=== PATIENT | female | born 1995 | race Caucasian/White ===

== ENCOUNTER → 2022-05-04 | Outpatient (CLI) | payer OTHER, SELFPAY ==
[2022-05-05 22:07] LABS: Chlamydia By Nucleic Acid AMP Negative (Negative)
[2022-05-06 08:55] LABS: Gonococcus By Nucleic Acid AMP Negative (Negative)
== END | disposition home or self-care (01) ==
LOC: LABSPEC 11:20
PROVIDERS: Visit Provider Obstetrics & Gynecology
DX: O09.90 Supervision of high risk pregnancy, unspecified, unspecified trimester (principal); Z3A.00 Weeks of gestation of pregnancy not specified
CPT/HCPCS: 87086; 87088; 87491; 87591

== ENCOUNTER → 2022-05-29 | Outpatient (CLI) | payer OTHER, SELFPAY ==
[2022-05-29 13:12] LABS: Absolute Lymphocyte Count 2.19 X10^3/uL (0.83-4.51); Absolute Neutrophil Count 6.7 X10^3/uL (2.0-7.7); Basophil# 0.04 X10^3/uL; Basophil% 0.4 % (0-1); Eosinophil# 0.08 X10^3/uL; Eosinophils% 0.8 % (0-5); Hematocrit 39.1 % (37-47); Hemoglobin 13.1 g/dL (12.0-15.0); Lymphocyte # 2.19 X10^3/ul (0.83-4.51); Lymphocyte % 22.8 % (19-41); Mean Corp Hgb Conc 33.5 g/dL (32-36); Mean Corpuscular Hgb 31.1 pg (27.0-32.0); Mean Corpuscular Volume 92.9 fL (81-99); Mean Platelet Vol. 9.7 fl (6.2-12.0); Monocyte# 0.53 X10^3/uL; Monocyte% 5.5 % (0-10); NRBC Flagged by Analyzer 0 % (0-5); Neutrophil # 6.74 X10^3/uL (2.7-7.7); Neutrophil % 70.3 % (47-70); Platelet Count 251 K/mm3 (150-450); RBC Distribution Width CV 11.7 % (11.6-14.6); RBC Distribution Width SD 39.7 fl (35.1-43.9); Red Blood Count 4.21 M/mm3 (4.2-5.4); White Blood Count 9.6 K/mm3 (4.4-11.0)
[2022-05-29 13:53] LABS: NATERA MAILED SPECIMEN
[2022-05-29 14:24] LABS: HIV - WCH Non-Reactive (Nonreactive); Hepatitis B Surface Antigen Non-Reactive (Nonreactive); Hepatitis C Antibody Non-Reactive (Nonreactive); Rubella IgG Equiv (Nonreactive); Syphilis Antibodies Non-reactive
== END | disposition home or self-care (01) ==
LOC: LAB 12:43
PROVIDERS: Referring Provider Obstetrics & Gynecology; Visit Provider Obstetrics & Gynecology
DX: O09.90 Supervision of high risk pregnancy, unspecified, unspecified trimester (principal); Z3A.00 Weeks of gestation of pregnancy not specified
CPT/HCPCS: 36415; 85025; 86703; 86762; 86780; 86803; 86850; 86900; 86901; 87340

== ENCOUNTER → 2022-09-18 | Outpatient (CLI) | payer OTHER, SELFPAY ==
[2022-09-18 16:07] LABS: Glucose Challenge Gest 1H 50g 91 mg/dL (70-140)
[2022-09-18 16:29] LABS: Absolute Lymphocyte Count 1.88 X10^3/uL (0.83-4.51); Absolute Neutrophil Count 8.5 X10^3/uL (2.0-7.7); Basophil# 0.04 X10^3/uL; Basophil% 0.4 % (0-1); Eosinophil# 0.04 X10^3/uL; Eosinophils% 0.4 % (0-5); Hematocrit 35.8 % (37-47); Hemoglobin 12.2 g/dL (12.0-15.0); Lymphocyte # 1.88 X10^3/ul (0.83-4.51); Lymphocyte % 16.8 % (19-41); Mean Corp Hgb Conc 34.1 g/dL (32-36); Mean Corpuscular Hgb 32.4 pg (27.0-32.0); Mean Corpuscular Volume 95.2 fL (81-99); Monocyte# 0.66 X10^3/uL; Monocyte% 5.9 % (0-10); NRBC Flagged by Analyzer 0 % (0-5); Neutrophil # 8.49 X10^3/uL (2.7-7.7); Neutrophil % 76.1 % (47-70); Platelet Count 242 K/mm3 (150-450); RBC Distribution Width CV 12.2 % (11.6-14.6); RBC Distribution Width SD 42.5 fl (35.1-43.9); Red Blood Count 3.76 M/mm3 (4.2-5.4); White Blood Count 11.2 K/mm3 (4.4-11.0)
[2022-09-18 17:41] LABS: HIV - WCH Non-Reactive (Nonreactive); Syphilis Antibodies Non-reactive
== END | disposition home or self-care (01) ==
LOC: LAB 15:17
PROVIDERS: Nurse Practitioner Women's Health; PCP Nurse Practitioner Family; Referring Provider Obstetrics & Gynecology; Visit Provider Obstetrics & Gynecology
DX: O09.90 Supervision of high risk pregnancy, unspecified, unspecified trimester (principal); Z3A.00 Weeks of gestation of pregnancy not specified
CPT/HCPCS: 36415; 82950; 85025; 86703; 86780

== ENCOUNTER → 2022-11-13 | Outpatient (CLI) | payer OTHER, SELFPAY | END | disposition home or self-care (01) | LOC: LABSPEC 17:00 | PROVIDERS: PCP Nurse Practitioner Family; Referring Provider Obstetrics & Gynecology; Visit Provider Obstetrics & Gynecology | DX: O09.90 Supervision of high risk pregnancy, unspecified, unspecified trimester (principal) | CPT/HCPCS: 87081 ==

== ENCOUNTER → 2022-11-14 | Outpatient (CLI) | payer OTHER, SELFPAY ==
--- NOTE | 2022-11-14 12:16 | US_ITS ---
STUDY: SECOND AND THIRD TRIMESTER OBSTETRICAL ULTRASOUND - LIMITED REASON FOR EXAM: Female, 27 years old uterine size date discrepancy LMP: March 06, 2022. PRIOR ULTRASOUND: None. TECHNIQUE: Transabdominal TECHNICAL QUALITY: Adequate. FINDINGS: There is a single intrauterine fetus. The fetus is in a cephalic presentation. There is demonstrated cardiac activity with a heart rate of 139 bpm. There is a normal amniotic fluid volume. The largest amniotic fluid pocket measures 6.7 cm x 4.5 cm. The amniotic fluid index (DESMOND) is 14.6 cm. The placenta is anterior in location and is not low lying. There are Grade 2 placental changes. The cervix measures 4 cm in length. BIOMETRY: BPD: 8.39 cm: 33 weeks, 6 days HC: 31.17 cm: 34 weeks, 6 days AC: 31.87 cm: 35 weeks, 6 days FL: 7.32 cm: 37 weeks, 3 days Age by LMP: 36 weeks, 1 days. CHANTEL by LMP: December 11, 2022. age by current US: 35 weeks, 2 days. CHANTEL by current US: December 17, 2022. Estimated weight: 2828 grams, +/- 424 grams, 48 percentile. US/OB Limited With Biometrics IMPRESSION: Single live uterine gestation with a mean gestational age of 35 weeks and 2 days. Electronically Signed: Jack Schwab MD at 14:59 EDT ,
== END | disposition home or self-care (01) ==
LOC: OPUS 12:15
PROVIDERS: PCP Nurse Practitioner Family; Referring Provider Obstetrics & Gynecology; Visit Provider Obstetrics & Gynecology
DX: O26.843 Uterine size-date discrepancy, third trimester (principal); Z3A.35 35 weeks gestation of pregnancy
CPT/HCPCS: 76816

== ENCOUNTER 2022-12-12 05:49 | Inpatient (IN) | payer OTHER, SELFPAY ==
[2022-12-12] VITALS (64 sets, daily range): BP systolic 93–128; BP diastolic 55–85; PULSE 65–100; TEMP 36.3–37.4; O2SAT 94–100; BMI 29.5
[2022-12-12 05:47] LABS: ROM Internal Control Test YES-OK TO RESULT pt. (Internal QC)
[2022-12-12 05:48] LABS: ROM Patient Test POSITIVE (Negative); Record Kit Lot#, ROM+ K1409
[2022-12-12 06:55] LABS: Absolute Lymphocyte Count 2.12 X10^3/uL (0.83-4.51); Absolute Neutrophil Count 8.3 X10^3/uL (2.0-7.7); Basophil# 0.04 X10^3/uL; Basophil% 0.4 % (0-1); Eosinophil# 0.07 X10^3/uL; Eosinophils% 0.6 % (0-5); Hematocrit 37.5 % (37-47); Hemoglobin 12.3 g/dL (12.0-15.0); Lymphocyte # 2.12 X10^3/ul (0.83-4.51); Lymphocyte % 18.6 % (19-41); Mean Corp Hgb Conc 32.8 g/dL (32-36); Mean Corpuscular Hgb 31.4 pg (27.0-32.0); Mean Corpuscular Volume 95.7 fL (81-99); Monocyte# 0.81 X10^3/uL; Monocyte% 7.1 % (0-10); NRBC Flagged by Analyzer 0 % (0-5); Neutrophil # 8.27 X10^3/uL (2.7-7.7); Neutrophil % 72.5 % (47-70); Platelet Count 225 K/mm3 (150-450); RBC Distribution Width CV 12.6 % (11.6-14.6); RBC Distribution Width SD 43.6 fl (35.1-43.9); Red Blood Count 3.92 M/mm3 (4.2-5.4); White Blood Count 11.4 K/mm3 (4.4-11.0)
[2022-12-12] MEDS: Lactated Ringers 1,000 ML 50 ML IV (07:20)
--- NOTE | 2022-12-12 08:07 | HP.PCM.OB_ITS ---
HPI - General General Date of Admission: 12/12/22 Date of Service: 12/12/22 HPI Narrative GURDEEP BROWN, is a 27 F 40.1 weeks who presents with SROM for clear fluid at 0300 this am. Maternal Data Information CHANTEL Calculator Estimated Delivery Date Method Current WG Current Estimate 12/11/22 LMP (Certain) 40w 1d Other Estimates 12/10/22 Ultrasound #1 40w 2d Final CHANTEL: 12/11/22 Final CHANTEL Source: US >20 weeks Gestational age: 40.1 weeks PFSH PFSH Medical History HSV (herpes simplex virus) infection Home Medications multivitamin no.47-iron fum 27 mg-folate no.1 1 mg-dha 300 mg capsule (PNV-DHA) cap PO 04/26/22 [History Last Taken 12/11/22] magnesium 250 mg tablet 250 mg PO DAILY 09/18/22 [History Last Taken 12/11/22] valacyclovir 500 mg tablet (Valtrex) 500 mg PO QDAY #30 tabs 10/30/22 [Rx Last Taken 12/11/22] Allergy/AdvReac Type Severity Reaction Status Date / Time Sulfa (Sulfonamide AdvReac Vomiting Verified 12/12/22 05:10 Antibiotics) Family History Father A-fib Surgical History H/O LEEP History of colposcopy Social History adopted: No household members: spouse housing: house current occupational status: employed current occupation: [employer] from [employer] current occupational exposures/hazards: No pets and animals: Yes (Litter box-) pets and animals: cat(s) and dog(s) history of recent travel: Yes out of state: Yes sexually active: Yes Smoking Status: Never smoker Electronic Cigarette Use: not used alcohol intake: current alcohol intake frequency: holidays/special occasions only substance use type: does not use well-balanced diet: daily or most days caffeine: No eating out: 1-3 times/week seatbelt use: always do you feel safe at home: Yes 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 History 1 Elective abortions Hx Para 0 Spontaneous abortions Hx # Term Pregnancies Ectopic pregnancies Hx # Pregnancies Multiple births # of living children Visit Details Expected Delivery Route/Plan Labor Preferences- CB/BF classes: encouraged labor support person: Lm labor intervention preferences: [] pain management options preferred: limited cut cord/dad catch: cord : yes PP control planned: discussed discussed possible routes of delivery and associated risks: [] special requests: [] Plans Covid status: discussed Flu vaccine: discussed Tdap vaccine: given Rhogam: NA LARC form signed: yes movement and labor precautions reviewed. Problem list reviewed and updated with the most current plan of care details and appropriate orders placed. Relevant counseling for the gestational age provided. Continue routine care and follow up unless otherwise noted in visit notes/problem list details OB Flowsheet Initial Weight: Not Recorded Date -?-?-?-?-?-?-?-?-?-?-?-?- EGA Weight BP Urine Prot -?-?-?-?-?-?-?-?-?-?-?-?- Glucose FHR FuHt Pres Dilation -?-?-?-?-?-?-?-?-?-?-?-?- Effaced St Visit Note 05/04/22 -?-?-?-?-?-?-?-?-?-?-?-?- 8w 3d 147 lb 6 oz 118/78 -?-?-?-?-?-?-?-?-?-?-?-?- 170 -?-?-?-?-?-?-?-?-?-?-?-?- SM- CRL 1.8cm co ns with LMP 05/29/22 -?-?-?-?-?-?-?-?-?-?-?-?- 12w 0d 144 lb 2 oz 110/62 Nega tive -?-?-?-?-?-?-?-?-?-?-?-?- Negative 160 -?-?-?-?-?-?-?-?-?-?-?-?- MH-No VB. Fatigu e improved. No other concerns. PN labs today 06/26/22 -?-?-?-?-?-?-?-?-?-?-?-?- 16w 0d 143 lb 4 oz 106/72 Nega tive -?-?-?-?-?-?-?-?-?-?-?-?- Negative 155 -?-?-?-?-?-?-?-?-?-?-?-?- LC-no vb/crampin g. discussed and declines afp. has anatomy scheduled. LC-no vb/cramping. discussed and declines afp. has anatomy scheduled. normal labs 07/26/22 -?-?-?-?-?-?-?-?-?-?-?-?- 20w 2d 149 lb 6 oz Negative -?-?-?-?-?-?-?-?-?-?-?-?- Negative 160 20 -?-?-?-?-?-?-?-?-?-?-?-?- JV- no lof, vagi nal bleeding, or cramping. pt states that she got a $1600. (has [employer] insurance) 08/25/22 -?-?-?-?-?-?-?-?-?-?-?-?- 24w 4d 152 lb 6 oz 108/73 Nega tive -?-?-?-?-?-?-?-?-?-?-?-?- Negative 160 24 -?-?-?-?-?-?-?-?-?-?-?-?- SM- no vb lof go od fm no regular ctx 09/18/22 -?-?-?-?-?--?-?-?-?-?-?-?- 28w 0d 156 lb 6 oz 104/64 Nega tive -?-?-?-?-?-?-?-?-?-?-?-?- Negative 156 28 -?-?-?-?-?-?-?-?-?-?-?-?- MH-NO Vb, LOF Go od FM. 28 wk labs. Larc, tdap 10/04/22 -?-?-?-?-?-?-?-?-?-?-?-?- 30w 2d 161 lb 108/69 Negative -?-?-?-?-?-?-?-?-?-?-?-?- Negative 153 29 -?-?-?-?-?-?-?-?-?-?-?-?- MH-No Vb, LOF. G ood FM. Denies concerns 10/20/22 -?-?-?-?-?-?-?-?-?-?-?-?- 32w 4d 162 lb 8 oz 104/66 Nega tive -?-?-?-?-?-?-?-?-?-?-?-?- Negative 145 31 -?-?-?-?-?-?-?-?-?-?-?-?- KW- no vb/lof/ct x. good fm. 10/30/22 -?-?-?-?-?-?-?-?-?-?-?-?- 34w 0d 165 lb 2 oz 100/69 Nega tive -?-?-?-?-?-?-?-?-?-?-?-?- Negative 140 34 -?-?-?-?-?-?-?-?-?-?-?-?- SM- no vb lof go od fm no regular ctx 11/13/22 -?-?-?-?-?-?-?--?-?-?-?-?- 36w 0d 165 lb 6 oz 102/70 Nega tive -?-?-?-?-?-?-?-?-?-?-?-?- Negative 140 34 Cephalic 1 -?-?-?-?-?-?-?-?-?-?-?-?- 20 -4 SM- no vb lof good fm no regular ctx gbs done, growth us ordered 11/20/22 -?-?-?-?-?-?-?-?-?-?-?-?- 37w 0d 169 lb 8 oz 107/73 Nega tive -?-?-?-?-?-?-?-?-?-?-?-?- Negative 130 35 Cephalic 1 -?-?-?-?-?-?-?-?-?-?-?-?- 20 -4 LC- no vb/ ctx/lof. good fm. growth scan reassuring. 11/27/22 -?-?-?-?-?-?-?-?-?-?-?-?- 38w 0d 172 lb 117/75 Negative -?-?-?-?-?-?-?-?-?-?-?-?- Negative 140 36 Cephalic 1 .5 -?-?-?-?-?-?-?-?-?-?-?-?- 40 -2 SM- no vb lof good fm no regular ctx 12/06/22 -?-?-?-?-?-?-?-?-?-?-?-?- 39w 2d 171 lb 125/75 Negative -?-?-?-?-?-?-?-?-?-?-?-?- Negative 142 36 Cephalic 1 .5 -?-?-?-?-?-?--?-?-?-?-?-?- 50 -2 JV- no lof , vaginal bleeding, or dec fm. NST FHR Rate Baby A Baseline: 135 Variability:: Moderate Accelerations:: 15 x 15 Decelerations:: None NST Reactive:: Yes FHR Category:: Category I Uterine Activity:: 3-5 minutes ROS Constitutional Constitutional: Denies change in weight, fatigue, fever(s), headache(s), poor appetite or weakness Eyes Eyes: Denies blurry vision, change in vision, floaters, seeing flashes or spots in vision ENT HEENT: Denies dizziness, headache(s), loss taste/smell or sore throat Cardiovascular Cardiovascular: Denies chest pain, dizziness, dyspnea, irregular heart rhythm, lightheadedness, palpitations or rapid heart rate Respiratory/Chest Respiratory/Chest: Denies change in mental status, chest tightness, cough, dyspnea or breast pain Gastrointestinal Gastrointestinal: Denies anorexia, chewing difficulty, constipation, diarrhea or weight changes Genitourinary Genitourinary: Denies difficulty urinating, dysuria, flank pain, genital pain, urinary frequency or urinary urgency Musculoskeletal Musculoskeletal: Denies back pain, difficulty walking, extremity pain, joint pain, muscle cramps or muscle weakness Integumentary Integumentary: Denies lesions or unusual bruising Neurologic Neurologic: Denies abnormal movements, abnormal speech, dizziness, numbness, seizure-like activity, syncope or weakness Psychiatric Psychiatric: Denies behavioral changes, change in appetite, confusion, depression, homicidal ideation, suicidal ideation or suicidal thoughts Endocrine Endocrinology: Denies excessive sweating, polydipsia or polyuria Hematologic/Lymphatic Hematologic/Lymphatic: Denies anemia Allergic/Immunologic Allergic/Immunologic: Denies itchy eyes, lip swelling, throat swelling, tongue swelling or wheezing Vital Signs Vital Signs Vital Signs: 12/12/22 04:57 12/12/22 04:57 12/12/22 04:55 Temperature Temperature Source Temporal Pulse Rate 86 Blood Pressure 117/74 BP Systolic 117 BP Diastolic 74 Pulse Ox 12/12/22 04:55 12/12/22 07:30 12/12/22 07:30 Temperature 98.1 F Temperature Source Pulse Rate 66 Blood Pressure 116/81 H BP Systolic 116 BP Diastolic 81 Pulse Ox 12/12/22 07:44 12/12/22 07:44 12/12/22 07:30 Temperature Temperature Source Temporal Pulse Rate 70 Blood Pressure BP Systolic BP Diastolic Pulse Ox 98 12/12/22 07:30 Temperature 98.0 F Temperature Source Pulse Rate Blood Pressure BP Systolic BP Diastolic Pulse Ox Weight Weight: 172 lb 6.4 oz Body Mass Index (BMI) 29.5 Physical Exam Const alert, oriented x3 and no apparent distress General Appearance: cooperative Orientation / Consciousness: awake HEENT normocephalic Neck full ROM Lymph Lymphatic: no lymphadenopathy noted Chest inspection of chest normal Resp normal respiratory effort and normal air movement Effort and Inspection: able to speak in complete sentences and symmetric chest movement GI soft to palpation and non-tender Inspection: gravid Palpation: soft; Negative for tender external exam normal Back/Spine normal to inspection Extremity normal to inspection and full ROM Skin no rashes or lesions noted Psych mental status grossly normal Appearance: grossly normal Speech: normal speech Labs Labs Labs: Blood Type O POSITIVE Antibody Screen NEGATIVE Hct 37.5 % (37-47) Hgb 12.3 g/dL (12.0-15.0) Pap Smear Negative Obstetrics Ultrasound Syphilis Total Ab Non-reactive Rubella IgG Antibody Equiv (Nonreactive) Hep Bs Antigen Non-Reactive (Nonreactive) Hepatitis C Antibody Non-Reactive (Nonreactive) Chlamydia DNA (JULIUS) Negative (Negative) N.gonorrhoeae DNA (JULIUS) Negative (Negative) HIV 1&2 Antibody Non-Reactive (Nonreactive) Glucose 1 Hr 50 gm 91 mg/dL (70-140) Assessment & Plan (1) History of colposcopy: COMMENT: 09/15/20 CIN2 neg. biopsy and ECC neg. 03/30/21 CIN2 neg. biopsy and ECC neg. (2) H/O LEEP: COMMENT: normal CL screen. 2019. LEEP done 05/18/21 CIN2 with negative margins. repeat pap in 6 months with HPV testing (3) Rubella non-immune status, antepartum: COMMENT: MMR pp (4) HSV (herpes simplex virus) infection: COMMENT: recommend valtrex at 36 weeks. started. (5) Supervision of high risk , antepartum: COMMENT: PRR CHANTEL 12/11/22 Girl, Sherrill Lm (6) : QUALIFIERS: Weeks of gestation: 40 weeks Qualified Code(s): Z3A.40 - 40 weeks gestation of COMMENT: gbs neg. NIPT low risk decline dafp screen and carrier. nl anatomy (7) Active labor at term: PLAN: Patient presents IAL, plan expectant management for , pitocin/AROM PRN if needed. Pain management: plans no epidural. GBS neg. Management of any complications: none I have reviewed the [facility] and made any clinically relevant updates. Charges/Coding Multi Select Codes Urinary/Genital Urinary/Genital CPT Codes: No Charge
[2022-12-12 08:21] LABS: Syphilis Antibodies Non-reactive
[2022-12-12] MEDS: 0.9% Saline Lock 10 ML Syringe IV (09:14)
--- NOTE | 2022-12-12 11:42 | PCM.PN.BLA ---
Progress Note Coping well with contractions current tracing: FHT: 130 Moderate variability reactive no decelerations category I tracing [place]: 3-4 Contractions Membranes: SROM at 0300-remains clear SVE: /-2 reviewed tracing abnormalities since last note: NA A/P: Continue with position changes Consider starting pitocin per protocol if no cervical change with next exam Declines Epidural at this time Anticipate Dr Parry aware of plan and agrees with plan of care Assessment & Plan Assessment/Plan (1) Active labor at term: (2) Supervision of high risk , antepartum: (3) : QUALIFIERS: Weeks of gestation: 40 weeks Qualified Code(s): Z3A.40 - 40 weeks gestation of (4) HSV (herpes simplex virus) infection: (5) Rubella non-immune status, antepartum: (6) H/O LEEP: (7) History of colposcopy: Multi Select Codes Urinary/Genital Urinary/Genital CPT Codes: No Charge
--- NOTE | 2022-12-12 15:49 | PN_ITS ---
Progress Note Coping well with contractions current tracing: FHT: 120 Moderate variability reactive no decelerations category I tracing [place]: 2-4 Contractions Membranes: for bag ruptured at 1545 for clear fluid SVE:/-1 reviewed tracing abnormalities since last note: A/P: Continue with position changes consider starting pitocin per protocol if no cervical change in 2 hours Epidural per anesthesia if desired Anticipate Dr Parry aware of plan and agrees with plan of care Assessment & Plan Assessment/Plan (1) Active labor at term: (2) History of colposcopy: (3) H/O LEEP: (4) Rubella non-immune status, antepartum: (5) HSV (herpes simplex virus) infection: (6) Supervision of high risk , antepartum: (7) : QUALIFIERS: Weeks of gestation: 40 weeks Qualified Code(s): Z3A.40 - 40 weeks gestation of Multi Select Codes Urinary/Genital Urinary/Genital CPT Codes: No Charge
[2022-12-12] MEDS: LACTATED RINGERS 500 ML 999 ML IV ×2 (16:23→17:39)
[2022-12-12] MEDS: Mag Hydrox/Al Hydrox/Simeth 30 ML UDC PO (16:40)
[2022-12-12] MEDS: Ondansetron 4 MG/2 ML Vial IV (17:05)
[2022-12-12] MEDS: fentaNYL-bupivacaine (epidural) 100 ML BAG EPIDURAL (17:36)
[2022-12-12] MEDS: proCHLORPERazine 10 MG/2 ML Vial IV (19:38)
[2022-12-12] MEDS: Oxytocin 15 Units/NS 250ml 15 UNITS/250 ML IV.SOLN 83 UNITS IV (21:11)
[2022-12-12] MEDS: Oxytocin 10 UNITS/ML Vial IM (21:12)
[2022-12-12] MEDS: Methylergonovine 0.2 MG/ML Ampul IM (21:15)
--- NOTE | 2022-12-12 21:36 | EX.PCM.OBRPT ---
Assessment & Plan (1) Vaginal delivery: COMMENT: KW IAL 40.1 weeks (2) Active labor at term: (3) History of colposcopy: COMMENT: 09/15/20 CIN2 neg. biopsy and ECC neg. 03/30/21 CIN2 neg. biopsy and ECC neg. (4) H/O LEEP: COMMENT: normal CL screen. 2019. LEEP done 05/18/21 CIN2 with negative margins. repeat pap in 6 months with HPV testing (5) Rubella non-immune status, antepartum: COMMENT: MMR pp (6) HSV (herpes simplex virus) infection: COMMENT: recommend valtrex at 36 weeks. started. (7) Supervision of high risk , antepartum: COMMENT: PRR CHANTEL 12/11/22 Girl, Sherrill Lm (8) : QUALIFIERS: Weeks of gestation: 40 weeks Qualified Code(s): Z3A.40 - 40 weeks gestation of COMMENT: gbs neg. NIPT low risk decline dafp screen and carrier. nl anatomy Maternal Data Information CHANTEL Calculator Estimated Delivery Date Method Current WG Current Estimate 12/11/22 LMP (Certain) 40w 1d Other Estimates 12/10/22 Ultrasound #1 40w 2d Final CHANTEL: 12/11/22 Final CHANTEL Source: US >20 weeks Gestational age: 40.1 weeks Vaginal Delivery Maternal Presentation Maternal Presentation: Active Labor Maternal Presentation: Progressed well to 10cm dilated and made steady progress with effective maternal pushing. Delivered the head in LELIA presentation. The head was delivered atraumatically and a loose nuchal cord was identified and was easily reduced over the 's head. The anterior and posterior shoulders delivered without complication followed by the rest of the infant and the infant was placed on the maternal abdomen. Delayed cord clamping was employed for approximately 3 minutes. Cord was clamped and cut and gentle traction was applied to the cord and the placenta delivered spontaneously. 3 vessel cord noted. Pitocin IV and IM given and Methergine IM given for additional bleeding and boggy uterus. Internal uterine exploration performed and not found to have any clots. Uterus firmed after Methergine and massage and bleeding slowed to expected amount. The perineum and vagina were inspected and noted to have a second degree laceration which was repaired with 3-0 Vicryl in the usual fashion. EBL was 300cc. Patient and infant tolerated delivery well. Apgars 8/9. Dr Parry notified of vaginal delivery and orders reviewed. Physician agrees with current plan of care. Operative Information Date of Procedure: 12/12/22 Pre-Operative Diagnosis: See AP comments Post-Operative Diagnosis: Same Surgery / Procedure Performed: Spontaneous Vaginal Delivery supervisor of guidance and testing #1: Salma Willingham Type of Anesthesia: Epidural Estimated Blood Loss: 300 Time of Delivery: 21:05 Findings Presentation: Vertex Amniotic Membrane Rupture Type: Spontaneous Time of Membrane Rupture: 0300 Amniotic Fluid Description: Clear Placental Delivery Description: Spontaneous Placenta Disposition: [facility] Cord Vessel Description: 3 Vessels Cord Entanglement: Around neck x 1, loose A Gender: Female (1 minute): 8 (5 minute): 9 Delayed Cord Clamping: Yes Post Vaginal Delivery Medications Given After Delivery: IV Pitocin, IM Pitocin and IM Methergin Episiotomy Description: None Laceration: 2nd degree Complication Complications: None Multi Select Codes Urinary/Genital Urinary/Genital CPT Codes: 85462 Vaginal Delivery [facility]
--- NOTE | 2022-12-12 21:45 | DCINST_ITS ---
Discharge Instructions Diet Discharge Diet: No restrictions Activity Discharge Activity: Return to Normal Activity May resume sexual activity in: 6-8 weeks Dressing / Incision Call your doctor if you observe: Fever of 101 or Higher, Coldness, Increased Pain, Numbness or Tingling, Change in Color, Inability to urinate, Inability to have a bowel movement, Using more than 1 pad per hour, Shortness of breath, Dizziness, Fainting spells, Swelling in the ankles, Chest pain, Increased palpitations (irregular heartbeat), Calf discomfort and Uncontrolled pain Follow Up Care Please Follow Up With: Salma Willingham CNM When: Please call the office to schedule your follow up appointment in 6 weeks. If you had high blood pressure please call to schedule an appointment in 2 weeks. Test Results: Test results from this visit will be discussed in further detail at your follow- up appointment, if applicable. Discharge Plan Admission Admit Date/Time: 12/12/22 05:49 Attending Provider: Larissa Smith Primary Care Provider: SHIVANI MONTESINOS Discharge Orders/Prescriptions Prescriptions: No Action PNV-DHA 27 mg iron-1 mg -300 mg capsule PO magnesium 250 mg tablet 250 mg PO DAILY valacyclovir [Valtrex] 500 mg tablet 500 mg PO QDAY Qty: 30 12RF Referrals / Follow Up: SHIVANI MONTESINOS NP-C [Primary Care Provider] -
[2022-12-13] MEDS: Benzocaine/Lanolin/Aloe Vera 1 SPRAY EACH TOPICAL (00:01)
[2022-12-13] MEDS: Ibuprofen 600 MG Tablet PO (02:36)
[2022-12-13 03:21] VITALS: BP 103/57; PULSE 76; RESP 16; TEMP 36.2; O2SAT 96
[2022-12-13 07:55] VITALS: BP 106/65; PULSE 89; RESP 16; TEMP 37.1
--- NOTE | 2022-12-13 07:55 | PCM.PN.OB ---
Subjective Subjective Patient doing well without complaints. Tolerating PO. Ambulating and voiding without difficulty. Feeding well. Denies chest pain, shortness of breath, calf pain/swelling, fevers, chills, lightheadedness. Objective Data Objective Data Vital Signs: Vital Signs Temp Pulse Resp BP Pulse Ox O2 Del Method 97.2 F L 76 16 103/57 L 96 Room Air 12/13/22 03:21 12/13/22 03:21 12/13/22 03:21 12/13/22 03:21 12/13/22 03:21 12/13/22 03:21 Oxygen Delivery Method Room Air Weight: 172 lb 6.4 oz Body Mass Index (BMI) 29.5 Intake & Output: Intake and Output for Last 24 Hours 12/11/22 12/12/22 12/13/22 23:59 23:59 23:59 Intake Total 3905 / 3905 250 / 250 Output Total 1000 / 1000 900 / 900 Balance 2905 / 2905 -650 / -650 Lab / Micro Data 12/12/22 06:45 Labs: Laboratory Results - last 24 hr 12/12/22 06:45: Syphilis Total Ab Non-reactive Physical Exam Const alert and oriented x3 HEENT normocephalic Eyes PERRL Neck full ROM Resp normal respiratory effort GI soft to palpation GI Narrative: FF below U Assessment & Plan (1) Vaginal delivery: COMMENT: KW IAL 40.1 weeks (2) Rubella non-immune status, antepartum: COMMENT: MMR pp PLAN: Plan s/p PPD # 1 1. routine post delivery care 2. breast feeding- support given 3. rh positive 4. rubella nonimmune
[2022-12-13] MEDS: Senna/Docusate Sodium 1 Tablet PO (08:38)
[2022-12-13 11:50] VITALS: BP 93/51; PULSE 84; RESP 16; TEMP 36.8
--- NOTE | 2022-12-13 12:16 | CASEMGMT ---
Social Work Assessment Labor and Delivery Unit Patient Address:[address] [place] [address] Phone number: [phone] Date of Referral: 12/12/22 Time of Referral:? 0641 Referred By: Larissa Smith Date of Intervention: ??12/13/22 Time of Intervention:? 1020 Reason for Referral:? Parental addict/ alcoholic Sw completed chart review and acknowledges social work consult entered due to mother of baby (MOB- Luigi) having a parent with an alcohol problem. Sw presented to bedside and introduced self to MOB and father of baby (FOB- Lm). Sw explained reason for sw consult and completed psychosocial assessment. History obtained from: medical records and mother of baby (CURTIS)??and FOB. ? Household composition: Residing in the family home is MOB and FOB, and now baby. Parents report that housing is safe and secure, no concerns at this time. Patient's parent/guardian status:? Parents report that they met while in high school, they have been together for 6 years. No reported issues regarding domestic violence or intimate partner violence. ? Medical History: CURTIS is 27 year old female who is 1, para 0- now 1. CURTIS received routine care during with [place]. CURTIS delivered baby at 40 weeks via vaginal delivery. Baby was born on 12/12/22, named Kaci Felton, and she weighed 7lb 6oz and her apgars were 8 and 9 at one and five minutes of life respectfully. CURTIS states that she is breast feeding and it is going well. CURTIS has a pump for home. Baby will be followed by Dr. Segundo for pediatrics. Educational Status: Both parents are high school graduates. CURTIS also obtained her Bachelors degree in animal science. No concerns regarding reading, learning or comprehension. ? Financial Status: Both parents are gainfully employed outside of the home. CLARISA works for [employer] and is able to take some time off of work now that baby has been born. 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 Supplies: Parents report to obtaining all necessary baby items including: car seat, safe sleep space, clothes, diapers, wipes and a breast pump. Childcare/Caregiver(s):?MOB will be the primary caregiver to baby while she is on maternity leave along with FOB when he is not at work. MOB states that she is able to apron worker, and is hoping to be able to keep baby home with her for at least six months. MOB states that after that time they have family members who will be able to watch baby a couple of times a week. Transportation:?? Both parents have their drivers license and reliable means of transportation. No transportation barriers at this time. Programs/Agencies Involved: ?Parents state that they are not connected to any community resources at this time. Sw provided parents with list of [facility] resources should any needs or concerns present themselves. ?? Children Services/Legal Issues: No history of involvement, no issues or concerns warranting a referral at this time. ??? Behavioral Health Issues: ??Mental Health History:?Both parents deny mental health history/ diagnoses. ?? Substance Use History:?MOB denies substance use prior to and during . ? Family History:?MOB states that her mother is a recovering alcoholic. MOB states that her mom has been sober for three years. MOB states that she trusts her mom at this time and knows that her mom has been sober. MOB states that there will be times when her mom will be a primary caregiver to baby, and currently MOB feels comfortable with that plan. CLARISA states that he also has a parent with a history of alcoholism, but does not believe that it is an issue at this time. ? Drug Screens: ?No urine screens observed in chart review. ? Family/Social Stressors:?Parents deny any stressors or concerns at this time. Parents state that they are happy that baby was born and she is healthy. Support Systems: Parents report that both sets of grandparents are extremely supportive, along with other family members and friends. Depression/Shaken Baby/Safe Sleeping:? Sw educated parents on signs and symptoms of baby blues and depression. Sw provided literature for parents that provided information regarding appropriate coping skills should MOB experience symptoms. Sw educated parents on shaken baby prevention and ABCs of safe sleep. Parents expressed understanding. ASSESSMENT:? MOB and baby admitted following labor and delivery. MOB and FOB with no mental health history. Parents with adequate supports and have obtained all necessary baby items for baby. Parents were talkative and engaged throughout assessment. Parents appreciative of sw involvement and support. PLAN:? MOB and baby to be discharged when medically ready. ?No other services requested or indicated. Keith Sheth, GLOBE TESTER, [employer]
[2022-12-13 15:15] VITALS: BP 100/59; PULSE 88; RESP 16; TEMP 36.8
[2022-12-13 20:07] VITALS: BP 105/63; PULSE 83; RESP 16; TEMP 36.3; O2SAT 99
[2022-12-13 21:07] LABS: Hematocrit 34.2 % (37-47); Hemoglobin 11.3 g/dL (12.0-15.0); Mean Corpuscular Hgb 31.6 pg (27.0-32.0); Mean Corpuscular Volume 95.5 fL (81-99); Mean Platelet Vol. 10.5 fl (6.2-12.0); Platelet Count 223 K/mm3 (150-450); RBC Distribution Width CV 12.7 % (11.6-14.6); RBC Distribution Width SD 43.8 fl (35.1-43.9); Red Blood Count 3.58 M/mm3 (4.2-5.4); White Blood Count 15.6 K/mm3 (4.4-11.0)
[2022-12-14] MEDS: Acetaminophen 500 MG Tablet 1000 MG PO (01:43)
[2022-12-14 03:23] VITALS: BP 124/72; PULSE 70; RESP 15; TEMP 36.2; O2SAT 98
[2022-12-14 08:00] VITALS: BP 106/71; PULSE 75; RESP 14; TEMP 36.3
--- NOTE | 2022-12-14 08:06 | PCM.PN.OB ---
Subjective Subjective Patient doing well without complaints. Tolerating PO. Ambulating and voiding without difficulty. feeding well. Denies chest pain, shortness of breath, calf pain/swelling, fevers, chills, lightheadedness. Objective Data Objective Data Vital Signs: Vital Signs Temp Pulse Resp BP Pulse Ox O2 Del Method 97.2 F L 70 15 124/72 H 98 Room Air 12/14/22 03:23 12/14/22 03:23 12/14/22 03:23 12/14/22 03:23 12/14/22 03:23 12/14/22 03:23 Oxygen Delivery Method Room Air Weight: 172 lb 6.4 oz Body Mass Index (BMI) 29.5 Intake & Output: Intake and Output for Last 24 Hours 12/12/22 12/13/22 12/14/22 23:59 23:59 23:59 Intake Total 3905 / 3905 250 / 250 Output Total 1000 / 1000 900 / 900 Balance 2905 / 2905 -650 / -650 Lab / Micro Data 12/13/22 21:00 Labs: Laboratory Results - last 24 hr 12/13/22 21:00: WBC 15.6 H, RBC 3.58 L, Hgb 11.3 L, Hct 34.2 L, MCV 95.5, MCH 31.6, MCHC 33.0, RDW Std Deviation 43.8, RDW Coeff of Marilou 12.7, Plt Count 223, MPV 10.5 ROS Constitutional Constitutional: Reports systems reviewed and no addt'l complaints, except as documented Cardiovascular Cardiovascular: Reports systems reviewed and no addt'l complaints, except as documented Respiratory/Chest Respiratory/Chest: Reports systems reviewed and no addt'l complaints, except as documented Gastrointestinal Gastrointestinal: Reports systems reviewed and no addt'l complaints, except as documented Physical Exam Const alert, oriented x3 and no apparent distress HEENT Head and Scalp: atraumatic Resp normal respiratory effort GI soft to palpation and non-tender Bimanual Exam - Vag & Uterus: uterus non-tender Uterus Palpation: uterus fundus firm (below Umbilicus) Assessment & Plan (1) Vaginal delivery: COMMENT: KW IAL 40.1 weeks PLAN: Plan routine pp care dc home
[2022-12-14] MEDS: Senna/Docusate Sodium 1 Tablet PO (09:16)
== END 2022-12-14 10:35 | disposition home or self-care (01) | DRG 806 ==
LOC: WPOUT 05:49 → WP 05:49
PROVIDERS: Advanced Practice Midwife; Admitting Provider Registered Nurse; PCP Nurse Practitioner Family; Referring Provider Registered Nurse; Visit Provider Registered Nurse
DX: O48.0 Post-term pregnancy (principal); Z37.0 Single live birth; O98.52 Other viral diseases complicating childbirth; B00.9 Herpesviral infection, unspecified; Z3A.40 40 weeks gestation of pregnancy
CPT/HCPCS: 59025; 59050; 84112; 85025; 85027; 86780; 86850; 86900; 86901; 99221; J7120; A4216; G0378; J2405

== ENCOUNTER → 2023-05-28 | Outpatient (CLI) | payer OTHER, SELFPAY ==
[2023-05-31 16:00] LABS: HPV Reflexed? NOT INDICATED
== END | disposition home or self-care (01) ==
LOC: LABSPEC 14:08
PROVIDERS: PCP Nurse Practitioner Family; Referring Provider Obstetrics & Gynecology; Visit Provider Obstetrics & Gynecology
DX: Z12.4 Encounter for screening for malignant neoplasm of cervix (principal)
CPT/HCPCS: 88175; G0145

== ENCOUNTER → 2024-06-03 | Outpatient (CLI) | payer OTHER, SELFPAY | END | disposition home or self-care (01) | LOC: LABSPEC 16:19 | PROVIDERS: PCP Nurse Practitioner Family; Referring Provider Obstetrics & Gynecology; Visit Provider Obstetrics & Gynecology | DX: Z12.4 Encounter for screening for malignant neoplasm of cervix (principal) | CPT/HCPCS: 87624; 88175; G0145 ==

== ENCOUNTER → 2025-01-20 | Outpatient (CLI) | payer OTHER, SELFPAY ==
--- NOTE | 2025-01-20 16:18 | US_ITS ---
PROCEDURE: TRANSVAGINAL W/PREG US 01/20/2025 REASON FOR EXAM: VIABILITY TECHNIQUE: Procedure Code: USTVAGP Modality: US Procedure: TRANSVAGINAL W/PREG US FINDINGS Uterus measures 10.2 x 7.7 x 6.6 cm. No uterine fibroids are noted. Cervix is closed. Intrauterine gestational sac measures 3.3 cm, yolk sac is 4 mm, and CRL is 21 mm corresponding with 8 weeks and 4 days gestational age with CHANTEL of 08/28[birth year]. No heart tone is detected at this time. There is heterogenous area measuring 1.4 x 2.8 x 1.5 cm surrounding the gestational sac. Right ovary measures 3.5 x 3.2 x 1.8 cm and left ovary measures 2.4 x 1.3 x 0.9 cm. There is normal bilateral symmetrical blood flow within bilateral ovaries. Cyst within left ovary measuring 1.9 x 1.9 x 1.6 cm. Minimal free fluid within the cul-de-sac. US/Transvaginal w/Preg US IMPRESSION: No heart tone is detected at this time, which is concerning for early fet al demise given sonographic gestational age of 8 weeks and 4 days. There is heterogenous area measuring 1.4 x 2.8 x 1.5 cm surr ounding the gestational sac. Reading Location: [id number]
== END | disposition home or self-care (01) ==
LOC: US 16:17
PROVIDERS: PCP Nurse Practitioner Family; Referring Provider Advanced Practice Midwife; Visit Provider Advanced Practice Midwife
DX: O20.0 Threatened abortion (principal); Z3A.00 Weeks of gestation of pregnancy not specified
CPT/HCPCS: 76817

== ENCOUNTER → 2025-01-20 | Outpatient (CLI) | payer OTHER, SELFPAY ==
--- OUTSIDE RECORDS SUMMARY | 2025-01-20 19:12 | XMS RPT_ITS | CCD ---
Author Organization [facility] Inform ion Partnership [facility] Care Team Providers Care Sheeter Helper Name Role Phone Jeffery, Shannon Attending Unavailable AYANA, NIGHAT B Primary Care Unavailable Jeffery, Shannon Admitting Unavailable Jeffery, Shannon Attending Unavailable AYANA, NIGHAT B Primary Care Unavailable Jeffery, Shannon Attending Unavailable AYANA, NIGHAT B Primary Care Unavailable Jeffery, Shannon Attending Unavailable AYANA, NIGHAT B Primary Care Unavailable Kamila, Akua L Admitting Unavailable Kamila, Akua L Attending Unavailable Kamila, Akua L Primary Care Unavailable Jeffery, Shannon Attending Unavailable Kamila, Akua L Primary Care Unavailable Kamila, Akua L Admitting Unavailable Kamila, Akua L Attending Unavailable Kamila, Akua L Primary Care Unavailable Jeffery, Shannon Admitting Unavailable Jeffery, Shannon Attending Unavailable AYANA, NIGHAT B Primary Care Unavailable Jeffery, Shannon Attending Unavailable AYANA, NIGHAT B Primary Care Unavailable FillmoreNeena franks Unavailable Unavailable Unavailable Unavailable Unavailable Wood, Shivani L Unavailable Unavailable Unavailable Wood, . Shivani Ericka Primary Care Unav ailable Wood, Ms. Shivani Ericka Attending Unav ailable Wood, Ms. Shivani Ericka Attending Unav ailable Wood, Ms. Shivani Ericka Primary Care Unav ailable Wood, Ms. Shivani Ericka Attending Unav ailable Wood, Ms. Shivani Ericka Primary Care Unav ailable Fillmore, Dr. Neena Ge Attending Unavailabl e Fillmore, Dr. Neena Ge Referring Unavailabl e WOOD, Ms. SHIVANI Primary Care Unavailable WOOD, Ms. SHIVANI Primary Care Unavailable WOOD, Ms. SHIVANI Attending Unavailable WOOD, Ms. SHIVANI Referring Unavailable Km, Dr. Neena Ge Attending Unavailabl e WOOD, . SHIVANI Primary Care Unavailable Care Physician, No Primary Primary Care Provider Unavailable Care Physician, No Primary Referring Provider Un available Dr. Joyce Parry Attending Provider [phone] LV ECHEVARRIA Primary Care Unavailable MARCE GREGORIO Referring Unavailable ORQUIDEA ANTONY Attending Unavailable Care Physician, No Primary Primary Care Provider Unavailable Care Physician, No Primary Referring Provider Un available Hollywood SEAMLESS HOSIERY KNITTER, SEAMLESS HOSIERY KNITTER-C Marce Attending Provider [phone] REBECA Smith Attending Provider [phone] Dr. Karin Banda Attending Provider [phone] Dr. Joyce Parry Attending Provider [phone] RACHEL MONTESINOS Primary Care Provider Care Physician, No Primary Primary Care Provider Unavailable Care Physician, No Primary Referring Provider Un available Aminata SEAMLESS HOSIERY KNITTER SEAMLESS HOSIERY KNITTERCalixtoC Marce Attending Provider [phone] REBECA Willingham Attending Provider [phone] REBECA Smith Attending Provider [phone] Dr. Karin Banda Attending Provider [phone] REBECA Smith Admit Provider REBECA Smith Referring Provider REBECA Smith Other Provider CHAVO MONTESINOS-C SHIVANI Primary Care Provider CHAVO MONTESINOS-C SHIVANI Referring Provider [phone] Joyce Parry Attending Provider [phone] Wood LONG WALL SHEAR OPERATOR-ASSESSMENT EXPERT, Shivani L Primary Care Provider WOOD SHIVANI L Attending Unavailable WOOD, SHIVANI L Primary Care Unavailable WOOD, SHIVANI Primary Care Unavailable Joyce Parry Referring Unavailable Joyce Parry Attending Unavailable WOOD, SHIVANI Primary Care Unavailable Joyce Parry Attending Unavailable WOOD, SHIVANI Referring Unavailable WOOD, SHIVANI Referring Unavailable WOOD, SHIVANI Primary Care Unavailable [place] SEAMLESS HOSIERY KNITTERPriscila Attending Unavailable Allergies Allergy Classification Reported Allergen(s) Allergy Type Date of Onset Reaction(s) Facility (3 sources) Sulfonamides (Antibiotic); Translations: [Sulfa Drugs] Allergy to drug (finding) [facility] Work Phone: (5 sources) Sulfonamides (Antibiotic); Translations: [SULFA (SULFONAMIDE ANTIBIOTICS)] Propensity to adverse reactions 3 Vomiting [facility] (1 source) Sulfonamides (Antibiotic) Drug Allergy 4 Nausea/vomiting [facility] (1 source) Sulfonamides (Antibiotic) Drug allergy (disorder) 5 [facility] Repository Medications Current Medications Medication Drug Class(es) Dates Sig (Normalized) Sig (Original) Magnesium (3 sources) Start: 09-18-2022 take 250 mg by mouth once daily Magnesium Active 250 MG PO DAILY September 18, 2022 12:00am Multivit 24-Jziy-Gnwqfm 1-Dha (Pnv-Dha) 27 mg iron-1 mg -300 mg capsule (4 sources) Start: 04-26-2022 Multivit 34-Pyxj-Opmzjy 1-Dha (Pnv-Dha) 27 mg iron-1 mg -300 mg capsule Active CAP PO April 26, 2022 12:00am valACYclovir 500 mg oral tablet (2 sources) Herpesvirus Nucleoside Analog DNA Polymerase Inhibitor, Herpes Simplex Virus Nucleoside Analog DNA Polymerase Inhibitor, Herpes Zoster Virus Nucleoside Analog DNA Polymerase Inhibitor Start: 10-30-2022 take 1 tablet by mouth once daily Valacyclovir (Valtrex) 500 mg tablet Active 500 MG PO daily October 30, 2022 12:00am Completed/Discontinued Medications Medication Drug Class(es) Dates Sig (Normalized) Sig (Original) Norethin-Eth Estradiol-Fe 0.8-25 MG-MCG Oral Tablet Chewable (1 source) Estrogen Start: 12-12-2018 take 1 tablet by mouth once daily Norethin-Eth Estradiol-Fe 0.8-25 MG-MCG Oral Tablet Chewable Take 1 tablet daily Quantity: 1 Refills: 11 Neena Denny DO Start : 12-Dec-2018 Active 28 Tablet Pack Levonorgestrel (1 source) Progestin, Progestin-containin g Intrauterine Device Mirena (52 MG) IUD Refills: 0 Active Multi Vitamin TABS (2 sources) Multi Vitamin TABS Quantity: 0 Refills: 0 Ordered: 24-Oct-2022 DO Active Norethin-Eth Estradiol-Fe 0.8-25 MG-MCG Oral Tablet Chewable (1 source) Start: 12-12-2018 take 1 tablet by mouth once daily Norethin-Eth Estradiol-Fe 0.8-25 MG-MCG Oral Tablet Chewable Take 1 tablet daily Quantity: 1 Refills: 11 Ordered: 22-Sep-2019 Jimy Hernandez MD Start : 12-Dec-2018 Active Problems Active Problems Problem Classification Problem Date Documented Da te Episodic/Chronic Cardiac dysrhythmias (7 sources) Palpitations; Translations: [Palpitations] Onset: 10-07-2021 Episodic Contraceptive and procreative management (12 sources) Patient encounter status; Translations: [Encounter for removal of intrauterine contraceptive device] Episodic Hemorrhoids (2 sources) Hemorrhoids; Translations: [Hemorrhoids] Onset: 07-19-2023 Episodic Malaise and fatigue (4 sources) Fatigue; Translations: [Other malaise and fatigue] Onset: 07-19-2023 07-19-2023 Episodic Other complications of (4 sources) High risk ; Translations: [Supervision of high risk , unspecified, unspecified trimester] 04-26-2022 Episodic Other complications of (17 sources) Supervision of high risk , unspecified, unspecified trimester; Translations: [Supervision of unspecified high-risk ] 05-04-2022 Episodic Other complications of (3 sources) Rubella non-immune; Translations: [Supervision of other high risk pregnancies, unspecified trimester] 05-29-2022 Episodic Other complications of (15 sources) Supervision of other high risk pregnancies, unspecified trimester; Translations: [Other specified complications of , antepartum condition or complication] 06-26-2022 Episodic Other complications of (2 sources) Uterine size for dates discrepancy; Translations: [Uterine size-date discrepancy, third trimester] 12-11-2022 Episodic Other complications of (4 sources) Uterine size-date discrepancy, third trimester; Translations: [Uterine size date discrepancy, antepartum condition or complication] 11-13-2022 Episodic Other endocrine disorders (1 source) Menarche; Translations: [History of Menarche] Chronic Other female genital disorders (1 source) Pain in female genitalia on intercourse; Translations: [Unspecified dyspareunia] 05-28-2023 Chronic Other female genital disorders (1 source) Unspecified dyspareunia; Translations: [Dyspareunia] 05-28-2023 Chronic Other female genital disorders (4 sources) Cervical intraepithelial neoplasia grade 1; Translations: [Mild dysplasia of cervix] Onset: 07-19-2023 07-19-2023 Episodic Other gastrointestinal disorders (2 sources) History of hemorrhoid; Translations: [Personal history of other diseases of the digestive system] Onset: 07-19-2023 07-19-2023 Episodic Other and delivery including normal (20 sources) ; Translations: [Encounter for supervision of normal , unspecified, unspecified trimester] 05-04-2022 Episodic Other screening for suspected conditions (not mental disorders or infectious disease) (3 sources) Encounter for screening for malignant neoplasm of cervix; Translations: [Encounter for screening for malignant neoplasm of cervix] Onset: 12-05-2021 Episodic Other upper respiratory disease (1 source) Allergic rhinitis; Translations: [Allergic rhinitis, unspecified] Onset: 03-29-2011 07-19-2023 Chronic Residual codes; unclassified (7 sources) Past history of procedure; Translations: [Other postprocedural status] 08-29-2022 Episodic Comment on above: 09/22/2019: ASC-US, HPV [id number] NEG PAP, 03/22/2018 LGSIL; Residual codes; unclassified (3 sources) History of loop electrosurgical excision procedure; Translations: [Other specified postprocedural states] 08-29-2022 Episodic Residual codes; unclassified (20 sources) Other specified postprocedural states; Translations: [Personal history of surgery to other organs] 08-25-2022 Episodic Unclassified (2 sources) Annual Exam; Translations: [Annual Exam] Onset: 07-19-2023 Viral infection (20 sources) Herpes simplex; Translations: [Herpesviral infection, unspecified] 05-04-2022 Episodic Past or Other Problems Problem Classification Problem Date Documented Da te Episodic/Chronic Unclassified (2 sources) Patient encounter status; Translations: [Encounter for IUD removal] Unclassified (6 sources) Finding of menstrual bleeding; Translations: [Menstruation] Comment on above: Onset age 12 years; Unclassified (1 source) Onset: 07-19-2023 07-19-2023 Results Test Name Value Interpretation Reference Range Facility Resident In Diagnostic Radiology Office Visit Reporton 06-03-2024 Resident In Diagnostic Radiology Office Visit Report [facility]'s [address], [address] [place] [id number] OFFICE VISIT Date of Service: 06/03/24 MR#: [id number] Acct: [id number] Name: LUIGI HANSON Rep #: [id number] : 1995 Provider: Dr. 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: No Is patient in pain?: No Allergies Sulfa (Sulfonamide Antibiotics) Adverse Reaction (Verified 06/03/24 14:40) Vomiting Medications ???Medication ???Instructions ???Recorded ???Confirmed ???Type multivitamin no.47-iron fum 27 cap PO 04/26/22 06/03/24 History mg-folate no.1 1 mg-dha 300 mg capsule (PNV-DHA) magnesium 250 mg tablet 250 mg PO DAILY 09/18/22 06/03/24 History Is last menstrual period known: Yes Last Menstrual Period: 05/16/24 Post menopausal: No Patient : No : No PFSH Medical History HSV (herpes simplex virus) infection Surgical History History of colposcopy H/O LEEP Family History Father A-fib Social History (Updated 06/03/24 @ 14:41 by Marce Villavicencio) adopted: No household members: spouse housing: house number of children: 1 current occupational status: employed current occupation: [employer]- from home current occupational exposures/hazards: No pets and animals: Yes (Litter box-) pets and animals: cat(s) and dog(s) history of recent travel: Yes out of state: Yes sexually active: Yes Smoking Status: Never smoker Electronic Cigarette Use: not used alcohol intake: current alcohol intake frequency: holidays/special occasions only substance use type: does not use well-balanced diet: daily or most days caffeine: No eating out: 1-3 times/week seatbelt use: always do you feel safe at home: Yes 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 Date Name GA/Weeks Outcome Route Bth Weight Infant Gen Labor Lgth Anesthesia Del Locatn Provider FOB 12/12/22 Kaci 40 live - full term Female epidural [facility] Rex Willingham CNM Lm Delivery Date: 12/12/22 Last Updated by: Rayna Carbajal LPN see problem list for complications, and KW IAL Girl 40.1 HPI Encounter for routine gynecological examination Details: LUIGI HANSON is a 29 year old who presents for annual exam. Last PAP: 05/28/2023 - normal History of abnormal PAP: Last mammogram: not due History of abnormal mammogram: Colon cancer screening: not due Other preventative health care screenings: PCP Shawn Female Reproductive History Last Menstrual Period: 05/16/24 Cycle Length: 21-35 Bleeding Duration: 5 Questions: metorrhagia: No, sexually active: Yes, dyspareunia: No and PCB: No Menopausal Symptoms: No hot flashes, No night sweats, No weight change, No mood changes, No difficulty concentrating, No sleep problems and No change in libido ROS Const Constitutional: Reports as per HPI; Denies fatigue, increased appetite, poor appetite, night sweats, weight gain or weight loss Cardio Card: Denies chest pain Resp Resp: Denies cough or dyspnea GI GI: Reports as per HPI; Denies abdominal pain, bloating, constipation, nausea or vomiting : Reports as per HPI and other; Denies difficulty voiding, dysuria, hematuria, hot flashes, nipple discharge, pelvic pain, prolapse symptoms, urinary frequency, urinary incontinence, urinary urgency, vaginal discharge, vaginal dryness, vaginal odor or vaginal pruritus Skin Skin/Breast: Denies changing lesions, breast mass, breast pain, breast skin changes or nipple discharge Psych Psych: Denies anxiety, change in libido, depression or difficulty concentrating Exam Const General: cooperative, healthy appearing, comfortable, no acute distress, well developed and well groomed HENCA Head: normal to inspection and normocephalic Ears: hearing grossly normal bilaterally and external ears normal Nose: external nose normal Face and sinus: normal facial exam Neck Neck: normal visual inspection, full ROM and no lymphadenopathy Thyroid: thyroid normal Chest Chest palpation inspection: normal inspection of the chest Breast inspection: normal inspection of the breasts and normal inspection of the axillae Breast palpation: normal palp (more content not included)... Normal [facility] [address] [place] [address] OFFICE VISIT Date of Service: 06/30/23 MR#: [id number] Acct: [id number] Name: LUIGI HANSON Rep #: [id number] : 1995 Provider: Priscila Mojica NP Age/Sex: 28/F [place] [facility] [place]: Signed Intake Vital Signs 05/28/23 13:05 07/24/23 15:41 Height 5 ft 4 in 5 ft 4 in Intake Visit Reasons: assessment Chief Complaint: assessment Accompanied by: Allergies Sulfa (Sulfonamide Antibiotics) Adverse Reaction (Verified 05/28/23 13:03) Vomiting : Yes PFSH PFSH Medical History HSV (herpes simplex virus) infection Surgical History H/O LEEP History of colposcopy Family History Father A-fib Social History adopted: No household members: spouse housing: house current occupational status: employed current occupation: 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 current occupational exposures/hazards: No pets and animals: Yes (Litter box-) pets and animals: cat(s) and dog(s) history of recent travel: Yes out of state: Yes sexually active: Yes Smoking Status: Never smoker Electronic Cigarette Use: not used alcohol intake: current alcohol intake frequency: holidays/special occasions only substance use type: does not use well-balanced diet: daily or most days caffeine: No eating out: 1-3 times/week seatbelt use: always do you feel safe at home: Yes 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 Date Name GA/Weeks Outcome Route Bth Weight Infant Gen Labor Lgth Anesthesia Del Locatn Provider FOB 12/12/22 Kaci 40 live - full term Female epidural [facility] Rex Willingham CNM Lm Delivery Date: 12/12/22 Last Updated by: Rayna Carbajal LPN see problem list for complications, and KW IAL Girl 40.1 HPI HPI HPI: LUIGI HANSON, is a 28 F who presents to the office today for assessment, milk supply concerns. History provided by the patient. ROS ROS Const Constitutional: Denies fever(s) or lethargy : Denies nipple discharge Skin Skin/Breast: Denies breast pain, breast skin changes or nipple discharge Details: on demand when with baby, has increased pumping to q3 hours and q3-4 hours at night d/t concers with decreasing milk supply, now pumping 2-3 oz and was pumping 3-4 oz, has some milk stored, concerned baby is not getting enough volume Exam Maternal Assessment Breast Assessment Bilateral Breasts: Full Nipple Assessment Bilateral Nipples: Everted Areolar Tissue Areolar Tissue: Pliable Assessment Baby Feeding History Is your baby latching onto the breast: Yes Number of Breast Feedings in 24 hours: on demand q2-3 hours Minutes per breast: First Breast: 5-10 Minutes per breast: Second Breast: 5-10 Supplements Supplement Type:: Expressed milk Frequency: when ont with baby Amount: 3-4 oz Breast Pumping Type of Breast Pump: Spectra, Medela Frequency: q 3 hours Amount: 2-4 oz Goals Breast Feeding Goals: Exclusive Exam Const General: comfortable and no acute distress Orientation: alert and oriented x3 Chest Breast inspection: normal inspection of the breasts Breast palpation: normal palpation of the breasts Resp Effort Inspection: normal respiratory effort Skin General: no rashes or lesions noted Psych Appearance: grossly normal Mental Status: mental status grossly normal Affect: normal affect Assessment and Plan Assessment and Plan (1) Hypogalactia: Plan: Reassurance provided on milk supply, baby growth stable at 33% as well. Slight dip in supply, patient started to pump again q3-4 hours at night (when baby not waking). Will monitor as follow up as needed. (2) Care and examination of lactating mother: Plan: Latch Score L - Latch Latch: Grasps breast, tongue down, lips flanged, rhymic sucking (2) A - Audible Swallowing Audible Swallowing: Spontaneous intermittent <24 hrs, spontaneous frequent >24 hrs (2) T - Type of Nipple Type of Nipple: Everted (after stimulation) (2) C - Comfort (Breast/Nipple) Comfort (Breast/Nipple): Soft and/or tender (2) H - Hold (Positioning) Hold (Positioning): No assist from staff, mother able to position/hold infant (2) Total Score Total Score:: 10 Observation Fee (more content not included)... Normal [facility] Cervical or vagninal specime n microscopic examination by cytology stain (reported asOrdered By: Karin Fleming on 05-28-2023 Cytology report Cyto stain Doc (Cvx/Vag) Comment . [facility] Comment on above: The Pap smear is a s creening test designed to aid in thedetection of premalignant and malignant conditions of theuterine cervix. It is not a diagnostic procedure andshould not be used as the sole means of detecting cervicalcancer. Both false-positive and false-negative reports dooccur. Laboratory - CytologyOrdered By: Karin Fleming on 05-28-2023 Parts Sales Associate Cyto stain Nom (Cvx/Vag) [ID] Comment . [facility] Comment on above: Vane mix, Water Pump Installer (ASCP) Laboratory - Miscellaneous t estsOrdered By: Karin Fleming on 05-28-2023 Service comment (Unsp spec) [Interp] . . [facility] No Panel InformationOrdered By: Karin Fleming on 05-28-2023 Human Papillomavirus Screen Comment . [facility] Comment on above: The HPV DNA reflex c elif were not met with this specimenresult therefore, no HPV testing was performed.Performed at: [address] [id number] Director: Dionna Angel MD, Phone: [phone] Thin prep Papanicolaou smear with manual screeningOrdered By: Karin Fleming on 05-28-2023 Thin prep Papanicolaou smear with manual screening Comment . [facility] Comment on above: NEGATIVE FOR INTRAEP ITHELIAL LESION OR MALIGNANCY. This liquid based Th inPrep(R) pap test was screened withthe use of an image guided system. Basophil percentageOrdered B y: Salma Willingham on 12-13-2022 WBC (Bld) [#/Vol] 15.6 10*3/uL 4.4-11.0 [facility] Blood erythrocytes count (nu mber/volume)Ordered By: Salma Willingham on 12-13-2022 RBC (Bld) [#/Vol] 3.58 10*6/uL 4.2-5.4 [facility] Blood hemoglobin measurement (mass/volume)Ordered By: Salma Willingham on 12-13-2022 Hemoglobin (Bld) [Mass/Vol] 11.3 g/dL 12.0-15.0 [facility] Blood platelet mean volumeOr dered By: Salma Willingham on 12-13-2022 Platelet mean volume (Bld) [Entitic vol] 10.5 fL 6.2-12.0 [facility] Determination of erythrocyte mean corpuscular volume (MCV)Ordered By: Salma Willingham on 12-13-2022 MCV (RBC) [Entitic vol] 95.5 fL 81-99 [facility] Hematocrit Auto (Bld) [Volum e fraction]Ordered By: Salma Willingham on 12-13-2022 Hematocrit (Bld) [Volume fraction] 34.2 % 37-47 [facility] Laboratory - Hematology and Cell countsOrdered By: Salma Willingham on 12-13-2022 Erythrocyte distribution width (RBC) [Entitic vol] 43.8 fL 35.1-43.9 [facility] Erythrocyte distribution width (RBC) [Ratio] 12.7 % 11.6-14.6 [facility] MCH (RBC) [Entitic mass] 31.6 pg 27.0-32.0 [facility] MCHC Auto (RBC) [Mass/Vol]Or dered By: Salma Willingham on 12-13-2022 MCHC (RBC) [Mass/Vol] 33.0 g/dL 32-36 [facility] Platelets bldOrdered By: Rex Willingham on 12-13-2022 Platelets (Bld) [#/Vol] 223 10*3/uL 150-450 [facility] Absolute lymphocyte countOrd ered By: Larissa Smith on 12-12-2022 Lymphocytes Auto (Unsp spec) [#/Vol] 2.12 10*3/uL 0.83-4.51 [facility] Basophil percentageOrdered B y: Larissa Smith on 12-12-2022 Basophils/100 WBC (Bld) 0.4 % 0-1 [facility] Eosinophils/100 WBC (Bld) 0.6 % 0-5 [facility] Neutrophils (Bld) [#/Vol] 8.3 10*3/uL 2.0-7.7 [facility] Neutrophils/100 WBC (Bld) 72.5 % 47-70 [facility] Blood lymphocytes/100 leukoc ytesOrdered By: Larissa Smith on 12-12-2022 Lymphocytes/100 WBC (Bld) 18.6 % 19-41 [facility] Blood monocytes/100 leukocyt esOrdered By: Larissa Smith on 12-12-2022 Monocytes/100 WBC (Bld) 7.1 % 0-10 [facility] Laboratory - Hematology and Cell countsOrdered By: Larissa Smith on 12-12-2022 Immature granulocytes/100 WBC (Bld) 0.800 % 0.0-0.9 [facility] Comment on above: IG% - Immature Granu locytes (promyelocytes, myelocytes and metamyelocytes) > 1% indicates that a LEFT SHIFT is Present. Nucleated RBC/100 WBC (Bld) [Ratio] 0 % 0-5 [facility] No Panel InformationOrdered By: Larissa Smith on 12-12-2022 Vaginal Amniotic Fluid Detection Positive Negative [facility] Comment on above: Amniotic fluid prese nt indicates rupture of Membranes. RESULTS CALLED TO [facility] 12/12/22 0547 Kalpesh Carballo.REPORT READ BACK BY SAME. Serum Treponema species anti body detectionOrdered By: Larissa Smith on 12-12-2022 Treponema sp Ab Ql (S) Non-Reactive [facility] Laboratory - Chemistry and C hemistry - challengeon 12-06-2022 Glucose Ql (U) Negative [facility] Laboratory - Urinalysison Protein Ql (U) Negative [facility] Laboratory - Chemistry and C hemistry - challengeon 11-27-2022 Glucose Ql (U) Negative [facility] Laboratory - Urinalysison Protein Ql (U) Negative [facility] Laboratory - Chemistry and C hemistry - challengeon 11-20-2022 Glucose Ql (U) Negative [facility] Laboratory - Urinalysison Protein Ql (U) Negative [facility] Laboratory - Chemistry and C hemistry - challengeon 11-13-2022 Glucose Ql (U) Negative [facility] Laboratory - Urinalysison Protein Ql (U) Negative [facility] No Panel InformationOrdered By: Joyce Parry on 11-13-2022 Group B Streptococcus Culture Group B Beta Streptococcus is not isolated. [facility] Laboratory - Chemistry and C hemistry - challengeon 10-30-2022 Glucose Ql (U) Negative [facility] Laboratory - Urinalysison Protein Ql (U) Negative [facility] Laboratory - Chemistry and C hemistry - challengeon 10-20-2022 Glucose Ql (U) Negative [facility] Laboratory - Urinalysison Protein Ql (U) Negative [facility] Laboratory - Chemistry and C hemistry - challengeon 10-04-2022 Glucose Ql (U) Negative [facility] Laboratory - Urinalysison Protein Ql (U) Negative [facility] Absolute lymphocyte countOrd ered By: Marce Gregorio on 09-18-2022 Lymphocytes Auto (Unsp spec) [#/Vol] 1.88 10*3/uL 0.83-4.51 [facility] Basophil percentageOrdered B y: Marce Gregorio on 09-18-2022 Basophils/100 WBC (Bld) 0.4 % 0-1 [facility] Eosinophils/100 WBC (Bld) 0.4 % 0-5 [facility] Neutrophils (Bld) [#/Vol] 8.5 10*3/uL 2.0-7.7 [facility] Neutrophils/100 WBC (Bld) 76.1 % 47-70 [facility] WBC (Bld) [#/Vol] 11.2 10*3/uL 4.4-11.0 [facility] Blood erythrocytes count (nu mber/volume)Ordered By: Marce Gregorio on 09-18-2022 RBC (Bld) [#/Vol] 3.76 10*6/uL 4.2-5.4 [facility] Blood hemoglobin measurement (mass/volume)Ordered By: Marce Gregorio on 09-18-2022 Hemoglobin (Bld) [Mass/Vol] 12.2 g/dL 12.0-15.0 [facility] Blood lymphocytes/100 leukoc ytesOrdered By: Marce Gregorio on 09-18-2022 Lymphocytes/100 WBC (Bld) 16.8 % 19-41 [facility] Blood monocytes/100 leukocyt esOrdered By: Marce Gregorio on 09-18-2022 Monocytes/100 WBC (Bld) 5.9 % 0-10 [facility] Blood platelet mean volumeOr dered By: Marce Gregorio on 09-18-2022 Platelet mean volume (Bld) [Entitic vol] 10.0 fL 6.2-12.0 [facility] Determination of erythrocyte mean corpuscular volume (MCV)Ordered By: Marce Gregoiro on 09-18-2022 MCV (RBC) [Entitic vol] 95.2 fL 81-99 [facility] Gestational diabetes screen 1-hour screen with 50g oral glucose loadOrdered By: Joyce Parry on 09-18-2022 Glucose 1 Hr post 50 g glucose PO [Mass/Vol] 91 mg/dL 70-140 [facility] HIV 1 and HIV-2 antibody ass ay with HIV-1 p24 antigen detectionOrdered By: Marce Gregorio on 09-18-2022 HIV 1+2 Ab+HIV1 p24 Ag IA Ql Non-Reactive Nonreactive [facility] Hematocrit Auto (Bld) [Volum e fraction]Ordered By: Marce Gregorio on 09-18-2022 Hematocrit (Bld) [Volume fraction] 35.8 % 37-47 [facility] Laboratory - Chemistry and C hemistry - challengeon 09-18-2022 Glucose Ql (U) Negative [facility] Laboratory - Hematology and Cell countsOrdered By: Marce Gregorio on 09-18-2022 Erythrocyte distribution width (RBC) [Entitic vol] 42.5 fL 35.1-43.9 [facility] Erythrocyte distribution width (RBC) [Ratio] 12.2 % 11.6-14.6 [facility] Immature granulocytes/100 WBC (Bld) 0.400 % 0.0-0.9 [facility] Comment on above: IG% - Immature Granu locytes (promyelocytes, myelocytes and metamyelocytes) > 1% indicates that a LEFT SHIFT is Present. MCH (RBC) [Entitic mass] 32.4 pg 27.0-32.0 [facility] Nucleated RBC/100 WBC (Bld) [Ratio] 0 % 0-5 [facility] Laboratory - Urinalysison Protein Ql (U) Negative [facility] MCHC Auto (RBC) [Mass/Vol]Or dered By: Marce Gregorio on 09-18-2022 MCHC (RBC) [Mass/Vol] 34.1 g/dL 32-36 [facility] Platelets bldOrdered By: Lam Gregorio on 09-18-2022 Platelets (Bld) [#/Vol] 242 10*3/uL 150-450 [facility] Serum Treponema species anti body detectionOrdered By: Marce Gregorio on 09-18-2022 Treponema sp Ab Ql (S) Non-Reactive [facility] Laboratory - Chemistry and C hemistry - challengeon 08-25-2022 Glucose Ql (U) Negative [facility] Laboratory - Urinalysison Protein Ql (U) Negative [facility] Laboratory - Chemistry and C hemistry - challengeon 07-26-2022 Glucose Ql (U) Negative [facility] Laboratory - Urinalysison Protein Ql (U) Negative [facility] Laboratory - Chemistry and C hemistry - challengeon 06-26-2022 Glucose Ql (U) Negative [facility] Laboratory - Urinalysison Protein Ql (U) Negative [facility] Absolute lymphocyte countOrd ered By: Joyce Parry on 05-29-2022 Lymphocytes Auto (Unsp spec) [#/Vol] 2.19 10*3/uL 0.83-4.51 [facility] Basophil percentageOrdered B y: Joyce Parry on 05-29-2022 Basophils/100 WBC (Bld) 0.4 % 0-1 [facility] Eosinophils/100 WBC (Bld) 0.8 % 0-5 [facility] Neutrophils (Bld) [#/Vol] 6.7 10*3/uL 2.0-7.7 [facility] Neutrophils/100 WBC (Bld) 70.3 % 47-70 [facility] WBC (Bld) [#/Vol] 9.6 10*3/uL 4.4-11.0 [facility] Blood erythrocytes count (nu mber/volume)Ordered By: Joyce Parry on 05-29-2022 RBC (Bld) [#/Vol] 4.21 10*6/uL 4.2-5.4 [facility] Blood hemoglobin measurement (mass/volume)Ordered By: Joyce Parry on 05-29-2022 Hemoglobin (Bld) [Mass/Vol] 13.1 g/dL 12.0-15.0 [facility] Blood lymphocytes/100 leukoc ytesOrdered By: Joyce Parry on 05-29-2022 Lymphocytes/100 WBC (Bld) 22.8 % 19-41 [facility] Blood monocytes/100 leukocyt esOrdered By: Joyce Parry on 05-29-2022 Monocytes/100 WBC (Bld) 5.5 % 0-10 [facility] Blood platelet mean volumeOr dered By: Joyce Parry on 05-29-2022 Platelet mean volume (Bld) [Entitic vol] 9.7 fL 6.2-12.0 [facility] Determination of erythrocyte mean corpuscular volume (MCV)Ordered By: Joyce Parry on 05-29-2022 MCV (RBC) [Entitic vol] 92.9 fL 81-99 [facility] HIV 1 and HIV-2 antibody ass ay with HIV-1 p24 antigen detectionOrdered By: Joyce Parry on 05-29-2022 HIV 1+2 Ab+HIV1 p24 Ag IA Ql Non-Reactive Nonreactive [facility] Hematocrit Auto (Bld) [Volum e fraction]Ordered By: Joyce Parry on 05-29-2022 Hematocrit (Bld) [Volume fraction] 39.1 % 37-47 [facility] Laboratory - Chemistry and C hemistry - challengeon 05-29-2022 Glucose Ql (U) Negative [facility] Laboratory - Hematology and Cell countsOrdered By: Joyce Parry on 05-29-2022 Erythrocyte distribution width (RBC) [Entitic vol] 39.7 fL 35.1-43.9 [facility] Erythrocyte distribution width (RBC) [Ratio] 11.7 % 11.6-14.6 [facility] Immature granulocytes/100 WBC (Bld) 0.200 % 0.0-0.9 [facility] Comment on above: IG% - Immature Granu locytes (promyelocytes, myelocytes and metamyelocytes) > 1% indicates that a LEFT SHIFT is Present. MCH (RBC) [Entitic mass] 31.1 pg 27.0-32.0 [facility] Nucleated RBC/100 WBC (Bld) [Ratio] 0 % 0-5 [facility] Laboratory - Urinalysison Protein Ql (U) Negative [facility] MCHC Auto (RBC) [Mass/Vol]Or dered By: Joyce Parry on 05-29-2022 MCHC (RBC) [Mass/Vol] 33.5 g/dL 32-36 [facility] No Panel InformationOrdered By: Joyce Parry on 05-29-2022 Hepatitis B Surface Antigen Non-Reactive Nonreactive [facility] Hepatitis C Antibody Non-Reactive Nonreactive [facility] Comment on above: Non Reactive: < 0.8 Equivocal: >/= 0.8 to < 1.0 Reactive: >/= 1.0The CDC recommends that a reactive/equivocal HCV antibody result be followed up by the HCV Nucleic Acid Amplificationtest (941845) Miscellaneous Test Comment MAILED SPECIMEN [facility] Rubella IgG Antibody Equiv Nonreactive [facility] Comment on above: Antibody Results Int erpretation of Immune Status Non Reactive Presumed Non-Immune Equivocal Equivocal Reactive Presumed Immune Platelets bldOrdered By: Td Parry on 05-29-2022 Platelets (Bld) [#/Vol] 251 10*3/uL 150-450 [facility] Serum Treponema species anti body detectionOrdered By: Joyce Parry on 05-29-2022 Treponema sp Ab Ql (S) Non-Reactive [facility] Culture, urineOrdered By: Dr Brice Parry on 05-06-2022 Bacteria identified Cx Nom (U) Positive [facility] Chlamydia trachomatis rRNA d etection by probe and target amplification methodOrdered By: Dr. Parry on 05-04-2022 C. trachomatis rRNA JULIUS+probe Ql (Unsp spec) Negative Negative [facility] Laboratory - Microbiology an d Antimicrobial susceptibilityOrdered By: Dr. Parry on 05-04-2022 N. gonorrhoeae DNA JULIUS+probe Ql (Unsp spec) Negative Negative [facility] Comment on above: Performed at: =[address] [id number] Director: Dionna Angel MD, Phone: [phone] LMPon 12-05-2021 Last menstrual period start date 06Oct2021 [employer] Work Phone: Laboratory - Cytologyon 11-13 Cytology report Cyto stain.thin prep Doc (Cvx/Vag) [employer] Work Phone: EMERGENCY ROOM CLERK - Office Visiton 11-13 EMERGENCY ROOM CLERK - Office Visit Diagnoses/Problems Assessed Encounter for Papanicolaou smear of cervix (V76.2) (Z12.4) Women's annual routine gynecological examination (V72.31) (Z01.419) Orders PAP MATH INTERVENTIONIST, Cytology; Status:In Progress - Specimen/Data Collected; Done: 05Dec2021 Last Menstrual Period (LMP): : 10/06/2021 PAP - Site : CERVICAL Cytology Order : ThinPrep PAP, Screening, HPV Reflex - Include Genotyping Follow-up visit in 12 months Outpatient Follow-up Status: Hold For - Scheduling Requested for: 05Dec2021 Provider Impressions 1) annual Exam-Cervical,colon and breast cancer screening guidelines reviewed. CBE benign. Colon cancer screening is up to date. Pap obtained today, will get records from LEEP in April and other provider. Reviewed HPV vaccine and guidelines, pt already got. Discussed safe sex practices. Discussed diet and exercise. Reviewed bone health, namely exercise with vitamin D/calcium. Reviewed fertility goals, timed sex for goal of baby. Reviewed hereditary cancer screening. Discussed that patient is not at increased risk. All questions answered. Chief Complaint PT IS HERE TODAY FOR HER ANNUAL EXAM. LAST PAP WAS 09/22/2019; ASCUS, HPV NEG. HAS NO CONCERNS. DOES A SELF BREAST CHECK. LMP: 10/06/2021 History of Present [id number] [facility]. Patient will be recruited for few years and recently had a LEEP earlier this year per another MATH INTERVENTIONIST provider. Patient was told for 6-month follow-up. Patient here for annual. Patient does occasional self breast exams no lumps bumps masses. Patient off of control is not going to do start taking vitamin shortly. Patient starting to expand her family. Patient was wearing physical activity. Patient is no other acute concerns Review of Systems Constitutional: No fevers, chills Eye:no vision changes Respiratory: no SOB Cardiovascular: no chest pain Breast: No lump/mass or discharge Gastrointestinal: No nausea, vomiting, diarrhea, constipation, abdominal pain Genitourinary:no dysuria Gynecology: See HPI Endocrine: No heat or cold intolerance Musculoskeletal: No decreased ROM Skin:No rash Neurologic: No numbness tingling Psychiatric: No anxiety, depression All other: all other systems reviewed and negative for complaint Active Problems Problems control counseling (V25.09) (Z30.09) Contraception management (V25.9) (Z30.9) Encounter for Papanicolaou smear of cervix (V76.2) (Z12.4) Fatigue (780.79) (R53.83) Heart palpitations (785.1) (R00.2) 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) (N87.0) Women's annual routine gynecological examination (V72.31) (Z01.419) Past Medical History Problems History of Papanicolaou smear (V45.89) (Z98.890) 09/22/2019: ASC-US, HPV negative 09/26/2016 NEG PAP, 03/22/2018 LGSIL History of Menstruation Onset age 12 years History of Menstruation Onset age 12 years History of Pap test, as part of routine gynecological examination (V76.2) (Z01.419) 2019 ASCUS HPVNEG 03/22/2018: LGSIL 09/26/2016: Negative Surgical History Problems History of Cervical loop electrosurgical excision 04/2021 History of Colposcopy 04/12/2018: Cervical Biopsy @ 6 O'clock- Mild dysplasia (FILIBERTO I) History of Egan tooth extraction 2013 History of Egan tooth extraction 2013 Family History Mother No pertinent family history Father Family history of atrial fibrillation (V17.49) (Z82.49) Grandparent Family history of dementia (V17.2) (Z81.8) Aunt Family history of dementia (V17.2) (Z81.8) Social History Problems Daily caffeine consumption Denies alcohol consumption (V49.89) (Z78.9) No illicit drug use Non-smoker (V49.89) (Z78.9) Non-smoker (V49.89) (Z78.9) Sexually active Sexually active Allergies Medication Sulfa Drugs Recorded By: Karin Beyer; 09/22/2019 9:02:47 AM Current Meds Medication NameInstruction Multi Vitamin TABS Vitals Vital Signs Recorded: 05Dec2021 11:29AM [id number] Ztrejxbsg34 Height5 ft 4 in Nkmxxo154 lb 4 oz BMI Obgwfdaqpb87.76 kg/m2 BSA Calculated1.7 [id number] Physical Exam General: None acute distress Eye: Intraocular movements are intact HEENT: Normocephalic Cardiovascular: Regular rate rhythm Respiratory: Lungs are clear to auscultation, respirations are nonlabored Breast: No masses no tenderness no discharge no adenopathy or skin changes Gastrointestinal: Soft nontender nondistended normal bowel sounds Gynecology: External genitalia within normal limits for age. Urethral meatus normal bladder nontender. Vagina without discharge. No vaginal bleeding. Nulliparous cervix with evidence of a small leep. No lesions. No CMT. Uterus mobile midline nontender. No levator ani tenderness. No adnexal tenderness. No adnexal masses Musculoskeletal: Normal range of motion Skin: Warm and dry Neurologic: Alert and oriented x3 Psychiatric: Cooperative appropriate mood and affect. Signatures Electronically sig (more content not included)... Normal [employer] Echocardiogramon 10-07-2021 Echocardiography [facility] nter [address] [place] [address] [phone], TRANSTHORACIC ECHOCARDIOGRAM REPORT Patient Name: LUIGI HANSON Reading Physician: [id number] Rohit Heard MD Study Date: 10/07/2021 Referring Physician: [id number] MONTESINOS MRN/PID: [id number] PCP: Accession/Order#: [id number] Department Location: [facility] Echo Lab Date of : 1995 Fellow: Gender: F Nurse: Kristan Joseph RN Admit Date: Interventional Physiatrist: Shiva Lucas [facility] Admission Status: Outpatient Additional Staff: Height: 162.56 cm CC Report to: Weight: 63.50 kg Study Type: Echocardiogram BSA: 1.68 m2 Blood Pressure: 137 /85 mmHg Diagnosis/ICD: R00.2-Palpitations Indication: Procedure/CPT: Echo Complete w Full Doppler-[id number] Study Detail: The following Echo studies were performed: 2D, M-Mode, Doppler and color flow. Agitated saline used as a contrast agent for intraseptal flow evaluation. PHYSICIAN INTERPRETATION: Left Ventricle: Left ventricular systolic function is normal, with an estimated ejection fraction of 55-60%. There are no regional wall motion abnormalities. The left ventricular cavity size is normal. Spectral Doppler shows a normal pattern of left ventricular diastolic filling. Left Atrium: The left atrium is normal in size. A bubble study using agitated saline was performed. Bubble study is negative. Right Ventricle: The right ventricle is normal in size. There is normal right ventricular global systolic function. Right Atrium: The right atrium is normal in size. Aortic Valve: The aortic valve is trileaflet. There is no evidence of aortic valve regurgitation. The peak instantaneous gradient of the aortic valve is 8.3 mmHg. The mean gradient of the aortic valve is 5.0 mmHg. Mitral Valve: The mitral valve is normal in structure. There is trace mitral valve regurgitation. Tricuspid Valve: The tricuspid valve is structurally normal. There is trace tricuspid regurgitation. Pulmonic Valve: The pulmonic valve is structurally normal. There is trace pulmonic valve regurgitation. Pericardium: There is no pericardial effusion noted. Aorta: The aortic root is normal. Systemic Veins: The inferior vena cava appears to be of normal size. There is IVC inspiratory collapse greater than 50%. CONCLUSIONS: 1. Left ventricular systolic function is normal with a 55-60% estimated ejection fraction. QUANTITATIVE DATA SUMMARY: 2D MEASUREMENTS: Normal Ranges: Ao Root d: 2.60 cm (2.0-3.7cm) LAs: 2.90 cm (2.7-4.0cm) IVSd: 0.87 cm (0.6-1.1cm) LVPWd: 0.72 cm (0.6-1.1cm) LVIDd: 4.18 cm (3.9-5.9cm) LVIDs: 2.62 cm LV Mass Index: 59.1 g/m2 LV % FS 37.3 % LA VOLUME: Normal Ranges: LA Vol A4C: 26.3 ml (22+/-6mL/m2) LA Vol A2C: 21.3 ml LA Vol BP: 25.0 ml LA Vol Index A4C: 15.6ml/m2 LA Vol Index A2C: 12.7 ml/m2 LA Vol Index BP: 14.8 ml/m2 LA Area A4C: 11.9 cm2 LA Area A2C: 11.3 cm2 LA Major [place] A4C: 4.6 cm LA [place] A2C: 5.1 cm LA Volume Index: 15.2 ml/m2 LA Vol A4C: 25.6 ml LA Vol A2C: 21.3 ml LV SYSTOLIC FUNCTION BY 2D PLANIMETRY (MOD): Normal Ranges: EF-A4C View: 59.8 % (>55%) EF-A2C View: 73.2 % EF-Biplane: 67.3 % LV DIASTOLIC FUNCTION: Normal Ranges: MV Peak E: 1.14 m/s (0.7-1.2 m/s) MV Peak A: 0.43 m/s (0.42-0.7 m/s) E/A Ratio: 2.67 (1.0-2.2) MV lateral e' 0.13 m/s MV medial e' 0.11 m/s MITRAL VALVE: Normal Ranges: MV DT: 264 msec (150-240msec) AORTIC VALVE: Normal Ranges: AoV Vmax: 1.44 m/s (<1.7m/s) AoV Peak P.3 mmHg (<20mmHg) AoV Mean P.0 mmHg (1.7-11.5mmHg) LVOT Max Issa: 1.22 m/s (<1.1m/s) AoV VTI: 29.50 cm (18-25cm) LVOT VTI: 25.20 cm LVOT Diameter: 1.70 cm (1.8-2.4cm) AoV Area, VTI: 1.94 cm2 (2.5-5.5cm2) AoV Area,Vmax: 1.92 cm2 (2.5-4.5cm2) AoV Dimensionless Index: 0.85 RIGHT VENTRICLE: RV 1 3.53 cm RV 2 2.34 cm RV 3 6.59 cm TAPSE: 26.9 mm RV s' 0.14 m/s PULMONIC VALVE: Normal Ranges: PV Accel Time: 180 msec (>120ms) PV Max Issa: 0.8 m/s (0.6-0.9m/s) PV Max P.6 mmHg [id number] Rohit Heard MD Electronically signed on 10/07/2021 at 11:01:44 AM Final [facility] Narrative Note - Outpatient- CPS for bubble studyon 10-07-2021 Narrative Note - Outpatient-CPS for bubble study Narrative Note: Discipline/ClinicCPS for bubble study Description Called to CPS to administer bubbles. Started a 22g IV in the LAC. IV flushed easily. Administered bubble test times 2 as principal technical specialist instructed. Once test completed IV flushed with NS then dc'ed with angiocath intact and dressing to site. Patient tolerated without complaint. Electronic Signatures: Kristan Joseph (ELINOR) (Signed 07-Oct-2021 10:37) Authored: Narrative Note - OP Last Updated: 07-Oct-2021 10:37 by Kristan Joseph) [facility] CBCon 09-30-2021 Erythrocyte distribution width (RBC) [Ratio] 12.6 % Normal 11.5 - 14.5 [facility] Comment on above: Performed By: #### C BC #### [address] [address] Hematocrit (Bld) [Volume fraction] 40.4 % Normal 36.0 - 46.0 [facility] Comment on above: Performed By: #### C BC #### [address] [address] Hemoglobin (Bld) [Mass/Vol] 13.1 g/dL Normal 12.0 - 16.0 [facility] Comment on above: Performed By: #### C BC #### [address] [address] MCHC (RBC) [Mass/Vol] 32.4 g/dL Normal 32.0 - 36.0 [facility] Comment on above: Performed By: #### C BC #### [address] [address] MCV (RBC) [Entitic vol] 94 fL Normal 80 - 100 [facility] Comment on above: Performed By: #### C BC #### [address] [address] Platelets (Bld) [#/Vol] 270 10*3/uL Normal 150 - 450 [facility] Comment on above: Performed By: #### C BC #### [address] [address] RBC 4.32 x10E12/L Normal 4.00 - 5.20 [facility] Comment on above: Performed By: #### C BC #### [address] [address] WBC (Bld) [#/Vol] 6.0 10*3/uL Normal 4.4 - 11.3 [facility] Comment on above: Performed By: #### C BC #### [address] [address] COMPREHENSIVE PANELon 2021 Albumin [Mass/Vol] 4.1 g/dL Normal 3.4 - 5.0 [facility] Comment on above: Performed By: #### C MP #### [address] [address] ALP [Catalytic activity/Vol] 35 U/L Normal 33 - 110 [facility] Comment on above: Performed By: #### C MP #### [address] [address] ALT [Catalytic activity/Vol] 17 U/L Normal 7 - 45 [facility] Comment on above: Result Comment: Tonia ents treated with Sulfasalazine may generate falsely decreased results for ALT. Performed By: #### C MP #### [address] [address] Anion gap [Moles/Vol] 11 mmol/L Normal 10 - 20 [facility] Comment on above: Performed By: #### C MP #### [address] [address] AST [Catalytic activity/Vol] 19 U/L Normal 9 - 39 [facility] Comment on above: Performed By: #### C MP #### [address] [address] Bilirubin [Mass/Vol] 0.4 mg/dL Normal 0.0 - 1.2 [facility] Comment on above: Performed By: #### C MP #### [address] [address] Calcium [Mass/Vol] 9.5 mg/dL Normal 8.6 - 10.3 [facility] Comment on above: Performed By: #### C MP #### [address] [address] Chloride [Moles/Vol] 105 mmol/L Normal 98 - 107 [facility] Comment on above: Performed By: #### C MP #### [address] [address] Creatinine [Mass/Vol] 0.70 mg/dL Normal 0.50 - 1.05 [facility] Comment on above: Performed By: #### C MP #### [address] [address] eGFR FEMALE >90 Normal >90 [facility] Comment on above: Result Comment: CALC ULATIONS OF ESTIMATED GFR ARE PERFORMED USING THE 2020 CKD-EPI STUDY REFIT EQUATION WITHOUT THE RACE VARIABLE FOR THE IDMS-TRACEABLE CREATININE METHODS. [email or web address] Performed By: #### C MP #### [address] [address] Glucose [Mass/Vol] 86 mg/dL Normal 74 - 99 [facility] Comment on above: Performed By: #### C MP #### [address] [address] HCO3 (Bld) [Moles/Vol] 24 mmol/L Normal 21 - 32 [facility] Comment on above: Performed By: #### C MP #### [address] [address] Potassium [Moles/Vol] 4.1 mmol/L Normal 3.5 - 5.3 [facility] Comment on above: Performed By: #### C MP #### [address] [address] Protein [Mass/Vol] 7.3 g/dL Normal 6.4 - 8.2 [facility] Comment on above: Performed By: #### C MP #### [address] [address] Sodium [Moles/Vol] 136 mmol/L Normal 136 - 145 [facility] Comment on above: Performed By: #### C MP #### [address] [address] Urea nitrogen [Mass/Vol] 11 mg/dL Normal 6 - 23 [facility] Comment on above: Performed By: #### C MP #### [address] [address] FERRITINon 09-30-2021 FERRITIN 91 ug/L Normal 8 - 150 [facility] Comment on above: Performed By: #### F ERRI #### [address] [address] TSHon 09-30-2021 TSH Qn 1.15 m[IU]/L Normal 0.44 - 3.98 [facility] Comment on above: Result Comment: TSH testing is performed using different testing methodology at [facility] than at other [facility]. Direct result comparisons should only be made within the same method. Performed By: #### T SH2 #### [facility] [address] [place] [address] Office Visit (Primary Care T xt/Forms)on 09-26-2021 Follow-up visit Diagnoses/Problems Assessed Heart palpitations (785.1) (R00.2) Fatigue (780.79) (R53.83) Orders Fatigue Complete Blood Count; Status:Active; Requested for:[id number]; Comprehensive Metabolic Panel; Status:Active; Requested for:85Met0449; Ferritin, Serum; Status:Active; Requested for:94Itc7783; TSH - Thyroid Stimulating Hormone, Serum; Status:Active; Requested for:18Pec6425; Heart palpitations Echocardiogram; Status:Hold For - Scheduling; Requested for:54Sdw8463; Holter Monitor 3-14 Days; Status:Hold For - Scheduling; Requested for:23Ofm5730; Provider Impressions Provider Impressions Free Text Note Form: CBC, CMP, TSH ferritin level Check echocardiogram and 14-day Holter monitor Time Code: 1. Preparation for patient's visit (reviewing chart, current medical record, outside health provider records, previous history, exam, test, procedure, and medications) 2. Yrhk-ey-Wguj encounter obtaining history from patient/family/caregiver s; performing evaluation and exam; ordering tests or procedures; referring and communicating with other health care providers; counseling and education of the patient/family/caregiver s; independently interpreting results (tests, labs, procedures, imaging) and communicating and explaining results to the patient/family/caregiver s 3. Coordination of care; preparing and printing discharge instructions and any educational material for the patient/family/caregiver s. Documenting clinical information into the electronic medical record 4. Reviewing OARRS as needed MDM: 1) complexity: more than 1 stable chronic condition addressed or 1 acute illness addressed. 2) Data: tests interpreted and/or ordered, took independent history or records reviewed. 3) Risk: moderate risk due to nature of medical conditions/comorbidity or medications ordered or surgical or procedural referral Chief Complaint ESTABLISH CARE, POSSIBLE HIGH BP History of Present Illness Luigi comes to the office to establish as new patient. Cervical CA Screening: thru marketing operations intern. Last PAP in 2019, On OCP's. + LEEP AND scheduled for a f/u PAP in November Nonsmoker, No alcohol. Trying to starting exercising by lifting and 3-4d/w for 60 fxhx reviewed today; da dx w/ AF @ 64Y, g'father w/ CV disease; @ age 74Y no labs recently no hospitalizations in last yr c/o heart racing approximately 3-4 times per week and lasts for 15 minutes she feels it is worse around the time of her menses. And it feels like there is a heartbeat in her left ear. She previously was seen for this same complaint of ringing and pulsation in the left ear and indicates that she had a brain MRI which was normal. Triggered by exercise/caffeine/postpr andial (niles. a diet heavy in CHO). Relieving factors: Relaxing will make it stop on it's own. Menses described as light and infrequent since she has been on oral control. Infrequent use of multivitamins. Caffeine: 2 lg cups of coffee in the mornings. Palpitations have not worsened over time. BP- Normotensive in office today Review of Systems Constitutional: feeling tired. ENT: ringing in ears . Intermittent ringing/pulsation L ear. Cardiovascular: palpitations, but no chest pain, no lower extremity edema and no shortness of breath. Respiratory: no cough and no wheezing. Active Problems Problems control counseling (V25.09) (Z30.09) Contraception management (V25.9) (Z30.9) Contraception management (V25.9) (Z30.9) Encounter for IUD removal (V25.12) (Z30.432) Encounter for Papanicolaou smear of cervix (V76.2) (Z12.4) Encounter for Papanicolaou smear of cervix (V76.2) (Z12.4) 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) (N87.0) Women's annual routine gynecological examination (V72.31) (Z01.419) Women's annual routine gynecological examination (V72.31) (Z01.419) Past Medical History Problems History of Papanicolaou smear (V45.89) (Z98.890) History of Menstruation History of Menstruation History of Pap test, as part of routine gynecological examination (V76.2) (Z01.419) Surgical History Problems History of Colposcopy History of Egan tooth extraction History of Egan tooth extraction Family History Mother No pertinent family history Father Family history of atrial fibrillation (V17.49) (Z82.49) Grandparent Family history of dementia (V17.2) (Z81.8) Aunt Family history of dementia (V17.2) (Z81.8) Social History Problems Daily caffeine consumption Denies alcohol consumption (V49.89) (Z78.9) No illicit drug use Non-smoker (V49.89) (Z78.9) Non-smoker (V49.89) (Z78.9) Sexually active Sexually active Current Meds Medication NameInstruction Norethin-Eth Estradiol-Fe 0.8-25 MG-MCG Oral Tablet ChewableTake 1 tablet daily Allergies Medication Sulfa Drugs Vitals Vital Signs Recorded: 30Vdh1611 03:35PM Heart Rate: 83 Systolic: 110 Diastolic: 72 Height: 5 ft 4 in Weight: 140 lb 3 oz BMI Calculated: 24.06 kg/m2 BSA Calculated: 1.68 Tobac (more content not included)... Normal [employer] Tobacco Screening.on 022 Adult depression screening assessment No [facility] Work Phone: Fall risk assessment a) No falls within the last year [employer] [facility] Work Phone: Tobacco use status CP b) No [employer] [facility] Work Phone: POCT SARS-COV-2 AND INFLUENZ A A/Bon 07-20-2021 INFLUENZA A Negative Normal NEGATIVE [facility] Comment on above: Performed By: #### P [id number] ####[facility] [address] [place] [address] INFLUENZA B Negative Normal NEGATIVE [facility] Comment on above: Performed By: #### P [id number] ####[facility] [address] [place] [address] SARS-CoV-2 (COVID-19) RNA JULIUS+probe Ql (Unsp spec) Normal [facility] Comment on above: Result Comment: CLIA Number: [id number] Method: ARMINDA XXS Release to patient->Immediate Fully Vaccinated?->Yes Prior COVID Infection?->No Indication for rapid screen->POC Symptomatic First test->No Employed in healthcare->No Symptomatic as defined by CDC->Yes Hospitalized->No ICU->No Resident in a congregate care setting (including nursing homes, residential care for people with intellectual and developmental disabilities, psychiatric treatment facilities, group homes, board and care homes, homeless residential, foster care, etc)->No ->No Performed By: #### P [id number] ####[facility] [address] [place] [address] SARS-CoV-2 (COVID-19) RNA JULIUS+probe Ql (Unsp spec) Positive Abnormal NEGATIVE [facility] Comment on above: Performed By: #### P [id number] ####[facility] [address] [place] [address] SPECIMEN TO PATHOLOGYon SPECIMEN TO PATHOLOGY LAB AP CASE REPORT [facility] Surgical Pathology Case: [id number] Authorizing Provider: Rolanda Gabriel DO Collected: 05/18/2021 Ordering Location: [facility] Received: 05/19/2021 02:41 PM [facility] Pathologist: Van Driscoll MD Specimen: Cervical, Cone biopsy with suture at 12:00 LAB AP CLINICAL DIAGNOSIS Requisition diagnosis: Moderate cervical dysplasia PATHOLOGY REPORT FINAL DIAGNOSIS NARRATIVE CERVIX, LEEP: -- HIGH-GRADE SQUAMOUS INTRAEPITHELIAL LESION (FILIBERTO II; P16+). -- ECTO AND ENDOCERVICAL MARGINS ARE NEGATIVE. -- NEGATIVE FOR MALIGNANCY. AP DIAGNOSIS NOTE Sections show high-grade squamous intraepithelial lesion (FILIBERTO II) involving transformation zone mucosa, best appreciated on block A4 (9-12 o'clock). Immunohistochemistry for p16 shows diffuse block-like positivity on high-grade dysplasia, supportive of the diagnosis. Inked margins do not appear to be involved by high-grade dysplasia. There is no no evidence of an invasive tumor. LAB AP GROSS DESCRIPTION Received in formalin labeled Luigi Hansno - suture 12 o'clock is one oriented cervical cone specimen with a suture designating 12 o'clock. The specimen is echevarria-vazquez in color and measures 2.0 cm from 12 o'clock to 6 o'clock, 2.3 cm from 3 o'clock to 9 o'clock and excised to a depth of 0.5 cm. There is a 0.7 cm cervical os. The endocervix is inked blue, the surgical margin is inked black. The specimen is radially sectioned with the 12 o'clock to 3 o'clock sections submitted in cassette A1, the 3 o'clock to 6 o'clock sections in cassette A2, the 6 o'clock to 9 o'clock sections in cassette A3 and the 9 o'clock to 12 o'clock sections in cassette A4. S/S: (4) TE. JS/tab DOCUMENTATION PDF Normal [facility] Comment on above: Performed By: #### L [id number] #### [facility] PAP SMEAR GYNECOLOGIC CYTOLO [facility] 03-30-2021 PAP SMEAR GYNECOLOGIC CYTOLOGY LAB AP CASE REPORT [facility] Gynecologic Cytology Case: [id number] Authorizing Provider: Rolanda Gabriel DO Collected: 03/30/2021 04:39 PM Ordering Location: [facility] Received: 04/01/2021 12:11 PM [facility] First Screen: IVANIA Faustin (ASCP) Pathologist: Suzanna Wright MD Specimen: Pap Smear, ThinPrep W/Imaging, Cervical KHN LAB AP MATH INTERVENTIONIST SPECIMEN ADEQUACY Unsatisfactory, scant cellularity Blood present. LAB AP MATH INTERVENTIONIST PRIMARY INTERPRETATION UNSATISFACTORY SPECIMEN. The slide shows predominantly blood. There is insufficient cellularity for adequate evaluation. This specimen has been sent to [facility] for HPV testing. HPV REFLEX? HPV always (co-test) LAB AP ADDENDUM 1 RPS gynecological ThinPrep specimen accession number [id number] was referred to [facility] for Human Papillomavirus (HPV), Rui high risk/16/18 testing. [facility] specimen number [id number] was reported on 04/12/2021 with the following results: HPV Other High Risk Types (31, 33, 35, 39, 45, 51, 52, 56, 58, 59, 66, 68): Negative. HPV 16: Negative. HPV18: Negative. Complete report available through [facility]. Addendum electronically signed by IVANIA Collado (ASCP) on 04/13/2021 at 11:03 AM DOCUMENTATION PDF Normal [facility] Comment on above: Performed By: #### L [id number] #### [facility] [address] [id number] [facility] POCT URINE PREGNANCYon 03-30 Beta HCG ( test) Ql (U) Normal [facility] Comment on above: Result Comment: Rele ase to patient->Immediate HCG ( test) Ql (U) Negative [facility] SPECIMEN TO PATHOLOGYon 03-15 SPECIMEN TO PATHOLOGY LAB AP CASE REPORT [facility] Surgical Pathology Case: [id number] Authorizing Provider: Rolanda Gabriel DO Collected: 03/30/2021 Ordering Location: [facility] Received: 04/01/2021 11:09 AM [facility] Pathologist: Van Driscoll MD Specimens: A) - Endocervical, ECC B) - Cervical, 3 o'clock CX C) - Cervical, 12 o'clock CX LAB AP CLINICAL DIAGNOSIS Requisition diagnosis: Moderate cervical dysplasia PATHOLOGY REPORT FINAL DIAGNOSIS NARRATIVE A. ENDOCERVIX, CURETTINGS: -- STRIPS OF ENDOCERVICAL GLANDULAR EPITHELIUM. -- NO DYSPLASIA OR MALIGNANCY IDENTIFIED. B. CERVIX, 3 O'CLOCK, BIOPSY: -- ENDOCERVICAL MUCOSA WITH CHRONIC INFLAMMATION. -- NO DYSPLASIA OR MALIGNANCY IDENTIFIED. C. CERVIX, 12 O'CLOCK, BIOPSY: -- HIGH-GRADE SQUAMOUS INTRAEPITHELIAL LESION (FILIBERTO II). -- TRANSFORMATION ZONE MUCOSA IS PRESENT. -- NEGATIVE FOR MALIGNANCY. AP DIAGNOSIS NOTE Microscopic slides were examined. LAB AP GROSS DESCRIPTION A. Received in formalin labeled Luigi Hanson - ECC are multiple vazquez-brown tissue fragments with mucus that measure 2.0 x 1.0 x up to 0.2 cm. S/S: (1) TE. AL/tab B. Received in formalin labeled Luigi Hanson - 3 o'clock CX is one echevarria-vazquez tissue fragment that measures 0.3 cm. The presumed margin is inked black. The specimen is submitted in toto in one cassette. S/S: (1) TE. AL/tab C. Received in formalin labeled Luigi Hanson - 12 o'clock CX is one echevarria-vazquez tissue fragment measuring 0.6 cm x 0.4 x up to 0.2 cm. The margin is inked black. The specimen is bisected and submitted into one cassette. S/S: (1) TE. AL/tab DOCUMENTATION PDF Normal [facility] Comment on above: Performed By: #### L [id number] #### [facility] [address] SPECIMEN TO PATHOLOGYon SPECIMEN TO PATHOLOGY LAB AP CASE REPORT [facility] Surgical Pathology Case: [id number] Authorizing Provider: Rolanda Gabriel DO Collected: 09/15/2020 Ordering Location: [facility] Received: 09/17/2020 10:51 AM Clinical Laboratory Pathologist: Van Driscoll MD Specimens: A) - Cervical, Ectocervix- 11 o'clock B) - Cervical, Ectocervix- 8 o'clock C) - Endocervical, ECC LAB AP CLINICAL DIAGNOSIS Requisition diagnosis: Atypical squamous cells cannot exclude high grade squamous intraepithelial lesion on cytologic smear of cervix (ASC-H) CORRELATE WITH PAP Yes PATHOLOGY REPORT FINAL DIAGNOSIS NARRATIVE A. CERVIX, 11 O'CLOCK, BIOPSY: -- ENDOCERVICAL MUCOSA WITH MICROGLANDULAR ADENOSIS AND FOCAL SQUAMOUS METAPLASIA. -- NO DYSPLASIA OR MALIGNANCY IDENTIFIED. B. CERVIX, 8 O'CLOCK, BIOPSY: -- HIGH-GRADE SQUAMOUS INTRAEPITHELIAL LESION (FILIBERTO II; P16+). -- TRANSFORMATION ZONE MUCOSA IS PRESENT. -- NEGATIVE FOR MALIGNANCY. C. ENDOCERVIX, CURETTINGS: -- ENDOCERVICAL GLANDULAR EPITHELIUM WITH MICROGLANDULAR HYPERPLASIA. -- NO DYSPLASIA OR MALIGNANCY IDENTIFIED. ELATION COMMENT The previous cytology ([id number]) is reviewed. It shows atypical squamous cells diagnosed as atypical squamous cells, cannot exclude high grade squamous intraepithelial lesion. of undetermined significance and noted to be positive for HPV. The dysplastic cells on the current biopsy correlate with the previous cytology. LAB AP DIAGNOSIS NOTE A,C. Microscopic slides were examined. B. Immunohistochemistry for p16 shows block-like positivity on the dysplastic squamous epithelium. The endocervical component shows microglandular hyperplasia and chronic inflammation. There is no evidence of an invasive tumor. These findings support the above diagnosis LAB AP GROSS DESCRIPTION Luigi Jansen A. Ectocervix 11 o'clock: Received in formalin labeled Luigi Jansen - 11 o'clock CxBx one echevarria-vazquez tissue fragment measuring 0.4 x 0.2 up to 0.1 cm. The specimen is inked black and submitted in toto in one cassette. S/S: (1) TE. B. Ectocervix 8 o'clock: Received in formalin, labeled Luigi Jansen - 8 o'clock CxBx are multiple vazquez-brown tissue fragments and mucus aggregating to 2.0 x 1.0 up to 0.2 cm. S/S: (1) TE. C. ECC: Received in formalin labeled Luigi Jansen - ECC is one cervical brush containing multiple vazquez-brown tissue fragments and mucus aggregating to 2.5 x 1.5 up to 0.2 cm. S/S: (1) TE. AL/gfl DOCUMENTATION PDF Normal [facility] Comment on above: Performed By: #### L AB8 ####[facility] [id number] [facility] PAP SMEAR GYNECOLOGIC CYTOLO GYon 08-18-2020 PAP SMEAR GYNECOLOGIC CYTOLOGY LAB AP CASE REPORT [facility] Gynecologic Cytology Case: [id number] Authorizing Provider: Rolanda Gabriel DO Collected: 08/18/2020 02:35 PM Ordering Location: [facility] Received: 08/21/2020 09:12 AM Clinical Laboratory First Screen: IVANIA Coronado (ASCP) Pathologist: Jt Astorga MD Specimen: Pap Smear, ThinPrep W/Imaging, Cervical KHN LAB AP MATH INTERVENTIONIST SPECIMEN ADEQUACY Satisfactory for evaluation, endocervical component present LAB AP MATH INTERVENTIONIST PRIMARY INTERPRETATION ATYPICAL SQUAMOUS CELLS, CANNOT EXCLUDE HIGH GRADE SQUAMOUS INTRAEPITHELIAL LESION. REFLEX? ASCUS reflex to HPV testing LAB AP [facility] CLINICAL HISTORY Other condition Z01.419- ICD10 DOCUMENTATION PDF Normal [facility] Comment on above: Performed By: #### L [id number] #### [facility] [address] [place] [address] [facility] Glu Fastingon 04-20-2018 Glucose mass conc 86 mg/dL Normal 70-99 [facility] Comment on above: Performed By: #### 2 [id number] #### [facility] [employer] [address] [place] [address] Lipid Profileon 04-20-2018 Cholesterol in HDL mass conc 61 mg/dL Normal >=45 [facility] Comment on above: Performed By: #### 3 [id number] #### [facility] [employer] [address] [place] [address] Cholesterol in LDL mass conc 96 mg/dL Normal 0-130 [facility] Comment on above: Result Comment: <100 OPTIMAL 100-129 NEAR / ABOVE OPTIMAL 130-159 BORDERLINE HIGH 160-189 HIGH >190 VERY HIGH CALC LDL NOT VALID WHEN TRIGLYCERIDE IS >400 MG/DL Performed By: #### 3 [id number] #### [facility] [employer] [address] [place] [address] Cholesterol in VLDL mass conc 10 mg/dL Normal 0-40 [facility] Comment on above: Performed By: #### 3 [id number] #### [facility] [employer] [facility] [place] [address] Cholesterol mass conc 167 mg/dL Normal 0-189 [facility] Comment on above: Result Comment: TOTA L CHOLEESTEROL: <200 NORMAL 200 - 239 BORDERLINE HIGH >240 HIGH Performed By: #### 3 [id number] #### [facility] [employer] [address] [place] [address] Triglyceride mass conc 52 mg/dL Normal 0-149 [facility] Comment on above: Result Comment: AGE DESIRABLE BORDERLINE HIGH 91 D - 9 Y 0 - 74 75 - 99 > 100 10 - 19 Y 0 - 89 90 - 129 > 130 20 -24 Y 0 - 114 115 - 149 > 150 > 25 0 - 149 150 - 199 200 - 499 Performed By: #### 3 [id number] #### [facility] [employer] [address] [place] [address] IGP W/hpv Rfx [id number] 03-28 Diagnosis: See Ref Lab Report Normal [facility] Comment on above: Order Comment: LMP: IUD Performed By: #### 1 [id number] #### [facility] [employer] [place] [address] Pathology ([facility])on 09-12-2016 Pathology ([facility]) FINAL GYNECOLOGIC CYTOLOGY [id number] ADEQUACYSatisfactory for Evaluation. Endocervical cells/transformation zone componentpresent.GENERAL CATEGORIZATIONNegative for Intraepithelial Lesion or MalignancyDESCRIPTIVE DIAGNOSISReactive cellular changes associated inflammation and repair.CLINICAL HISTORYComment: No LMP provided.SPECIMEN(A) SCREENING CERVICAL/ENDOCERVICAL LIQUID-BASED PAPPerformed at [facility], [address] [place] [id number] by: ANJU GONZALEZ Water Pump Installer Signed Out by: CARLOS MCNEIL M.D. Reported: 09/19/2016 Normal [facility] Comment on above: Performed By: #### G YN ####[facility] [address] [place] [address] Vital Signs Date Time Vital Sign Value Performing Clinician Facility 07-19-2023 13:23-0400 Body height 162.6 cm [facility] [employer] WALL SHEAR OPERATOR-ASSESSMENT EXPERT Work Phone: [facility] 07-19-2023 13:23-0400 Body mass index (BMI) [Ratio] 23.76 kg/m2 [facility] [employer]ALL SHEAR OPERATOR-ASSESSMENT EXPERT Work Phone: [facility] 07-19-2023 13:23-0400 Body weight 62.78 kg [facility] [employer] WALL SHEAR OPERATOR-ASSESSMENT EXPERT Work Phone: [facility] 07-19-2023 13:23-0400 Diastolic blood pressure 80 mm[Hg] [facility] [employer] WALL SHEAR OPERATOR-ASSESSMENT EXPERT Work Phone: [facility] 07-19-2023 13:23-0400 Heart rate 60 /min [facility] [employer] WALL SHEAR OPERATOR-ASSESSMENT EXPERT Work Phone: [facility] 07-19-2023 13:23-0400 SaO2% (BldA) [Mass fraction] 99 % Shivani Montesinos LONG WALL SHEAR OPERATOR-ASSESSMENT EXPERT Work Phone: [facility] 07-19-2023 13:23-0400 Systolic blood pressure 118 mm[Hg] Shivani Montesinos LONG WALL SHEAR OPERATOR-ASSESSMENT EXPERT Work Phone: [facility] 05-28-2023 13:05-0400 Body height 162.56 cm [employer] SHIVANI MONTESINOS Work Phone: [facility] 05-28-2023 13:04-0400 Body mass index (BMI) [Ratio] 25.1 kg/m2 [employer]C SHIVANI MONTESINOS Work Phone: [facility] 05-28-2023 13:04-0400 Body weight 66.39 kg [employer] K[employer]-C SHIVANI MONTESINOS Work Phone: [facility] 05-28-2023 13:04-0400 Diastolic blood pressure 82 mm[Hg] [employer]C SHIVANI MONTESINOS Work Phone: [facility] 05-28-2023 13:04-0400 Systolic blood pressure 132 mm[Hg] [employer]C SHIVANI MONTESINOS Work Phone: [facility] 12-14-2022 08:00-0400 Body temperature 97.4 [degF] No Primary Care Physician [facility] 12-14-2022 08:00-0400 Diastolic blood pressure 71 mm[Hg] No Primary Care Physician [facility] 12-14-2022 08:00-0400 Heart rate 75 /min No Primary Care Physician [facility] 12-14-2022 08:00-0400 Respiratory rate 14 /min No Primary Care Physician [facility] 12-14-2022 08:00-0400 Systolic blood pressure 106 mm[Hg] No Primary Care Physician [facility] 12-14-2022 03:23-0400 SaO2% (BldA) [Mass fraction] 98 % No Primary Care Physician [facility] 12-12-2022 06:33-0400 Body height 162.56 cm No Primary Care Physician [facility] 12-12-2022 06:33-0400 Body mass index (BMI) [Ratio] 29.5 kg/m2 No Primary Care Physician [facility] 12-12-2022 06:33-0400 Body weight 78.19 kg No Primary Care Physician [facility] 12-11-2022 16:06-0400 Body mass index (BMI) [Ratio] 29.7 kg/m2 No Primary Care Physician [facility] 12-11-2022 16:06-0400 Body weight 78.52 kg No Primary Care Physician [facility] 12-11-2022 16:06-0400 Diastolic blood pressure 74 mm[Hg] No Primary Care Physician [facility] 12-11-2022 16:06-0400 Systolic blood pressure 114 mm[Hg] No Primary Care Physician [facility] 12-06-2022 16:06-0400 Body mass index (BMI) [Ratio] 29.3 kg/m2 No Primary Care Physician [facility] 12-06-2022 16:06-0400 Body weight 77.56 kg No Primary Care Physician [facility] 12-06-2022 16:06-0400 Diastolic blood pressure 75 mm[Hg] No Primary Care Physician [facility] 12-06-2022 16:06-0400 Systolic blood pressure 125 mm[Hg] No Primary Care Physician [facility] 11-27-2022 16:06-0400 Body mass index (BMI) [Ratio] 29.5 kg/m2 No Primary Care Physician [facility] 11-27-2022 16:06-0400 Body weight 78.01 kg No Primary Care Physician [facility] 11-27-2022 16:06-0400 Diastolic blood pressure 75 mm[Hg] No Primary Care Physician [facility] 11-27-2022 16:06-0400 Systolic blood pressure 117 mm[Hg] No Primary Care Physician [facility] 11-20-2022 15:23-0400 Body mass index (BMI) [Ratio] 29 kg/m2 No Primary Care Physician [facility] 11-20-2022 15:23-0400 Body weight 76.88 kg No Primary Care Physician [facility] 11-20-2022 15:23-0400 Diastolic blood pressure 73 mm[Hg] No Primary Care Physician [facility] 11-20-2022 15:23-0400 Systolic blood pressure 107 mm[Hg] No Primary Care Physician [facility] 11-13-2022 16:25-0400 Diastolic blood pressure 70 mm[Hg] No Primary Care Physician [facility] 11-13-2022 16:25-0400 Systolic blood pressure 102 mm[Hg] No Primary Care Physician [facility] 11-13-2022 16:06-0400 Body mass index (BMI) [Ratio] 28.3 kg/m2 No Primary Care Physician [facility] 11-13-2022 16:06-0400 Body weight 75.01 kg No Primary Care Physician [facility] 10-30-2022 16:07-0400 Body mass index (BMI) [Ratio] 28.3 kg/m2 No Primary Care Physician [facility] 10-30-2022 16:07-0400 Body weight 74.89 kg No Primary Care Physician [facility] 10-30-2022 16:07-0400 Diastolic blood pressure 69 mm[Hg] No Primary Care Physician [facility] 10-30-2022 16:07-0400 Systolic blood pressure 100 mm[Hg] No Primary Care Physician [facility] 10-20-2022 14:40-0400 Body mass index (BMI) [Ratio] 27.8 kg/m2 No Primary Care Physician [facility] 10-20-2022 14:40-0400 Body weight 73.7 kg No Primary Care Physician [facility] 10-20-2022 14:40-0400 Diastolic blood pressure 66 mm[Hg] No Primary Care Physician [facility] 10-20-2022 14:40-0400 Systolic blood pressure 104 mm[Hg] No Primary Care Physician [facility] 10-04-2022 16:10-0400 Body mass index (BMI) [Ratio] 27.6 kg/m2 No Primary Care Physician [facility] 10-04-2022 16:10-0400 Body weight 73.02 kg No Primary Care Physician [facility] 10-04-2022 16:10-0400 Diastolic blood pressure 69 mm[Hg] No Primary Care Physician [facility] 10-04-2022 16:10-0400 Systolic blood pressure 108 mm[Hg] No Primary Care Physician [facility] 09-18-2022 15:42-0400 Body height 162.56 cm No Primary Care Physician [facility] 09-18-2022 15:42-0400 Body mass index (BMI) [Ratio] 26.8 kg/m2 No Primary Care Physician [facility] 09-18-2022 15:42-0400 Body weight 70.93 kg No Primary Care Physician [facility] 09-18-2022 15:42-0400 Diastolic blood pressure 64 mm[Hg] No Primary Care Physician [facility] 09-18-2022 15:42-0400 Respiratory rate 16 /min No Primary Care Physician [facility] 09-18-2022 15:42-0400 Systolic blood pressure 104 mm[Hg] No Primary Care Physician [facility] 08-25-2022 15:37-0400 Body mass index (BMI) [Ratio] 26.2 kg/m2 No Primary Care Physician [facility] 08-25-2022 15:37-0400 Body weight 69.11 kg No Primary Care Physician [facility] 08-25-2022 15:37-0400 Diastolic blood pressure 73 mm[Hg] No Primary Care Physician [facility] 08-25-2022 15:37-0400 Systolic blood pressure 108 mm[Hg] No Primary Care Physician [facility] 07-26-2022 15:19-0400 Body mass index (BMI) [Ratio] 25.6 kg/m2 No Primary Care Physician [facility] 07-26-2022 15:19-0400 Body weight 67.75 kg No Primary Care Physician [facility] 06-26-2022 15:12-0400 Body mass index (BMI) [Ratio] 24.5 kg/m2 No Primary Care Physician [facility] 06-26-2022 15:12-0400 Body weight 64.97 kg No Primary Care Physician [facility] 06-26-2022 15:12-0400 Diastolic blood pressure 72 mm[Hg] No Primary Care Physician [facility] 06-26-2022 15:12-0400 Systolic blood pressure 106 mm[Hg] No Primary Care Physician [facility] 05-29-2022 13:18-0400 Body mass index (BMI) [Ratio] 24.7 kg/m2 No Primary Care Physician [facility] 05-29-2022 13:18-0400 Body weight 65.37 kg No Primary Care Physician [facility] 05-29-2022 13:18-0400 Diastolic blood pressure 62 mm[Hg] No Primary Care Physician [facility] 05-29-2022 13:18-0400 Systolic blood pressure 110 mm[Hg] No Primary Care Physician [facility] 05-04-2022 09:34-0400 Body height 162.56 cm No Primary Care Physician [facility] 05-04-2022 09:34-0400 Body mass index (BMI) [Ratio] 25.2 kg/m2 No Primary Care Physician [facility] 05-04-2022 09:34-0400 Body weight 66.84 kg No Primary Care Physician [facility] 05-04-2022 09:34-0400 Diastolic blood pressure 78 mm[Hg] No Primary Care Physician [facility] 05-04-2022 09:34-0400 Systolic blood pressure 118 mm[Hg] No Primary Care Physician [facility] 12-05-2021 11:29-0400 Body height 162.56 cm Shivani Lio Social Work Phone: [facility] Work Phone: 12-05-2021 11:29-0400 Body mass index (BMI) [Ratio] 24.76 kg/m2 [employer] Work Phone: [employer] Work Phone: 12-05-2021 11:29-0400 Body surface area Derived from formula 1.7 m2 Shivani Lio Social Work Phone: [employer] Work Phone: 12-05-2021 11:29-0400 Body weight 65.43 kg [employer] Work Phone: [employer] [address] Work Phone: 12-05-2021 11:29-0400 Diastolic blood pressure 72 mm[Hg] Shivani Lio Social Work Phone: [employer] [address] Work Phone: 12-05-2021 11:29-0400 Systolic blood pressure 100 mm[Hg] Shivani Lio Social Work Phone: [employer] Work Phone: 09-26-2021 15:35-0400 Body height 162.56 cm Shivani Montesinos Work Phone: [facility] Work Phone: 09-26-2021 15:35-0400 Body mass index (BMI) [Ratio] 24.06 kg/m2 Shivani Montesinos Work Phone: [facility] Work Phone: 09-26-2021 15:35-0400 Body surface area Derived from formula 1.68 m2 Shivani Montesinos Work Phone: [facility] Work Phone: 09-26-2021 15:35-0400 Body weight 63.59 kg Shivani Montesinos Work Phone: [facility] Work Phone: 09-26-2021 15:35-0400 Diastolic blood pressure 72 mm[Hg] Shivani Montesinos Work Phone: [facility] Work Phone: 09-26-2021 15:35-0400 Heart rate 83 /min Shivani Montesinos Work Phone: [facility] Work Phone: 09-26-2021 15:35-0400 SaO2% (BldA) [Mass fraction] 99 % Shivani Montesinos Work Phone: [facility] Work Phone: 09-26-2021 15:35-0400 Systolic blood pressure 110 mm[Hg] Shivani Montesinos Work Phone: [facility] Work Phone: 12-12-2018 16:48-0400 BMI (Body Mass Index) 22.74 kg/m2 Neena Denny [address] Work Phone: 12-12-2018 16:48-0400 Body weight 60.1 kg Neena Denny [employer] [address] Work Phone: 12-12-2018 16:48-0400 BP Diastolic 76 mm[Hg] Neena Denny [facility] [address] Work Phone: 12-12-2018 16:48-0400 BP Systolic 112 mm[Hg] Neena Denny [facility] [address] Work Phone: 12-12-2018 16:48-0400 BSA (Body Surface Area) 1.64 m2 Neena Denny [facility] [address] Work Phone: 12-12-2018 16:48-0400 Height 162.56 cm Neena Denny [facility] [address] Work Phone: 04-23-2018 17:06-0400 BMI (Body Mass Index) 22.27 kg/m2 Neena Denny [facility] [address] Work Phone: 04-23-2018 17:06-0400 Body weight 59.9 kg Neena Denny [facility] [address] Work Phone: 04-23-2018 17:06-0400 BP Diastolic 68 mm[Hg] Neena Denny [facility] [address] Work Phone: 04-23-2018 17:06-0400 BP Systolic 115 mm[Hg] Neena [facility] [address] Work Phone: 04-23-2018 17:06-0400 BSA (Body Surface Area) 1.65 m2 Neena Denny [facility] [address] Work Phone: 04-23-2018 17:06-0400 Height 164 cm Neena Denny [facility] [address] Work Phone: Encounters Encounter Date Encounter Type Care Provider Facility Start: 06-03-2024 Encounter for gynecological examination (general) (routine) without abnormal findings Joyce Parry [facility] Start: 06-03-2024 End: 06-03-2024 ambulatory [facility] Facility:[facility] Start: 06-03-2024 End: 06-03-2024 ambulatory [facility] Facility:[facility] Start: 07-19-2023 End: 07-19-2023 Patient encounter status Shivani Montesinos [employer] W[employer] SHE[employer] OPERATOR-ASSESSMENT EXPERT Work Phone: [facility] Work Phone: Start: 07-19-2023 End: 07-19-2023 Periodic preventive med est patient 18-39 yrs Shivani Montesinos [employer] W[employer] SHEAR OPERATOR-ASSESSMENT EXPERT Work Phone: [facility] Comment on above: Wellness examination (Primary Dx); History of hemorrhoids Start: 07-19-2023 End: 07-19-2023 ambulatory [facility] Start: 06-30-2023 End: 06-30-2023 ambulatory [facility] Facility:[facility] Start: 05-28-2023 End: 05-28-2023 ambulatory [facility] Work Phone: [facility] Work Phone: Start: 05-28-2023 End: 05-28-2023 Patient encounter procedure [facility] SHIVANI [place] Work Phone: [facility] Work Phone: Start: 12-14-2022 Non-patient / Non-visit No Ene mustafa [place] [facility] Phys[facility] Start: 12-13-2022 Non-patient / Non-visit No Ene mustafa [place] [facility] Start: 12-12-2022 Non-patient / Non-visit No Ene mustafa [place] [facility] Phys[facility] Start: 12-12-2022 End: 12-14-2022 Evaluation and management of inpatient No Primary Care Physician [facility] Work Phone: Start: 12-11-2022 End: 12-11-2022 Patient encounter procedure No Primary Care Physician [facility] Work Phone: Start: 12-06-2022 End: 12-06-2022 Patient encounter procedure No Primary Care Physician [facility] Work Phone: Start: 11-27-2022 End: 11-27-2022 Patient encounter procedure No Primary Care Physician [facility] Work Phone: Start: 11-20-2022 End: 11-20-2022 Patient encounter procedure No Primary Care Physician [facility] Work Phone: Start: 11-14-2022 End: 11-14-2022 Patient encounter procedure No Primary Care Physician [facility]Outpatient [facility] Ultrasound Work Phone: Start: 11-13-2022 End: 11-13-2022 Patient encounter procedure No Primary Care Physician [facility]-Laboratory, Specimen Work Phone: Start: 11-13-2022 End: 11-13-2022 Patient encounter procedure No Primary Care Physician [facility] Work Phone: Start: 10-30-2022 End: 10-30-2022 Patient encounter procedure No Primary Care Physician [facility] Work Phone: Start: 10-20-2022 End: 10-20-2022 Patient encounter procedure No Primary Care Physician [facility] Work Phone: Start: 10-04-2022 End: 10-04-2022 Patient encounter procedure No Primary Care Physician [facility] Work Phone: Start: 09-18-2022 End: 09-18-2022 ambulatory No Primary Care Physician [facility] Work Phone: Start: 09-18-2022 End: 09-18-2022 Patient encounter procedure No Primary Care Physician [facility] Work Phone: Start: 08-25-2022 End: 08-25-2022 Patient encounter procedure No Primary Care Physician [facility] [place] [facility] Work Phone: Start: 07-26-2022 End: 07-26-2022 Patient encounter procedure No Primary Care Physician [facility] Work Phone: Start: 07-11-2022 End: 07-11-2022 ambulatory [employer] [facility] Start: 06-26-2022 End: 06-26-2022 Patient encounter procedure No Primary Care Physician [facility] [place] [facility] Work Phone: Start: 05-29-2022 End: 05-29-2022 Patient encounter procedure No Primary Care Physician [facility] Work Phone: Start: 05-04-2022 End: 05-04-2022 ambulatory No Primary Care Physician [facility] Work Phone: Start: 05-04-2022 End: 05-04-2022 Patient encounter procedure No Primary Care Physician [facility]-Laboratory, Specimen Start: 05-04-2022 End: 05-04-2022 Patient encounter procedure No Primary Care Physician [facility] Start: 12-13-2021 Chart Update Shivani pedro Work Phone: [facility] Work Phone: Start: 12-05-2021 Encounter for gynecological examination (general) (routine) without abnormal findings Dr. Neena Denny [facility] Start: 12-05-2021 Encounter for gynecological examination (general) (routine) without abnormal findings Dr. Neena Denny Facility:[facility] Start: 12-05-2021 Periodic preventive med est patient 18-39 yrs Shivani Montesinos Work Phone: [facility] Work Phone: Start: 12-05-[address] Neena Denny Fa cility:[facility] Start: 10-31-2021 ambulatory Ms. Shivani Montesinos Facility:[id number] Start: 10-07-2021 ambulatory Ms. Shivani Montesinos Facility:[id number] Start: 09-26-2021 Office outpatient ne w 45 minutes Shivani Montesinos Work Phone: -[employer] [facility] Work Phone: Start: 09-26-2021 ambulatory Ms. SHIVANI Long ity:[id number] Start: 04-23-2018 End: 04-24-2018 Patient encounter procedure Shannon Jeffery Facility:[facility] Start: 04-20-2018 End: 04-21-2018 Patient encounter procedure Akuaflorencio Treviño Facility:[facility] Start: 04-18-2018 End: 04-19-2018 Patient encounter procedure Akua Iyer Kamila Facility:[facility] Start: 04-12-2018 End: 04-13-2018 Patient encounter procedure Shannon Jeffery Facility:[facility] Start: 04-12-2018 End: 04-13-2018 Patient encounter procedure Shannon Jeffery Facility:[facility] Start: 04-02-2018 End: 04-03-2018 Patient encounter procedure Shannon Jeffery Facility:[facility] Start: 03-22-2018 End: 03-23-2018 Patient encounter procedure Shannon Jeffery Facility:[facility] Start: 03-22-2018 End: 03-23-2018 Patient encounter procedure Shannon Jeffery Facility:[facility] Start: 02-26-2018 End: 02-27-2018 Patient encounter procedure Shannon Jeffery Facility:[facility] Encounter for gynecological examination (general) (routine) without abnormal findings Shivani Montesinos Work Phone: -[employer] [facility] Work Phone: Comment on above: 03/22/2018: [id number]/ : Negative; 2020 ASCUS [id number]: [id number]: Negative; Patient encounter procedure Shivani Montesinos Work Phone: [facility] [facility] Work Phone: Procedures Date Procedure Procedure Detail Performing Clinician Start: 05-28-2023 Microscopic observat ion [Identifier] in Cervix by Cyto stain Shivani Montesinos [employer] WALL SHEAR OPERATOR-ASSESSMENT EXPERT Work Phone: Start: 11-14-2022 Ultrasound scan for growth No Primary Care Physician Start: 11-13-2022 Group B Streptococcu s Culture No Primary Care Physician Colposcopy Shivani Montesinos Work Phone: Comment on above: 04/12/2018: Cervical Biopsy @ 6 O'clock- Mild dysplasia (FILIBERTO I); Extraction of wisdom tooth B rett [place] Comment on above: 2013; Loop electrosurgical excision procedure of cervix Shivani Montesinos Work Phone: Comment on above: 04/2021; Urine culture No Primary Car e Physician Plan of Treatment Date Care Activity Detail Author Start: 2044 Zoster Vaccines (1 of 2) Zoster Vaccines (1 of 2) [facility] Start: 09-18-2032 DTaP/Tdap/Td Vaccines (8 - Td or Tdap) DTaP/Tdap/Td Vaccines (8 - Td or Tdap) [facility] Start: 05-27-2026 Screening for malignant neoplasm of cervix [facility] Start: 07-19-2024 Yearly Adult Physical Yearly Adult Physical [facility] Start: 10-14-2023 Influenza vaccination Influenza Vaccine (Season Ended) [facility] Start: 01-10-2023 Varicella vaccination Varicella Vaccines (1 of 2 - 13+ 2-dose series) [facility] Start: 12-14-2022 Patient discharge [facility] Start: 12-12-2022 End: 12-13-2022 [facility] Start: 12-12-2022 Administration of medication [facility] Start: 12-12-2022 Application of ice collar, cap or bag [facility] Start: 12-12-2022 Catheterization of vein [facility] Start: 12-12-2022 Introduction of urinary catheter [facility] Start: 12-12-2022 Measuring intake and output [facility] Start: 12-12-2022 Notification of physician [facility] Start: 12-12-2022 Procedure discontinued [facility] Start: 12-12-2022 Provision of activity privileges [facility] Start: 12-12-2022 Vital signs measurements [facility] Start: 12-12-2022 Admission procedure [facility] Start: 12-12-2022 Consultation [facility] Start: 12-06-2022 Patient encounter procedure ANNUAL, Provider: Andie Lockett, Status: Pen, Time: 11:[address] Work Phone: Start: 10-13-2022 COVID-19 Vaccine () COVID-19 Vaccine () [facility] Start: 12-05-2021 Patient encounter procedure ANNUAL, Provider: Neena Denny, Status: Pen, Time: 11:15 AM [facility] Work Phone: Start: 10-07-2021 EVENT LUCY, Provider: BRANDON DIAGNOSTIC THERAPISTAMY, Status: Pen, Time: 11:00 AM EVENT LUCY, Provider: BRANDON DIAGNOSTIC THERAPISTNITINITOR, Status: Pen, Time: 11:00 AM [facility] Work Phone: Start: 10-07-2021 ECHO, Provider: BRANDON HHVI ECHO 1,SMCECHO1, Status: Pen, Time: 10:00 AM ECHO, Provider: BRANDON HHVI ECHO 1,SMCECHO1, Status: Pen, Time: 10:00 AM [facility] Work Phone: Start: 2015 Screening for malignant neoplasm of cervix HPV/Cotest [facility] Start: 2012 Hepatitis C screening Hepatitis C Screening [facility] Start: 1994 HIV screening HIV Screening [facility] Start: 1994 Lipid panel Lipid Panel [facility] CBC W Auto Different ial panel - Blood [facility] Hepatitis B surface antigen measurement [facility] Hepatitis C antibody measurement [facility] HIV 1+2 Ab+HIV1 p24 Ag [Presence] in Serum or Plasma by Immunoassay [facility] Patient referral [facility] Work Phone: Rubella IgG measurement [facility] Treponema sp Ab [Pre sence] in Serum [facility] Immunizations Immunization Date Immunization Notes Care Provider Fa peter 12-13-2022 measles, mumps and rubella virus vaccine No Primary Care Physician [facility] 09-18-2022 tetanus toxoid, redu erin diphtheria toxoid, and acellular pertussis vaccine, adsorbed No Primary Care Physician [facility] 11-02-2021 Human Papillomavirus 9-valent vaccine [facility] Work Phone: [facility] Work Phone: 06-29-2021 Human Papillomavirus 9-valent vaccine [facility] Work Phone: [facility] Work Phone: 04-27-2021 Human Papillomavirus 9-valent vaccine [facility] Work Phone: [facility] Work Phone: 04-01-2012 meningococcal polysaccharide (groups A, C, Y and W-135) diphtheria toxoid conjugate vaccine (MCV4P) [facility] Work Phone: [facility] Work Phone: 09-01-2008 meningococcal polysaccharide (groups A, C, Y and W-135) diphtheria toxoid conjugate vaccine (MCV4P) [facility] Work Phone: [facility] Work Phone: 09-01-2008 tetanus toxoid, redu erin diphtheria toxoid, and acellular pertussis vaccine, adsorbed [facility] Work Phone: [facility] Work Phone: 08-24-1999 diphtheria, tetanus toxoids and acellular pertussis vaccine, unspecified formulation [facility] Work Phone: [facility] Work Phone: 08-24-1999 measles, mumps and rubella virus vaccine [facility] Work Phone: [facility] Work Phone: 08-24-1999 poliovirus vaccine, inactivated Shivani Montesinos LONG WALL SHEAR OPERATOR-ASSESSMENT EXPERT Work Phone: [facility] Work Phone: 11-28-1995 diphtheria, tetanus toxoids and acellular pertussis vaccine, unspecified formulation Shivani Montesinos LONG WALL SHEAR OPERATOR-ASSESSMENT EXPERT Work Phone: [facility] Work Phone: 06-06-1995 haemophilus influenz ae type b vaccine, conjugate unspecified formulation Shivani Montesinos LONG WALL SHEAR OPERATOR-ASSESSMENT EXPERT Work Phone: [facility] Work Phone: 06-06-1995 measles, mumps and rubella virus vaccine Shivani Montesinos LONG WALL SHEAR OPERATOR-ASSESSMENT EXPERT Work Phone: [facility] Work Phone: 1994 hepatitis B vaccine, pediatric or pediatric/adolescent dosage Shivani Montesinos LONG WALL SHEAR OPERATOR-ASSESSMENT EXPERT Work Phone: [facility] Work Phone: 1994 DTaP-Haemophilus influenzae type b conjugate vaccine Shivani Montesinos LONG WALL SHEAR OPERATOR-ASSESSMENT EXPERT Work Phone: [facility] Work Phone: 1994 trivalent poliovirus vaccine, live, oral Shivani Montesinos LONG WALL SHEAR OPERATOR-ASSESSMENT EXPERT Work Phone: [facility] Work Phone: 1994 DTaP-Haemophilus influenzae type b conjugate vaccine Shivani Montesinos LONG WALL SHEAR OPERATOR-ASSESSMENT EXPERT Work Phone: [facility] Work Phone: 1994 trivalent poliovirus vaccine, live, oral Shivani Montesinos LONG WALL SHEAR OPERATOR-ASSESSMENT EXPERT Work Phone: [facility] Work Phone: 1994 DTaP-Haemophilus influenzae type b conjugate vaccine Shivani Montesinos LONG WALL SHEAR OPERATOR-ASSESSMENT EXPERT Work Phone: [facility] Work Phone: 1994 hepatitis B vaccine, pediatric or pediatric/adolescent dosage Shivani Montesinos LONG WALL SHEAR OPERATOR-ASSESSMENT EXPERT Work Phone: [facility] Work Phone: 1994 trivalent poliovirus vaccine, live, oral hSivani Montesinos APRN-ASSESSMENT EXPERT Work Phone: [facility] Work Phone: 1994 hepatitis B vaccine, pediatric or pediatric/adolescent dosage Shivani Montesinos APRN-ASSESSMENT EXPERT Work Phone: [facility] Work Phone: Payers Date Payer Category Payer Self-pay 2020 Private Health Insurance [facility] Rewarding Return [facility] [id number] 2020-Present [id number] [place] [address] [id number] 2020 Private Health Insurance [id number] 1994 Unknown [id number]. 1069 1994 Unknown [id number] [id number]. 1069 1994 Unknown [id number] [id number]. 1069 1994 Unknown [id number] [id number]. 356 1994 Unknown [id number] [id number]. 356 1994 Unknown [id number] [id number]. 356 1994 Unknown [id number] [id number]. 479 1994 Unknown [id number] [id number]. 1244 Unknown [employer] Unknown CYNTHIA [id number] Unknown [id number] [id number]. 462 Unknown [id number] [id number]. 462 Unknown [id number] [id number]. 462 Social History Date Type Detail Facility Assertion Unknown if ever smoked Women [address] Work Phone: Start: 07-19-2023 Non-smoker [facility]-smoker [facility] Work Phone: Start: 05-04-2022 End: 05-28-2023 Tobacco smoking status NHIS Unknown if ever smoked [facility] Start: 1995 Sex Assigned At Female [facility] Start: 07-19-2023 Tobacco smoking stat us NHIS Never smoked tobacco [facility] Work Phone: Start: 07-19-2023 Tobacco use and exposure Smokeless tobacco non-user [facility] Work Phone: Start: 07-19-2023 Alcoholic beverage intake Lifetime non-drinker (finding) [facility] Work Phone: Start: 07-19-2023 Tobacco use panel [facility] Work Phone: Start: 1995 Sex assigned at Not on file U [facility] Work Phone: Start: 07-09-2023 End: 07-19-2023 Exposure to SARS-CoV-2 (event) Not sure [facility] Goals Date Patient Goal Desired Activity /State Functional Status Date Assessment Result Facility NEGATED: Highlighted row Functional performance Functional status health issues are not documented Disease [address] Work Phone: Mental Status Date Assessment Result Facility NEGATED: Highlighted row Cognitive function [Interpretation] Cognitive status health issues are not documented Disease [address] Work Phone: Clinical Notes 08-18-2020 to 07-19-2023 Shivani Montesinos, LONG WALL SHEAR OPERATOR-ASSESSMENT EXPERT - 07/19/2023 1:20 PM EDTPatient Instructions Note Date & Type Note Facility 07-19-2023 History of Presen t illness Narrative Subjective Patient ID: Luigi Hanson is a 28 y.o. female who presents for Annual Exam and Hemorrhoids. Luigi comes to office for wellness exam today Had a baby end of November & continues with discomfort from intermittent hemorrhoids. Tried stool softeners & Prep H/witch franki wipes, high fiber foods. Drinking plenty of fluids. Has both internal & external hemorrhoids. Pain with passing bowel movement. +itching. Wipes will notices some blood (pink colored). No constipation, BM daily or sometimes twice a day. No abd pain/n/v. + 5 minutes were spent screening for depression using PHQ 2\PHQ-9 as documented in the chart. PHQ 2 score: 0 Review of Systems Constitutional: Negative for fatigue. Respiratory: Negative for cough, shortness of breath and wheezing. Cardiovascular: Negative for chest pain, palpitations and leg swelling. Gastrointestinal: Positive for blood in stool. Negative for abdominal pain. Neurological: Negative for dizziness and headaches. Psychiatric/Behavioral: Negative for sleep disturbance. Objective BP 118/80 Pulse 60 Ht 1.626 m (5' 4) Wt 62.8 kg (138 lb 6.4 oz) SpO2 99% Yes BMI 23.76 kg/m Physical Exam Vitals and nursing note reviewed. Constitutional: Appearance: Normal appearance. HENT: Head: Normocephalic. Cardiovascular: Rate and Rhythm: Normal rate and regular rhythm. Heart sounds: Normal heart sounds. Pulmonary: Effort: Pulmonary effort is normal. Breath sounds: Normal breath sounds. Abdominal: General: Abdomen is flat. Bowel sounds are decreased. Palpations: Abdomen is soft. Tenderness: There is no abdominal tenderness. Genitourinary: Rectum: No external hemorrhoid or internal hemorrhoid. Normal anal tone. Musculoskeletal: Cervical back: Normal range of motion. Skin: General: Skin is warm and dry. Neurological: General: No focal deficit present. Mental Status: She is alert and oriented to person, place, and time. Psychiatric: Mood and Affect: Mood normal. Thought Content: Thought content normal. Assessment/Plan Problem List Items Addressed This Visit ICD-10-CM Wellness examination - Primary Z00.00 History of hemorrhoids Z87.19 1. Wellness examination 2. History of hemorrhoids documented in this encounter [facility] Work Phone: 07-19-2023 Instructions PROMISE Olivarez - 07/19/2023 1:20 PM EDT You may try sitz bath's to help with your hemorrhoids when they flareup. I encouraged regular use of Metamucil or Benefiber to keep your bowels soft. Hemorrhoids can be aggravated by prolonged standing or sitting to try to avoid doing both of those. If these hemorrhoids continue to bother you please call the office and let us know and we will refer you to general surgery for further management documented in this encounter [facility] Work Phone: 05-28-2023 Note [facility] Pap Smear Specimen Adequacy May 28, 2023 2:14pm Comment . Satisfactory for evaluation. Endocervical and/or squamous metaplasticcells (endocervical component) are present. Comment on above: Satisfactory for mikie luation. Endocervical and/or squamous metaplasticcells (endocervical component) are present. 12-14-2022 Progress note Note Date/Time December 14, 2022 8:07am [facility] Medical Records Department [address] [place] [address] Progress Note - OBGYN 12/14/22 0806 MR#: [id number] Acct: [id number] Name: LUIGI HANSON Rep #:[id number] : 1995 27 From: Joyce downs MD PCP: RACHEL LUCIANO Status:ADM IN Location: VT587-2 Subjective Subjective Patient doing well without complaints. Tolerating PO. Ambulating and voiding without difficulty. feeding well. Denies chest pain, shortness of breath,calf pain/swelling, fevers, chills, lightheadedness. Objective Data Objective Data Vital Signs: Vital Signs Temp Pulse Resp BP Pulse Ox O2 Del Method 97.2 F L 70 15 124/72 H 98 Room Air 12/14/22 03:23 12/14/22 03:23 12/14/22 03:23 12/14/22 03:23 12/14/22 03:23 12/14/22 03:23 Oxygen Delivery Method Room Air Weight: 172 lb 6.4 oz Body Mass Index (BMI) 29.5 Intake & Output: Intake and Output for Last 24 Hours 12/12/22 12/13/22 12/14/22 23:59 23:59 23:59 Intake Total 3905 / 3905 250 / 250 Output Total 1000 / 1000 900 / 900 Balance 2905 / 2905 -650 / -650 Lab / Micro Data 12/13/22 21:00 Labs: Laboratory Results - last 24 hr 12/13/22 21:00: WBC 15.6 H, RBC 3.58 L, Hgb 11.3 L, Hct 34.2 L, MCV 95.5, MCH 31.6, MCHC 33.0, RDW Std Deviation 43.8, RDW Coeff of Marilou 12.7, Plt Count 223, MPV 10.5 ROS Constitutional Constitutional: Reports systems reviewed and no addt'l complaints, except as documented Cardiovascular Cardiovascular: Reports systems reviewed and no addt'l complaints, except as documented Respiratory/Chest Respiratory/Chest: Reports systems reviewed and no addt'l complaints, except as documented Gastrointestinal Gastrointestinal: Reports systems reviewed and no addt'l complaints, except as documented Physical Exam Const alert, oriented x3 and no apparent distress HEENT Head and Scalp: atraumatic Resp normal respiratory effort GI soft to palpation and non-tender Bimanual Exam - Vag & Uterus: uterus non-tender Uterus Palpation: uterus fundus firm (below Umbilicus) Assessment & Plan (1) Vaginal delivery: COMMENT: KW IAL 40.1 weeks PLAN: Plan routine pp care dc home 12/14/22 0807 <Electronically signed by Joyce Parry MD> Cosigner Signature (if applicable): CC: ~ Signed [facility] Work Phone: 1(206) 470-164511-01-2023 Progress note Author Marce Gregorio [facility] December 13, 2022 7:56am Note Date/Time December 13, 2022 7 :56am [facility] Medical Records Department [address] [place] [address] Progress Note - OBGYN 12/13/22 0755 MR#: [id number] Acct: [id number] Name: LUIGI HANSON Rep #:[id number] : 1995 27 From: Marce Gregorio SEAMLESS HOSIERY KNITTER SEAMLESS HOSIERY KNITTER-C PCP: SHIVANI MONTESINOS NP-Salty Status:ADM IN Location: FS788-6 Subjective Subjective Patient doing well without complaints. Tolerating PO. Ambulating and voiding without difficulty. Feeding well. Denies chest pain, shortness of breath, calf pain/swelling, fevers, chills, lightheadedness. Objective Data Objective Data Vital Signs: Vital Signs Temp Pulse Resp BP Pulse Ox O2 Del Method 97.2 F L 76 16 103/57 L 96 Room Air 12/13/22 03:21 12/13/22 03:21 12/13/22 03:21 12/13/22 03:21 12/13/22 03:21 12/13/22 03:21 Oxygen Delivery Method Room Air Weight: 172 lb 6.4 oz Body Mass Index (BMI) 29.5 Intake & Output: Intake and Output for Last 24 Hours 12/11/22 12/12/22 12/13/22 23:59 23:59 23:59 Intake Total 3905 / 3905 250 / 250 Output Total 1000 / 1000 900 / 900 Balance 2905 / 2905 -650 / -650 Lab / Micro Data 12/12/22 06:45 Labs: Laboratory Results - last 24 hr 12/12/22 06:45: Syphilis Total Ab Non-reactive Physical Exam Const alert and oriented x3 HEENT normocephalic Eyes PERRL Neck full ROM Resp normal respiratory effort GI soft to palpation GI Narrative: FF below U Assessment & Plan (1) Vaginal delivery: COMMENT: KW IAL 40.1 weeks (2) Rubella non-immune status, antepartum: COMMENT: MMR pp PLAN: Plan s/p PPD # 1 1. routine post delivery care 2. breast feeding- support given 3. rh positive 4. rubella nonimmune 12/13/22 0756 <Electronically signed by Marce RAMOS> Cosigner Signature (if applicable): CC: ~ Signed [facility] Work Phone: 1(636) 675-616410-31-2023 Discharge summary Author Salma Willingham [facility] December 12, 2022 9:45pm Note Date/Time December 12, 2022 9 :45pm [facility] Medical Records Department [address] [place] [address] Instructions for Home/Discharge Instructions 12/12/222144 MR#: [id number] Acct: [id number] Name: LUIGI HANSON Rep #:[id number] : 1995 27 From: Salma Willingham CNM PCP: RACHEL LUCIANO Status:ADM IN Discharge Instructions Diet Discharge Diet: No restrictions Activity Discharge Activity: Return to Normal Activity May resume sexual activity in: 6-8 weeks Dressing / Incision Call your doctor if you observe: Fever of 101 or Higher, Coldness, Increased Pain, Numbness or Tingling, Change in Color, Inability to urinate, Inability to have a bowel movement, Using more than 1 pad per hour, Shortness of breath, Dizziness, Fainting spells, Swelling in the ankles, Chest pain, Increased palpitations (irregular heartbeat), Calf discomfort and Uncontrolled pain Follow Up Care Please Follow Up With: Salma Willingham CNM When: Please call the office to schedule your follow up appointment in 6 weeks. If you had high blood pressure please call to schedule an appointment in 2 weeks. Test Results: Test results from this visit will be discussed in further detail at your follow- up appointment, if applicable. Discharge Plan Admission Admit Date/Time: 12/12/22 05:49 Attending Provider: Larissa Smith Primary Care Provider: SHIVANI MONTESINOS Discharge Orders/Prescriptions Prescriptions: No Action PNV-DHA 27 mg iron-1 mg -300 mg capsule PO magnesium 250 mg tablet 250 mg PO DAILY valacyclovir [Valtrex] 500 mg tablet 500 mg PO QDAY Qty: 30 12RF Referrals / Follow Up: SHIVANI MONTESINOS NP-C [Primary Care Provider] - 12/12/222144<Electronically signed by Salma Willingham CNM>Salma Willingham CNM CC: SEAMLESS HOSIERY KNITTER-C SHIVANI MONTESINOS ~ Signed [facility] Work Phone: 1(327) 736-417510-31-2023 Procedure [facility] 12-12-2022 Progress note Author Salma Willingham [facility] December 12, 2022 3:52pm Note Date/Time December 12, 2022 3 :52pm [facility] Medical Records Department [address] [place] [address] Progress Note 12/12/22 1549 MR#: [id number] Acct: [id number] Name: LUIGI HANSON Rep #:[id number] : 1995 27 From: Salma Willingham CNM PCP: RACHEL LUCIANO Status:ADM IN [facility] Note Coping well with contractions current tracing: FHT: 120 Moderate variability reactive no decelerations category I tracing [place]: 2-4 Contractions Membranes: for bag ruptured at 1545 for clear fluid SVE:/-1 reviewed tracing abnormalities since last note: A/P: Continue with position changes consider starting pitocin per protocol if no cervical change in 2 hours Epidural per anesthesia if desired Anticipate Dr Parry aware of plan and agrees with plan of care Assessment & Plan Assessment/Plan (1) Active labor at term: (2) History of colposcopy: (3) H/O LEEP: (4) Rubella non-immune status, antepartum: (5) HSV (herpes simplex virus) infection: (6) Supervision of high risk , antepartum: (7) : QUALIFIERS: Weeks of gestation: 40 weeks Qualified Code(s): Z3A.40 - 40 weeks gestation of Multi Select Codes Urinary/Genital Urinary/Genital CPT Codes: No Charge 12/12/22 1552 <Electronically signed by Salma Willingham CNM> Salma Willingham CNM Cosigner Signature (if applicable): CC: ~ Signed [facility] Work Phone: 1(414) 276-983010-31-2023 Progress note Author Salma Willingham [facility] December 12, 2022 11:45am Note Date/Time December 12, 2022 1 1:45am [facility] Medical Records Department [address] [place] [address] Progress Note 12/12/22 1142 MR#: [id number] Acct: [id number] Name: LUIGI HANSON Rep #:[id number] : 1995 27 From: Salma Willingham CNM PCP: EDIE LUCIANOC Status:ADM IN Location: [place] [id number] Progress Note Coping well with contractions current tracing: FHT: 130 Moderate variability reactive no decelerations category I tracing [place]: 3-4 Contractions Membranes: SROM at 0300-remains clear SVE: /-2 reviewed tracing abnormalities since last note: NA A/P: Continue with position changes Consider starting pitocin per protocol if no cervical change with next exam Declines Epidural at this time Anticipate Dr Parry aware of plan and agrees with plan of care Assessment & Plan Assessment/Plan (1) Active labor at term: (2) Supervision of high risk , antepartum: (3) : QUALIFIERS: Weeks of gestation: 40 weeks Qualified Code(s): Z3A.40 - 40 weeks gestation of (4) HSV (herpes simplex virus) infection: (5) Rubella non-immune status, antepartum: (6) H/O LEEP: (7) History of colposcopy: Multi Select Codes Urinary/Genital Urinary/Genital CPT Codes: No Charge 12/12/22 1145 <Electronically signed by Salma Willingham CNM> Salma Willingham CNM Cosigner Signature (if applicable): CC: ~ Signed [facility] Work Phone: 1(607) 104-240310-31-2023 History and physical note Author Salma Willingham [facility] December 12, 2022 8:12am Note Date/Time December 12, 2022 8 :12am [facility] Medical Records Department [address] [place] [address] 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 Maternal Data Information CHANTEL Calculator Estimated Delivery Date Method Current WG Current Estimate 12/11/22 LMP (Certain) 40w 1d Other Estimates 12/10/22 Ultrasound #1 40w 2d Final CHANTEL: 12/11/22 Final CHANTEL Source: US >20 weeks Gestational age: 40.1 weeks PFSH PFSH Medical History HSV (herpes simplex virus) infection Home Medications multivitamin no.47-iron fum 27 mg-folate no.1 1 mg-dha 300 mg capsule (PNV- DHA)cap PO 04/26/22 [History Last Taken 12/11/22] magnesium 250 mg tablet 250 mg PO DAILY 09/18/22 [History Last Taken 12/11/22] valacyclovir 500 mg tablet (Valtrex) 500 mg PO QDAY #30 tabs 10/30/22 [Rx Last Taken 12/11/22] Allergy/AdvReac Type Severity Reaction Status Date / Time Sulfa (Sulfonamide AdvReac Vomiting Verified 12/12/22 05:10 Antibiotics) Family History Father A-fib Surgical History H/O LEEP History of colposcopy Social History adopted: No household members: spouse housing: house current occupational status: employed current occupation: [employer]- from home current occupational exposures/hazards: No pets and animals: Yes (Litter box-) pets and animals: cat(s) and dog(s) history of recent travel: Yes out of state: Yes sexually active: Yes Smoking Status: Never smoker Electronic Cigarette Use: not used alcohol intake: current alcohol intake frequency: holidays/special occasions only substance use type: does not use well-balanced diet: daily or most days caffeine: No eating out: 1-3 times/week seatbelt use: always do you feel safe at home: Yes 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 [employer] History 1 Elective abortions Hx Para 0 Spontaneous abortions Hx # Term Pregnancies Ectopic pregnancies Hx # Pregnancies Multiple births # of living children Visit Details Expected Delivery Route/Plan Labor Preferences- CB/BF classes: encouraged labor support person: Lm labor intervention preferences: [] pain management options preferred: limited cut cord/dad catch: cord : yes PP control planned: discussed discussed possible routes of delivery and associated risks: [] special requests: [] Plans Covid status: discussed Flu vaccine: discussed Tdap vaccine: given Rhogam: NA LARC form signed: yes movement and labor precautions reviewed. Problem list reviewed and updated with the most current plan of care details and appropriate orders placed. Relevant counseling for the gestational age provided. Continue routine care and follow up unless otherwise noted in visit notes/problem list details OB Flowsheet Initial Weight: Not Recorded Date -?-?-?-?-?-?-?-?-?-?-?-?- EGA Weight BP Urine Prot -?-?-?-?-?-?-?-?-?-?-?-?- Glucose FHR FuHt Pres Dilation -?-?-?-?-?-?-?-?-?-?-?-?- Effaced St Visit Note 05/04/22 -?-?-?-?-?-?-?-?-?-?-?-?- 8w 3d 147 lb 6 oz 118/78 -?-?-?-?-?-?-?-?-?-?-?-?- 170 -?-?-?-?-?-?-?-?-?-?-?-?- SM- CRL 1.8cm co ns with LMP 05/29/22 -?-?--?-?-?-?-?-?-?-?-?-?- 12w 0d 144 lb 2 oz 110/62 Nega tive -?-?-?-?-?-?-?-?-?-?-?-?- Negative 160 -?-?-?-?-?-?-?-?-?-?-?-?- MH-No VB. Fatigu e improved. No other concerns. PN labs today 06/26/22 -?-?-?-?-?-?-?-?-?-?-?-?- 16w 0d 143 lb 4 oz 106/72 Nega tive -?-?-?-?-?-?-?-?-?-?-?-?- Negative 155 -?-?-?-?-?-?-?-?-?-?-?-?- LC-no vb/crampin g. discussed and declines afp. has anatomy scheduled. LC-no vb/cramping. discussed and declines afp. has anatomy scheduled. normal labs 07/26/22 -?-?-?-?-?-?-?-?-?-?-?-?- 20w 2d 149 lb 6 oz Negative -?-?-?-?-?-?-?-?-?-?-?-?- Negative 160 20 -?-?-?-?-?-?-?-?-?-?-?-?- JV- no lof, vagi nal bleeding, or cramping. pt states that she got a $1600. (has [employer] insurance) 08/25/22 -?-?-?-?-?-?-?-?-?-?-?-?- 24w 4d 152 lb 6 oz 108/73 Nega tive -?-?-?-?-?-?-?-?-?-?-?-?- Negative 160 24 -?-?-?-?-?-?-?-?-?-?-?-?- SM- no vb lof go od fm no regular ctx 09/18/22 -?-?-?-?-?-?-?-?-?-?-?-?- 28w 0d 156 lb 6 oz 104/64 Nega tive -?-?-?-?-?-?-?-?-?-?-?-?- Negative 156 28 -?-?-?-?-?-?-?-?-?-?-?-?- MH-NO Vb, LOF Go od FM. 28 wk labs. Larc, tdap 10/04/22 -?-?-?-?-?-?-?-?-?-?-?-?- 30w 2d 161 lb 108/69 Negative -?-?-?-?-?-?-?-?-?-?-?-?- Negative 153 29 -?-?-?-?-?-?--?-?-?-?-?-?- MH-No Vb, LOF. G ood FM. Denies concerns 10/20/22 -?-?-?-?-?-?-?-?-?-?-?-?- 32w 4d 162 lb 8 oz 104/66 Nega tive -?-?-?-?-?-?-?-?-?-?-?-?- Negative 145 31 -?-?-?-?-?-?-?-?-?-?-?-?- KW- no vb/lof/ct x. good fm. 10/30/22 -?-?-?-?-?-?-?-?-?-?-?-?- 34w 0d 165 lb 2 oz 100/69 Nega tive -?-?-?-?-?-?-?-?-?-?-?-?- Negative 140 34 -?-?-?-?-?-?-?-?-?-?-?-?- SM- no vb lof go od fm no regular ctx 11/13/22 -?-?-?-?-?-?-?-?-?-?-?-?- 36w 0d 165 lb 6 oz 102/70 Nega tive -?-?-?-?-?-?-?-?-?-?-?-?- Negative 140 34 Cephalic 1 -?-?-?-?-?-?-?-?-?-?-?-?- 20 -4 SM- no vb lof good fm no regular ctx gbs done, growth us ordered 11/20/22 -?-?-?-?-?-?-?-?-?-?-?-?- 37w 0d 169 lb 8 oz 107/73 Nega tive -?-?-?-?-?-?-?-?-?-?-?-?- Negative 130 35 Cephalic 1 -?-?-?-?-?-?-?-?-?-?-?-?- 20 -4 LC- no vb/ ctx/lof. good fm. growth scan reassuring. 11/27/22 -?-?-?-?-?-?-?-?-?-?-?-?- 38w 0d 172 lb 117/75 Negative -?-?-?-?-?-?-?-?-?-?-?-?- Negative 140 36 Cephalic 1 .5 -?-?-?-?-?-?-?-?-?-?-?-?- 40 -2 SM- no vb lof good fm no regular ctx 12/06/22 -?-?-?-?-?-?-?-?-?-?-?-?- 39w 2d 171 lb 125/75 Negative -?-?-?-?-?-?-?-?-?-?-?-?- Negative 142 36 Cephalic 1 .5 -?-?-?-?-?-?-?-?-?-?-?-?- 50 -2 JV- no lof , vaginal bleeding, or dec fm. NST FHR Rate Baby A Baseline: 135 Variability:: Moderate Accelerations:: 15 x 15 Decelerations:: None NST Reactive:: Yes FHR Category:: Category I Uterine Activity:: 3-5 minutes ROS Constitutional Constitutional: Denies change in weight, fatigue, fever(s), headache(s), poor appetite or weakness Eyes Eyes: Denies blurry vision, change in vision, floaters, seeing flashes or spots in vision ENT HEENT: Denies dizziness, headache(s), loss taste/smell or sore throat Cardiovascular Cardiovascular: Denies chest pain, dizziness, dyspnea, irregular heart rhythm, lightheadedness, palpitations or rapid heart rate Respiratory/Chest Respiratory/Chest: Denies change in mental status, chest tightness, cough, dyspnea or breast pain Gastrointestinal Gastrointestinal: Denies anorexia, chewing difficulty, constipation, diarrhea or weight changes Genitourinary Genitourinary: Denies difficulty urinating, dysuria, flank pain, genital pain, urinary frequency or urinary urgency Musculoskeletal Musculoskeletal: Denies back pain, difficulty walking, extremity pain, joint pain, muscle cramps or muscle weakness Integumentary Integumentary: Denies lesions or unusual bruising Neurologic Neurologic: Denies abnormal movements, abnormal speech, dizziness, numbness, seizure-like activity, syncope or weakness Psychiatric Psychiatric: Denies behavioral changes, change in appetite, confusion, depression, homicidal ideation, suicidal ideation or suicidal thoughts Endocrine Endocrinology: Denies excessive sweating, polydipsia or polyuria Hematologic/Lymphatic Hematologic/Lymphatic: Denies anemia Allergic/Immunologic Allergic/Immunologic: Denies itchy eyes, lip swelling, throat swelling, tongue swelling or wheezing Vital Signs Vital Signs Vital Signs: 12/12/22 04:57 12/12/22 04:57 12/12/22 04:55 Temperature Temperature Source Temporal Pulse Rate 86 Blood Pressure 117/74 BP Systolic 117 BP Diastolic 74 Pulse Ox 12/12/22 04:55 12/12/22 07:30 12/12/22 07:30 Temperature 98.1 F Temperature Source Pulse Rate 66 Blood Pressure 116/81 H BP Systolic 116 BP Diastolic 81 Pulse Ox 12/12/22 07:44 12/12/22 07:44 12/12/22 07:30 Temperature Temperature Source Temporal Pulse Rate 70 Blood Pressure BP Systolic BP Diastolic Pulse Ox 98 12/12/22 07:30 Temperature 98.0 F Temperature Source Pulse Rate Blood Pressure BP Systolic BP Diastolic Pulse Ox Weight Weight: 172 lb 6.4 oz Body Mass Index (BMI) 29.5 Physical Exam Const alert, oriented x3 and no apparent distress General Appearance: cooperative Orientation / Consciousness: awake HEENT normocephalic Neck full ROM Lymph Lymphatic: no lymphadenopathy noted Chest inspection of chest normal Resp normal respiratory effort and normal air movement Effort and Inspection: able to speak in complete sentences and symmetric chest movement GI soft to palpation and non-tender Inspection: gravid Palpation: soft; Negative for tender external exam normal Back/Spine normal to inspection Extremity normal to inspection and full ROM Skin no rashes or lesions noted Psych mental status grossly normal Appearance: grossly normal Speech: normal speech Labs Labs Labs: Blood Type O POSITIVE Antibody Screen NEGATIVE Hct 37.5 % (37-47) Hgb 12.3 g/dL (12.0-15.0) Pap Smear Negative Obstetrics Ultrasound Syphilis Total Ab Non-reactive Rubella IgG Antibody Equiv (Nonreactive) Hep Bs Antigen Non-Reactive (Nonreactive) Hepatitis C Antibody Non-Reactive (Nonreactive) Chlamydia DNA (JULIUS) Negative (Negative) N.gonorrhoeae DNA (JULIUS) Negative (Negative) HIV 1&2 Antibody Non-Reactive (Nonreactive) Glucose 1 Hr 50 gm 91 mg/dL (70-140) Assessment & Plan (1) History of colposcopy: COMMENT: 09/15/20 CIN2 neg. biopsy and ECC neg. 03/30/21 CIN2 neg. biopsy and ECC neg. (2) H/O LEEP: COMMENT: normal CL screen. 2019. LEEP done 05/18/21 CIN2 with negative margins. repeat pap in 6 months with HPV testing (3) Rubella non-immune status, antepartum: COMMENT: MMR pp (4) HSV (herpes simplex virus) infection: COMMENT: recommend valtrex at 36 weeks. started. (5) Supervision of high risk , antepartum: COMMENT: PRR CHANTEL 12/11/22 Girl, Sherrill Lm (6) : QUALIFIERS: Weeks of gestation: 40 weeks Qualified Code(s): Z3A.40 - 40 weeks gestation of COMMENT: gbs neg. NIPT low risk decline dafp screen and carrier. nl anatomy (7) Active labor at term: PLAN: Patient presents IAL, plan expectant management for , pitocin/AROM PRN if needed. Pain management: plans no epidural. GBS neg. Management of any complications: none I have reviewed the [facility] and made any clinically relevant updates. Charges/Coding Multi Select Codes Urinary/Genital Urinary/Genital CPT Codes: No Charge 12/12/22 0812 <Electronically signed by Salma Willingham CNM> Cosigner Signature (if applicable): CC: REBECA Willingham; SEAMLESS HOSIERY KNITTERIgnacio MONTESINOS~ Signed [facility] Work Phone: 1(290) 671-748110-24-2022 NoteAccession #: [id number] Date of Procedure: 12/05/2021 Pathologist: [facility], Cytology Date Reported: 12/13/2021 Date Received: 12/05/2021 Submitting Physician: NEENA DENNY, DO FINAL CYTOLOGICAL INTERPRETATION A. THINPREP PAP CERVICAL: Specimen adequacy: SATISFACTORY FOR EVALUATION. Quality Indicator: Endocervical/transformation zone component is present. General Categorization: NEGATIVE FOR INTRAEPITHELIAL LESION OR MALIGNANCY. Ancillary Testing: Specimen does not meet the requisition-stated criteria for HPV testing. See Pap test interpretation above. QC review performed at [facility], [address] [place] [address] This specimen has been analyzed by the FRAMEDPrep Imaging System ([employer] an automated imaging and review system, which assists the laboratory in evaluating cells on ThinPrep Pap tests. Following automated imaging, selected skinner from every slide were reviewed by a deputy city clerk and/or pathologist. Electronically Signed Out By [facility], Cytology//IK/JMD By the signature on this report, the individual or group listed as making the Final Interpretation/Diagnosis certifies that they have reviewed this case. Diagnostic interpretation performed at [facility] [address] [facility] [place] [address] Educational Note: Cervical cytology is a screening procedure primarily for squamous cancers and precursors and has associated false-negative and false-positive results as evidenced by published data. Your patient?s test should be interpreted in this context, together with patient?s history and clinical findings. Regular sampling and follow-up of unexplained clinical signs and symptoms are recommended to minimize false negative results. Clinical History Date of Last Menstrual Period: 10/06/2021 Other Clinical Conditions: COTEST HPV(Genotype) except for ASC-H, HSIL, Carcinoma - Include HPV Genotype testing Clinical Diagnosis History: Encounter for Papanicolaou smear of cervix - (Z12.4); Women's annual routine gynecological examination - (Z01.419) Source of Specimen A: THINPREP PAP CERVICAL [facility] Department of Pathology [address] [place] [id number]. Joseph's Regional Medical CenterComment on above:Performed By: #### C #### [facility] Cytology [address] [place] [address] [id number] NoteEncounter Department: [facility] PHYSIC[facility] PRIMARY C[facility] Progress Notes by Lolis Ventura DO at 07/20/2021 4:00 PM Author: Eloy Alatorreice: -Author Type: Physician Filed: 07/20/2021 4:16 PMEncounter Date: 07/20/2021tatus: Signed Lead Dental Assistant: Lolis Ventura DO (Physician) Luigi Hanson [address] [place] [address] : 26 y.o.: 1995Phone: (home) Encounter Date: 07/20/2021 Vitals Temp 98.2 ?F (36.8 ?C) (Oral) Ht 5' 4 (1.626 m) Wt 137 lb (62.1 kg) LMP (LMP Unknown) No BMI 23.52 kg/m? Assessment and Plan Diagnoses and all orders for this visit: COVID-19 (Primary) Plan For stated symptoms was July 19. Last day of quarantine will be July 28. 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 She stated that she feels well enough to continue to workers compensation coordinator and declined need of a letter. Okay to use Tylenol or other brkd-xad-drbosms medications discussed with her CDC guidelines. She can follow-up as needed Chief Complaint Chief Complaint Patient presents with -Suspected Coronavirus (Covid-19) COVID POSITIVE The patient is here for the following problems were assessed/reviewed at today's visit. 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 She is fully vaccinated. Works from home. Physician note As above Patient states that she is already starting to feel better. Her first day of symptoms was yesterday. She woke up with a fever but it already subsided. She still has some mild body aches. No other red flag signs or symptoms. Review of Systems: As noted in HPI Review of Systems Constitutional: Positive for fatigue. Musculoskeletal: Positive for myalgias. Physical Exam Vitals and nursing note reviewed. Constitutional: Appearance: Normal appearance. She is normal weight. HENT: Head: Normocephalic and atraumatic. Pulmonary: Effort: Pulmonary effort is normal. Neurological: General: No focal deficit present. Mental Status: She is alert. Psychiatric: Mood and Affect: Mood normal. Behavior: Behavior normal. Thought Content: Thought content normal. Judgment: Judgment normal. Recent Results (from the past 1008 hour(s)) POCT SARS-CoV-2 AND Influenza A/B Collection Time: 07/20/21 11:11 AM ResultValueRef Range SARS-CoV-2 RNAPOSITIVE (A)NEGATIVE Influenza ANEGATIVENEGATIVE Influenza BNEGATIVENEGATIVE Current Outpatient Medications Ordered in [facility] MedicationSigDispenseRefill -noreth-ethinyl estradioL-iron (LAYOLIS FE) 0.8mg-25mcg(24) and 75 mg (4) ChewTake 1 tablet by mouth daily. Chew and [id number] tablet5 No current [facility]-ordered facility-administered medications on file. There are no preventive care reminders to display for this patient. Past Medical History: DiagnosisDate -ASCUS with positive high risk HPV [id number] Past Surgical History: ProcedureLateralityDate -COLPOSCOPY -LEEP05/18/2021 FILIBERTO 2 with negative margins Current Outpatient Medications MedicationSigDispenseRefill -noreth-ethinyl estradioL-iron (LAYOLIS FE) 0.8mg-25mcg(24) and 75 mg (4) ChewTake 1 tablet by mouth daily. Chew and [id number] tablet5 No current facility-administered medications for this visit. Allergies: Allergies AllergenReactions -Sulfa (Sulfonamide Antibiotics) Social History: Social History Tobacco Use -Smoking status:Never Smoker -Smokeless tobacco:Never Used Substance Use Topics -Alcohol use:Not Currently I have reviewed and updated all preliminary medical information for accuracy with the patient and corrected and completed as necessary. 11 min spent in video-conference Telehealth visit was provided during the COVID-19 national emergency, which also constitutes a nationwide public health emergency. This interation was provided via iexerci.se.oh as a covered health care providers subject to the HIPAA Rules may seek to communicate with patients, and provide telehealth services, through remote communications technologies. Today's Telehealth visit is provided via interactive by Lolis Ventura DO. The patient has consented to be treated electronically by way of this video technology. Electronically Signed by: Lolis Ventura DO, 07/20/2021 4:14 PM[facility]06[facility] NoteEncounter Department: [facility] Progress Notes by POLLY Calhoun at 07/20/2021 11:30 AM Author: Keisha Calhounvice: -Author Type: Certified Clinical Stain Wiper Filed: 07/20/2021 3:23 PMEncounter Date: 07/20/2021tatus: Signed Lead Dental Assistant: Marcella C Jose, CCMA (Certified Clinical Stain Wiper) Pt here for drive up COVID testing.[facility]05-18-2022 Note Encounter Department: [facility] Progress Notes by Akua Marmolejo CMA at 06/29/2021 3:30 PM Author: Akua Marmolejo CMAService: -Author Type: Seamer Filed: 06/29/2021 4:13 PMEncounter Date: 06/29/2021tatus: Signed Lead Dental Assistant: Akua Marmolejo CMA (Seamer) Gardasil 9 given IM Right Deltoid without difficulty. 2nd dosage. Lot#[id number] Exp. 09/26/2022. Next time due in 4 months[facility]04[facility] NoteEncounter Department: [facility] CL[facility]ICAL LAB[facility] Progress Notes by Rolanda Gabriel DO at 05/19/2021 2:40 PM Author: Ade Orozco: -Author Type: Physician Filed: 05/23/2021 8:20 AMEncounter Date: 05/19/2021tatus: Signed Lead Dental Assistant: Rolanda Gabriel DO (Physician) LEEP pathology reviewed, FILIBERTO 2 with negative margins. Recommend repeat pap smear with HPV testing in 6 months.[facility]04-06-2022 NoteEncounter Department: [facility] Progress Notes by Rolanda Gabriel DO at 05/18/2021 3:00 PM Author: Ade Orozco: -Author Type: Physician Filed: 05/18/2021 4:03 PMEncounter Date: 05/18/2021tatus: Signed Lead Dental Assistant: Rolanda Gabriel DO (Physician) LEEP Procedure Note Pre-op diagnosis: FILIBERTO 2 Post-op diagnosis: FILIBERTO 2 Procedure: Loop Electrode Excisional Procedure Anesthesia: 10 ml of 1% Lidocaine with Epinephrine EBL: less than 25 ml Specimens: Exocervix Complications: None Indications: This is a 26 y.o. female, , that presents to the office for a LEEP procedure. The patient recently underwent colposcopy with cervical biopsy. The cervical biopsy revealed FILIBERTO 2. After being presented with the risks, benefits, and specific details of the procedure informed consent was obtained and signed. A copy of the consent form has been scanned. Procedure Details: Procedure: the patient was placed on the table in a dorsal lithotomy position and draped in the appropriate manner. 10 ml of 1% Lidocaine with Epinephrine was injected in a sterile fashion using a Potaki needle to obtain a paracervical block. LEEP cervical conization was performed after visualizing the cervical lesion with the application of Lugol's solution. A loop electrode was used to remove a portion of the ectocervix. The specimens were labeled separately, and sent for pathologic evaluation. The remaining cervical bed was cauterized with the ball tip for hemostatic purposes. There was no significant bleeding. Hemostasis was obtained with the ball tip electrocautery followed by Monsel's solution. Post Procedure Status; The patient tolerated the procedure well. Post LEEP instructions were reviewed and a handout was given to the patient. She will be contacted with pathologic results and will follow-up in 6 months.[facility]03-16-2022 NoteEncounter Department: [facility] Progress Notes by Rolanda Gabriel DO at 04/27/2021 8:50 AM Author: Shilpa Orozcorvice: -Author Type: Physician Filed: 04/27/2021 2:48 PMEncounter Date: 04/27/2021tatus: Signed Lead Dental Assistant: Rolanda Gabriel DO (Physician) Chief Complaint: Chief Complaint Patient presents with -Follow-up Discuss colpo results from 04/08/2021 -Immunizations Gardasil 9, 1st dosage History of Present Illness This is a 26 y.o. female, who presents for follow up to discuss Colpo results from 04/08/2021. Colposcopy revealed FILIBERTO 2 at the 12:00 position on the ectocervix, negative biopsy at the 3:00 position and negative ECC. Results reviewed with patient. Discussed options to continue to monitor closely with repeat colposcopies and HPV testing every 6 months for up to 2 years vs proceeding with an excisional procedure. Patient states she desires to proceed with a LEEP. Reviewed R/B/A to LEEP including pain, bleeding, infection, scarring, inability to remove all abnormal cells, risk for delivery with subsequent , and need for additional procedures. All questions answered. Gardasil 9 given IM Left Deltoid without difficulty. Lot#[id number] Exp. 09/23/2022. Next time due in 2 months. Past Medical History Past Medical History: DiagnosisDate -ASCUS with positive high risk HPV [id number] Past Surgical History Past Surgical History: ProcedureLateralityDate -COLPOSCOPY Medication List Outpatient Medications Marked as Taking for the 04/27/21 encounter (Office Visit) with Rolanda Gabriel, MedicationSigDispenseRefill -noreth-ethinyl estradioL-iron 0.8mg-25mcg(24) and 75 mg (4) ChewTake 1 tablet by mouth daily.30 [id number] Allergy list Allergies AllergenReactions -Sulfa (Sulfonamide Antibiotics) Family Medical History Family History ProblemRelationAge of Onset -Breast cancerPaternal Aunt60 Genetic History Reproductive History OB History 0 Para 0 Term 0 0 AB 0 Living 0 SAB 0 IAB 0 Ectopic 0 Multiple 0 Live Births 0 Social History Social History Socioeconomic History -Marital status: Spouse name:Not on file -Number of children:Not on file -Years of education:Not on file -Highest education level:Not on file Occupational History -Not on file Tobacco Use -Smoking status:Never Smoker -Smokeless tobacco:Never Used Vaping Use -Vaping Use:Never used Substance and Sexual Activity -Alcohol use:Not Currently -Drug use:Never -Sexual activity:Yes Partners:Male control/protection:OCP, Condom Other TopicsConcern -Daily Caffeine Intake ?Not Asked -Do you exercise regularly ?Not Asked Social History Narrative -Not on file Social Determinants of Health Financial Resource Strain: Not on file Food Insecurity: Not on file Transportation Needs: Not on file Physical Activity: Not on file Stress: Not on file Social Connections: Not on file Intimate Partner Violence: Not on file Housing Stability: Not on file Immunizations Immunization History AdministeredDate(s) Administered -COVID-19, mRNA, 30 mcg/0.3 ml (PFIZER Purple Cap)11/25/2020 -HPV, fyhoslsmde62/16/2022 Review of Systems Constitutional:denies weight loss Eyes: denies impaired vision HENT: denies headaches Breasts:denies a breast lump, breast tenderness and a nipple discharge Cardiovascular: denies chest pain Respiratory: denies shortness of breath Gastrointestinal: deniesconstipation and diarrhea Genitourinary: denies oliguria Integument: denies new skin lesion(s) Neurological: denies speech difficulties Musculoskeletal:denies muscle weakness Physical Examination Constitutional: alert, well - nourished and well developed Respiratory: breathing unlabored Other:no other pertinent findings Assessment and Plan: ICD-10-CM 1.Moderate dysplasia of cervix (FILIBERTO II) N87.1 Reviewed colposcopy results, persistant FILIBERTO 2 Discussed options to continue close surveillance vs proceed with LEEP Patient desires LEEP, all questions answered 2.HPV vaccine counseling HPV vaccination series started [id number] vaccine nonavalent [facility]02-18-2022 NoteEncounter Department: [facility] CLINICAL LAB[facility] Progress Notes by Rolanda Gabriel DO at 04/01/2021 11:08 AM Author: Ade Orozco: -Author Type: Physician Filed: 04/06/2021 12:26 PMEncounter Date: 04/01/2021tatus: Signed Lead Dental Assistant: Rolanda Gabriel DO (Physician) Colposcopy reveals FILIBERTO 2 at 12:00 position, ECC negative. Please schedule for follow up in the office to discuss results.[facility]02-16-2022 NoteEncounter Department: [facility] Progress Notes by Rolanda Gabriel DO at 03/30/2021 3:00 PM Author: Ade Orozco: -Author Type: Physician Filed: 03/30/2021 4:40 PMEncounter Date: 03/30/2021tatus: Signed Lead Dental Assistant: Rolanda Gabriel DO (Physician) Colposcopy Procedure Note Indications: This is a 26 y.o. female, , whose LMP was on medication. She presents for colposcopy for the evaluation of a Colpo on 09/15/20 was FILIBERTO II. She understands the need for the procedure and is aware of the potential for complications, including post - colposcopic vaginal bleeding, vaginal bleeding, vaginal leukorrhea or cervicitis/endometritis. She was informed that she may experience discomfort. After being presented with the risks, benefits, and alternatives, informed consent was obtained and signed. Procedure Details: She was positioned in the dorsal lithotomy position and a speculum was inserted in the vagina and excellent visualization of cervix achieved, cervix swabbed x 3 with 5% acetic acid solution and Lugol's solution. The squamocolumnar junction was not completely visualized. Cervical biopsies were performed. 3 o'clock and 12 o'clock. An endocervical curettage was performed and the specimen was sent to pathology. This colposcopy was unsatisfactory. Findings: The procedure was notable for visible lesions from the 11-12:00 and 3:00 Additional procedures: No additional procedures were performed. Post Procedure Status: The patient tolerated the procedure well. Will follow up results via My Chart. [facility]01-01-[facility] History of Present illness Narrative 26[facility]year-[facility]. Patient will be recruited for few years and recently had a LEEP earlier this year per another MATH INTERVENTIONIST provider. Patient was told for 6-month follow-up. Patient here for annual. Patient does occasional self breast exams no lumps bumps masses. Patient offof control is not going to do start taking vitamin shortly. Patient starting to expand her family. Patient was wearing physical activity. Patient is no other [facility] [address] Work Phone: [phone]) 836-535410-27-2021 NoteEncounter Department: [facility] Progress Notes by Lolis Ventura DO at 12/08/2020 9:00 AM Author: Shilpa Alatorrervice: -Author Type: Physician Filed: 12/08/2020 9:27 AMEncounter Date: 12/08/2020tatus: Signed Lead Dental Assistant: Lolis Ventura DO (Physician) : 25 y.o.: 1995Phone: (home) Encounter Date: 12/08/2020 Vitals BP 116/68 Temp 97.8 ?F (36.6 ?C) Wt 139 lb (63 kg) BMI 23.86 kg/m? Assessment Assessment and Plan Diagnoses and all orders for this visit: Nonintractable episodic headache, unspecified headache type (Primary) - MRI-ANGIO HEAD W/WO CONTRAST Dizziness - MRI-ANGIO HEAD W/WO CONTRAST Vascular origin tinnitus - MRI-ANGIO HEAD W/WO CONTRAST plan: Discussed with her the common causes such as dehydration, increase physical activity, alcohol, caffeine. Advised her to continue to try to identify triggers. In the meantime I will get an MRI of the head ordered to specifically assess for any intracranial abnormalities. I will notify her with results. 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 The current episode started 1 to 4 weeks ago. The problem occurs daily. The problem has been waxing and waning. The pain does not radiate. The pain quality is similar to prior headaches. The quality of the pain is described as aching. The pain is mild. Pertinent negatives include no abdominal pain, abnormal behavior, anorexia, back pain, blurred vision, coughing, dizziness, drainage, ear pain, eye pain, eye redness, eye watering, facial sweating, fever, hearing loss, insomnia, loss of balance, muscle aches, nausea, neck pain, numbness, phonophobia, photophobia, rhinorrhea, scalp tenderness, seizures, sinus pressure, sore throat, swollen glands, tingling, tinnitus, visual change, vomiting, weakness or weight loss. Nothing aggravates the symptoms. She has tried NSAIDs for the symptoms. The treatment provided mild relief. There is no history of cancer, cluster headaches, hypertension, immunosuppression, migraine headaches, migraines in the family, obesity, pseudotumor cerebri, recent head traumas, sinus disease or TMJ. Note: Patient states over the last few weeks she has noticed a pulsating sound in both ears. It is unilateral when it happens and will switch back and forth. She is also had headaches as well as intermittent dizziness. She is not sure if there is any precipitating factors but notices it is worse after having a hard seltzer more caffeine than usual or eating carbohydrates. She denies any red flag signs or symptoms. She denies any focal neurologic deficits. She denies any personal or family history of cerebral aneurysm. Review of Systems: As noted in HPI Review of Systems Constitutional: Negative for activity change, appetite change, fatigue, fever and unexpected weight change. HENT: Pulsating sound in both ears Eyes: Negative for visual disturbance. Respiratory: Negative for chest tightness and shortness of breath. Cardiovascular: Negative for chest pain and palpitations. Gastrointestinal: Negative for abdominal pain and nausea. Neurological: Positive for dizziness, light-headedness and headaches. Negative for tremors, syncope, facial asymmetry, weakness and numbness. Hematological: Negative for adenopathy. Physical Exam Vitals and nursing note reviewed. Constitutional: Appearance: Normal appearance. She is normal weight. HENT: Head: Normocephalic and atraumatic. Right Ear: Tympanic membrane, ear canal and external ear normal. Left Ear: Tympanic membrane, ear canal and external ear normal. Mouth/Throat: Mouth: Mucous membranes are moist. Pharynx: Oropharynx is clear. Eyes: Extraocular Movements: Extraocular movements intact. Conjunctiva/sclera: Conjunctivae normal. Pupils: Pupils are equal, round, and reactive to light. Cardiovascular: Rate and Rhythm: Normal rate and regular rhythm. Pulses: Normal pulses. Heart sounds: Normal heart sounds. Pulmonary: Effort: Pulmonary effort is normal. Breath sounds: Normal breath sounds. Abdominal: General: Abdomen is flat. Bowel sounds are normal. Palpations: Abdomen is soft. Musculoskeletal: Right lower leg: No edema. Left lower leg: No edema. Skin: General: Skin is warm and dry. Neurological: General: No focal deficit present. Mental Status: She is alert and oriented to person, place, and time. Cranial Nerves: No cranial nerve deficit. Sensory: No sensory deficit. Motor: No weakness. Coordination: Coordination normal. Gait: Gait normal. Deep Tendon Reflexes: Reflexes normal. Psychiatric: Mood and Affect: Mood normal. Behavior: Behavior normal. Thought Content: Thought content normal. Judgment: Judgment normal. No results found for this or any previous visit (fr (more content not included)...[facility]08-18-2021 NoteEncounter Department: [place] [facility] RO[facility] CLERK Progress Notes by Rolanda Gabriel DO at 09/29/2020 9:10 AM Author: Shilpa Orozcorvice: -Author Type: Physician Filed: 09/29/2020 10:32 AMEncounter Date: 09/29/2020tatus: Signed Lead Dental Assistant: Rolanda Gabriel DO (Physician) Chief Complaint: Chief Complaint Patient presents with -Follow-up Discuss Colpo results from 09/15/2020 History of Present Illness This is a 25 y.o. female, who presents for follow up to discuss Colpo results from 09/15/2020. Her pap smear showed ASCUS cannot rule out HGSIL. Colposcopy revealed FILIBERTO 2 at 8:00 position, negative biopsy at 11:00 and negative ECC. Discussed results with patient. Option to treat FILIBERTO 2 with excision via a LEEP or to proceed with close observation with repeat colposcopy and HPV testing at 6 and 12 months. Reviewed R/B/A to both options. Patient denies any tobacco use, counseled on barrier protection. All questions answered. Past Medical History Past Medical History: DiagnosisDate -ASCUS with positive high risk HPV [id number] Past Surgical History Past Surgical History: ProcedureLateralityDate -COLPOSCOPY Medication List Outpatient Medications Marked as Taking for the 09/29/20 encounter (Office Visit) with Rolanda Gabriel, DO MedicationSigDispenseRefill -noreth-ethinyl estradioL-iron 0.8mg-25mcg(24) and 75 mg (4) ChewTake 1 tablet by mouth daily.30 [id number] Allergy list Allergies AllergenReactions -Sulfa (Sulfonamide Antibiotics) Family Medical History Family History ProblemRelationAge of Onset -Breast cancerPaternal Aunt60 Genetic History Reproductive History OB History 0 Para 0 Term 0 0 AB 0 Living 0 SAB 0 TAB 0 Ectopic 0 Multiple 0 Live Births 0 Social History Social History Socioeconomic History -Marital status:Single Spouse name:Not on file -Number of children:Not on file -Years of education:Not on file -Highest education level:Not on file Occupational History -Not on file Tobacco Use -Smoking status:Never Smoker -Smokeless tobacco:Never Used Vaping Use -Vaping Use:Never used Substance and Sexual Activity -Alcohol use:Not Currently -Drug use:Never -Sexual activity:Yes Partners:Male control/protection:OCP, Condom Other TopicsConcern -Daily Caffeine Intake ?Not Asked -Do you exercise regularly ?Not Asked Social History Narrative -Not on file Social Determinants of Health Financial Resource Strain: -Difficulty of Paying Living Expenses: Not on file Food Insecurity: -Worried About Running Out of Food in the Last Year: Not on file -Ran Out of Food in the Last Year: Not on file Transportation Needs: -Lack of Transportation (Medical): Not on file -Lack of Transportation (Non-Medical): Not on file Physical Activity: -Days of Exercise per Week: Not on file -Minutes of Exercise per Session: Not on file Stress: -Feeling of Stress : Not on file Social Connections: -Frequency of Communication with Friends and Family: Not on file -Frequency of Social Gatherings with Friends and Family: Not on file -Attends Yarsani Services: Not on file -Active Member of Clubs or Organizations: Not on file -Attends Club or Organization Meetings: Not on file -Marital Status: Not on file Intimate Partner Violence: -Fear of Current or Ex-Partner: Not on file -Emotionally Abused: Not on file -Physically Abused: Not on file -Sexually Abused: Not on file Immunizations There is no immunization history on file for this patient. Review of Systems Constitutional:denies weight loss Eyes: denies impaired vision HENT: denies headaches Breasts:denies a breast lump, breast tenderness and a nipple discharge Cardiovascular: denies chest pain Respiratory: denies shortness of breath Gastrointestinal: deniesconstipation and diarrhea Genitourinary: denies oliguria Integument: denies new skin lesion(s) Neurological: denies speech difficulties Musculoskeletal:denies muscle weakness Physical Examination Constitutional: alert, well - nourished and well developed Respiratory: breathing unlabored Other:no other pertinent findings Assessment and Plan: ICD-10-CM 1.Dysplasia of cervix, high grade FILIBERTO 2 N87.1 Reviewed colposcopy results with patient Discussed option for LEEP vs close observation with repeat colpo and HPV testing in 6 months Patient undecided at this but will contact office when she decides how she would [facility] to [facility] Department: [facility] Progress Notes by Lolis Ventura DO at 09/28/2020 2:00 PM Author: Lolis Ventura DOService: -Author Type: Physician Filed: 09/28/2020 2:41 PMEncounter Date: 09/28/2020tatus: Signed Lead Dental Assistant: Lolis Ventura DO (Physician) : 25 y.o.: 1995Phone: (home) Encounter Date: 09/28/2020 Vitals BP 106/71 Pulse 67 Ht 5' 4 (1.626 m) Wt 135 lb 6.4 oz (61.4 kg) LMP (LMP Unknown) BMI 23.24 kg/m? Assessment Assessment and Plan Diagnoses and all orders for this visit: Well adult exam (Primary) plan Current on Follow up in 1 yr or sooner prn Chief Complaint Chief Complaint Patient presents with -Annual Exam HPI Ms. Jansen is here today to establish care. She has no concerns Health maintenance: Medications: reviewed, taking as directed Labs: N/A Immunizations: up to date Colonoscopy: no indication for early screening Mammogram: no indication for early screening Cervical Cancer screening: Current, recently had ASCUS, follow up with OBGYN tomorrow to discuss plan of care Lifestyle: Recently moved from [facility]. 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 Review of Systems: As noted in HPI Review of Systems Constitutional: Negative for activity change, appetite change, diaphoresis, fatigue, fever and unexpected weight change. HENT: Negative for congestion, hearing loss, tinnitus and voice change. Eyes: Negative for visual disturbance. Respiratory: Negative for cough and shortness of breath. Cardiovascular: Negative for chest pain, palpitations and leg swelling. Gastrointestinal: Negative for abdominal pain, blood in stool, constipation, diarrhea, nausea and vomiting. Genitourinary: Negative for difficulty urinating, hematuria, vaginal bleeding and vaginal pain. Musculoskeletal: Negative for arthralgias and myalgias. Skin: Negative for rash. Neurological: Negative for dizziness, tremors, seizures, syncope, weakness, light-headedness, numbness and headaches. Hematological: Negative for adenopathy. Psychiatric/Behavioral: Negative for dysphoric mood, self-injury, sleep disturbance and suicidal ideas. The patient is not nervous/anxious. Physical Exam Vitals and nursing note reviewed. Constitutional: Appearance: Normal appearance. She is normal weight. HENT: Head: Normocephalic and atraumatic. Cardiovascular: Rate and Rhythm: Normal rate and regular rhythm. Pulses: Normal pulses. Heart sounds: Normal heart sounds. Pulmonary: Effort: Pulmonary effort is normal. Breath sounds: Normal breath sounds. Abdominal: General: Abdomen is flat. Bowel sounds are normal. Palpations: Abdomen is soft. Musculoskeletal: Right lower leg: No edema. Left lower leg: No edema. Skin: General: Skin is warm and dry. Neurological: General: No focal deficit present. Mental Status: She is alert. Motor: No weakness. Gait: Gait normal. Deep Tendon Reflexes: Reflexes normal. Psychiatric: Mood and Affect: Mood normal. Behavior: Behavior normal. Thought Content: Thought content normal. Judgment: Judgment normal. Recent Results (from the past 1008 hour(s)) Pap Smear Gynecologic Cytology ([facility]) Collection Time: 08/18/20 2:35 PM ResultBUSINESS OWNERS ADVANTAGE CASE REPORT [facility] Pathology Services Gynecologic Cytology Case: [id number] Authorizing Provider: Rolanda Gabriel DO Collected: 08/18/2020 02:35 PM Ordering Location: [facility] Received: 08/21/2020 09:12 AM Clinical Laboratory First Screen: IVANIA Coronado (ASCP) Pathologist: Jt Astorga MD Specimen: Pap Smear, ThinPrep W/Imaging, Cervical SPECIMEN ADEQUACY Satisfactory for evaluation, endocervical component present MATH INTERVENTIONIST PRIMARY INTERPRETATION ATYPICAL SQUAMOUS CELLS, CANNOT EXCLUDE HIGH GRADE SQUAMOUS INTRAEPITHELIAL LESION. HPV Reflex?[place] [facility] [place] condition Tissue Exam Collection Time: 09/15/20 12:00 AM Daily[employer] CASE REPORT [facility] Pathology Services Surgical Pathology Case: [id number] Authorizing Provider: Rolanda Gabriel DO Collected: 09/15/2020 Ordering Location: [facility] Received: 09/17/2020 10:51 AM Clinical Laboratory Pathologist: Van Driscoll MD Specimens: A) - Cervical, Ectocervix- 11 o'clock B) - Cervical, Ectocervix- 8 o'clock C) - Endocervical, ECC Clinical Diagnosis Requisition diagnosis: Atypical squamous cells cannot exclude high grade squamous intraepithelial lesion on cytologic smear of cervix (ASC-H) Request to correlate with most recent pap smearYes FINAL DIAGNOSIS A. CERVIX, 11 O'CLOCK, BIOPSY: -- ENDOCERVICAL MUCOSA WITH MICROGLANDULAR ADENOSIS AND FOCAL SQUAMOUS METAPLASIA. -- NO DYSPLASIA OR MALIGNANCY IDENTIFIED. B. CERVIX, 8 O'CLOCK, BIOPSY (more content not included)...[facility]08-06-2021 NoteEncounter Department: [facility] CLINICAL LAB[facility] Progress Notes by Rolanda Gabriel DO at 09/17/2020 10:50 AM Author: Ade Orozco: -Author Type: Physician Filed: 09/21/2020 9:25 AMEncounter Date: 09/17/2020tatus: Signed Lead Dental Assistant: Rolanda Gabriel DO (Physician) Colposcopy reveals FILIBERTO 2. Please schedule patient for follow up to discuss treatment options.[facility]08-04-2021 NoteEncounter [facility] Progress Notes by Rolanda Gabriel DO at 09/15/2020 3:00 PM Author: Ade Orozco: -Author Type: Physician Filed: 09/15/2020 3:32 PMEncounter Date: 09/15/2020tatus: Signed Lead Dental Assistant: Rolanda Gabriel DO (Physician) Colposcopy Procedure Note Indications: This is a 25 y.o. female, , whose LMP was on unknown, continuos control. She presents for colposcopy for the evaluation of a ASCUS cannot exclude HSIL. She understands the need for the procedure and is aware of the potential for complications, including post - colposcopic vaginal bleeding, vaginal bleeding, vaginal leukorrhea or cervicitis/endometritis. She was informed that she may experience discomfort. After being presented with the risks, benefits, and alternatives, her questions were answered and informed consent was obtained and signed. Procedure Details: She was positioned in the dorsal lithotomy position and a speculum was inserted in the vagina and excellent visualization of cervix achieved, cervix swabbed x 3 with 5% acetic acid solution and Lugol's. The squamocolumnar junction was not completely visualized. Cervical biopsies were performed. 8 o'clock and 11 o'clock. An endocervical curettage was performed and the specimen was sent to pathology. This colposcopy was unsatisfactory. Findings: The procedure was notable for acetowhite changes and decreased Lugols extending from the 7:00 to the 12:00 position. Additional procedures: No additional procedures were performed. Post Procedure Status: The patient tolerated the procedure well.[facility]07-07-2021 Note Encounter Department: [place] [facility] CLERK Progress Notes by Rolanda Gabriel DO at 08/18/2020 2:20 PM Author: Rolanda Gabriel DOService: -Author Type: Physician Filed: 08/18/2020 3:08 PMEncounter Date: 08/18/2020tatus: Signed Lead Dental Assistant: Rolanda Gabriel DO (Physician) History and Physical Chief Complaint: Chief Complaint Patient presents with -Gynecologic Exam History of Present Illness This is a 25 y.o. female, who presents for her yearly exam. No LMP recorded (exact date). (Menstrual status: Medication). She reports she harmon snot bleed every month with her pill but has PMS symptoms. She reports when she does bleed it is light. Her method of contraception is: condoms and OCP (estrogen/progesterone) cyclic. She reports no additional gynecologic complaints. Sexual History: She has been sexually active and reports 7 sexual partners in her lifetime, contraception - condoms occasionally and OCP (estrogen/progesterone). She stated her age at first intercourse to be 16 years old. Pap Smear History: Her last Pap smear was 09/2019. The most recent Pap smear result was no abnormalities. Her medical history is significant for HPV+. She states she had colpo 2018. Breast History: She denies breast symptons. She performs breast self-exams monthly. HPV Vaccination: She has never had the HPV vaccine series. Past Medical History Past Medical History: DiagnosisDate -ASCUS with positive high risk HPV [id number] Past Surgical History Past Surgical History: ProcedureLateralityDate -COLPOSCOPY Medication List Current Outpatient Medications MedicationSigDispenseRefill -noreth-ethinyl estradioL-iron 0.8mg-25mcg(24) and 75 mg (4) ChewTake 1 tablet by mouth daily.30 [id number] No current facility-administered medications for this visit. Allergy list Allergies AllergenReactions -Sulfa (Sulfonamide Antibiotics) Family Medical History Family History ProblemRelationAge of Onset -Breast cancerPaternal Aunt60 Hereditary Cancer Screening: Her family history is positive for breast no, ovarian no, uterine no, colon no, Prostate no, Ureter/Kidney no. Reproductive History OB History 0 Para 0 Term 0 0 AB 0 Living 0 SAB 0 TAB 0 Ectopic 0 Multiple 0 Live Births 0 Social History Social History Socioeconomic History -Marital status:Single Spouse name:Not on file -Number of children:Not on file -Years of education:Not on file -Highest education level:Not on file Occupational History -Not on file Tobacco Use -Smoking status:Never Smoker -Smokeless tobacco:Never Used Vaping Use -Vaping Use:Never used Substance and Sexual Activity -Alcohol use:Not Currently -Drug use:Never -Sexual activity:Yes Partners:Male control/protection:OCP, Condom Other TopicsConcern -Not on file Social History Narrative -Not on file Social Determinants of Health Financial Resource Strain: -Difficulty of Paying Living Expenses: Food Insecurity: -Worried About Running Out of Food in the Last Year: -Ran Out of Food in the Last Year: Transportation Needs: -Lack of Transportation (Medical): -Lack of Transportation (Non-Medical): Physical Activity: -Days of Exercise per Week: -Minutes of Exercise per Session: Stress: -Feeling of Stress : Social Connections: -Frequency of Communication with Friends and Family: -Frequency of Social Gatherings with Friends and Family: -Attends Yarsani Services: -Active Member of Clubs or Organizations: -Attends Club or Organization Meetings: -Marital Status: Intimate Partner Violence: -Fear of Current or Ex-Partner: -Emotionally Abused: -Physically Abused: -Sexually Abused: Immunizations There is no immunization history on file for this patient. Review of Systems: Negative, except as above. History obtained from the patient. General ROS: negative for - chills, fever or night sweats Psychological ROS: negative for - anxiety, depression or suicidal ideation Ophthalmic ROS: negative for - blurry vision, double vision or photophobia ENT ROS: negative for - headaches or visual changes Allergy and Immunology ROS: negative Hematological and Lymphatic ROS: negative for - jaundice or night sweats Endocrine ROS: negative Breast ROS: negative for breast lumps, galactorrhea or nipple discharge Respiratory ROS: no cough, shortness of breath, or wheezing Cardiovascular ROS: no chest pain or dyspnea on exertion Gastrointestinal ROS: no abdominal pain, change in bowel habits, or black or bloody stools Genito-Urinary ROS: no dysuria, trouble voiding, or hematuria Musculoskeletal ROS: negative Neurological ROS: no TIA or stroke symptoms and negative for dizziness, headaches, seizures or visual changes Dermatological ROS: negative Physical Examination Constitutional: alert, well - nourished and well developed Thyroid: gland size normal, nontender, no nodules or masses to inspection and palp (more content not included)...[facility] Diagnosis Onset Date Resolution Status HSV (herpes simplex virus) infection acute acute Supervision of high risk , antepartum acute [facility] Work Phone: Evaluation note* Diagnosis Onset Date Resolution Status HSV (herpes simplex virus) infection acute acute Supervision of high risk , antepartum acute HSV (herpes simplex virus) infection acute acute Rubella non-immune status, antepartum acute Supervision of high risk , antepartum acute HSV (herpes simplex virus) infection acute acute Rubella non-immune status, antepartum acute Supervision of high risk , antepartum acute H/O LEEP acute HSV (herpes simplex virus) infection acute acute Rubella non-immune status, antepartum acute Supervision of high risk , antepartum acute H/O LEEP acute History of colposcopy acute HSV (herpes simplex virus) infection acute acute Rubella non-immune status, antepartum acute Supervision of high risk , antepartum acute [facility] Work Phone: Evaluation note* Diagnosis Onset Date Resolution Status H/O LEEP acute HSV (herpes simplex virus) infection acute Rubella non-immune status, antepartum acute resolved Supervision of high risk , antepartum resolved H/O LEEP acute History of colposcopy acute HSV (herpes simplex virus) infection acute Rubella non-immune status, antepartum acute resolved Supervision of high risk , antepartum resolved H/O LEEP acute HSV (herpes simplex virus) infection acute Rubella non-immune status, antepartum acute resolved Supervision of high risk , antepartum resolved H/O LEEP acute History of colposcopy acute HSV (herpes simplex virus) infection acute Rubella non-immune status, antepartum acute resolved Supervision of high risk , antepartum resolved H/O LEEP acute History of colposcopy acute HSV (herpes simplex virus) infection acute Rubella non-immune status, antepartum acute resolved Supervision of high risk , antepartum resolved H/O LEEP acute History of colposcopy acute HSV (herpes simplex virus) infection acute Rubella non-immune status, antepartum acute resolved Supervision of high risk , antepartum resolved Uterine size-date discrepancy, third trimester resolved H/O LEEP acute History of colposcopy acute HSV (herpes simplex virus) infection acute Rubella non-immune status, antepartum acute resolved Supervision of high risk , antepartum resolved Uterine size-date discrepancy, third trimester resolved H/O LEEP acute History of colposcopy acute HSV (herpes simplex virus) infection acute Rubella non-immune status, antepartum acute resolved Supervision of high risk , antepartum resolved Uterine size-date discrepancy, third trimester resolved H/O LEEP acute History of colposcopy acute HSV (herpes simplex virus) infection acute Rubella non-immune status, antepartum acute resolved Supervision of high risk , antepartum resolved Uterine size-date discrepancy, third trimester resolved H/O LEEP acute History of colposcopy acute HSV (herpes simplex virus) infection acute Rubella non-immune status, antepartum acute resolved Supervision of high risk , antepartum resolved H/O LEEP acute History of colposcopy acute HSV (herpes simplex virus) infection acute Rubella non-immune status, antepartum acute Vaginal delivery acute resolved Supervision of high risk , antepartum resolved [facility] Work Phone: Evaluation note* Diagnosis Onset Date Resolution Status Dyspareunia in female acute [facility] Work Phone: Evaluation note* Diagnosis Wellness examination- Primary History of hemorrhoids documented in this encounter [facility] Work Phone: History of Present illness Narrative* Luigi comes to the office to establish as new patient. * Cervical CA Screening: thru marketing operations intern. Last PAP in 2019, On OCP's. + LEEP & scheduled for a f/u PAP in November * Nonsmoker, No alcohol. Trying to starting exercising by lifting and 3-4d/w for 60 * fxhx reviewed today; da dx w/ AF @ 64Y, g'father w/ CV disease; @ age 75Y * no labs recently * no hospitalizations in last yr * c/o heart racing approximately 3-4 times per week and lasts for 15 minutes she feels it is worse around the time of her menses. And it feels like there is a heartbeat in her left ear. She previously was seen for this same complaint of ringing and pulsation in the left ear and indicates that she had a brain MRI which was normal. Triggered by exercise/caffeine/postprandial (niles. a diet heavy in CHO). Relieving factors: Relaxing will make it stop on it's own. * Menses described as light and infrequent since she has been on oral control. Infrequent use of multivitamins. Caffeine: 2 lg cups of coffee in the mornings. Palpitations have not worsened over time. BP- Normotensive in office today [facility] Work Phone: Summary Purpose Family History No Family History Records Found Grandparent Name Dates Details Family history of dementia(V 17.2, Z81.8) Status:Active aunt Name Dates Details Family history of dementia(V 17.2, Z81.8) Status:Active Unknown Family Member Name Dates Details Family history of dementia: Grandparent, Aunt(V17.2, Z81.8) Status:Active No pertinent family history: Mother(V49.89, Z78.9) Status:Active Family history of atrial fib rillation: Father(V17.49, Z82.49) Status:Active Unknown Family Member Name Dates Details Family history of dementia: Grandparent, Aunt(V17.2, Z81.8) Status:Active No pertinent family history: Mother(V49.89, Z78.9) Status:Active Family history of atrial fib rillation: Father(V17.49, Z82.49) Status:Active Unknown Family Member Name Dates Details Family history of dementia: Grandparent, Aunt(V17.2, Z81.8) Status:Active No pertinent family history: Mother(V49.89, Z78.9) Status:Active Family history of atrial fib rillation: Father(V17.49, Z82.49) Status:Active Relationship Condition Age at Onset Recorded Date/T senia father Atrial fibrillation Unknown Advance Directives No Advanced Directives Records Found Advance Directive Response Recorded Date/ Time Living Will No December 12 7:08am 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 LAST PAP WAS 09/22/2019; ASCUS, HPV NEG. HAS NO CONCERNS. DOESA SELF BREAST CHECK. LMP: 10/06/2021 Chief Complaint and Reason for Visit Chief Complaint NOB LMP 03/06 Reason for Visit HSV (herpes simplex virus) infection Supervision of high risk , antepartum Chief Complaint INT LABS AND ORDER 12 WK OB 16 WK OB 20 WK OB 24 WK OB E-ORDER 28 WK OB/GLUCOSE Reason for Visit HSV (herpes simplex virus) infection Supervision of high risk , antepartum HSV (herpes simplex virus) infection Rubella non-immune status, antepartum Supervision of high risk , antepartum HSV (herpes simplex virus) infection Rubella non-immune status, antepartum Supervision of high risk , antepartum H/O LEEP HSV (herpes simplex virus) infection Rubella non-immune status, antepartum Supervision of high risk , antepartum H/O LEEP History of colposcopy HSV (herpes simplex virus) infection Rubella non-immune status, antepartum Supervision of high risk , antepartum Chief Complaint 24 WK OB E-ORDER 28 WK OB/GLUCOSE 30 WK OB 32 WK OB 34 WK OB 36 WK OB Uterine size-date discrepancy, third trimester 37 WK OB 38 WK OB 39 WK OB 40 WK OB 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 Reason for Visit H/O LEEP HSV (herpes simplex virus) infection Rubella non-immune status, antepartum Supervision of high risk , antepartum H/O LEEP History of colposcopy HSV (herpes simplex virus) infection Rubella non-immune status, antepartum Supervision of high risk , antepartum H/O LEEP HSV (herpes simplex virus) infection Rubella non-immune status, antepartum Supervision of high risk , antepartum H/O LEEP History of colposcopy HSV (herpes simplex virus) infection Rubella non-immune status, antepartum Supervision of high risk , antepartum H/O LEEP History of colposcopy HSV (herpes simplex virus) infection Rubella non-immune status, antepartum Supervision of high risk , antepartum H/O LEEP History of colposcopy HSV (herpes simplex virus) infection Rubella non-immune status, antepartum Supervision of high risk , antepartum Uterine size-date discrepancy, third trimester H/O LEEP History of colposcopy HSV (herpes simplex virus) infection Rubella non-immune status, antepartum Supervision of high risk , antepartum Uterine size-date discrepancy, third trimester H/O LEEP History of colposcopy HSV (herpes simplex virus) infection Rubella non-immune status, antepartum Supervision of high risk , antepartum Uterine size-date discrepancy, third trimester H/O LEEP History of colposcopy HSV (herpes simplex virus) infection Rubella non-immune status, antepartum Supervision of high risk , antepartum Uterine size-date discrepancy, third trimester H/O LEEP History of colposcopy HSV (herpes simplex virus) infection Rubella non-immune status, antepartum Supervision of high risk , antepartum H/O LEEP History of colposcopy HSV (herpes simplex virus) infection Rubella non-immune status, antepartum Vaginal delivery Supervision of high risk , antepartum Chief Complaint 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 DATE CREATED AUTHOR AUTHOR'S ORGANIZ ATION 07/21/2022 [facility] DATE CREATED AUTHOR AUTHOR'S ORGANIZ ATION 07/21/2023 [facility] DATE CREATED AUTHOR AUTHOR'S ORGANIZ ATION 06/08/2024 [facility] Care Teams (unrecognized sec tion and content) Team Status: Active Member Role Status Dates No Primary Care Physician Primary Care Provider Active Team Status: Inactive Member Role Status Dates No Primary Care Physician Primary Care Provider, Refer ring Provider Active Dr. Joyce Parry MD Attending Provider Active Team Status: Inactive Member Role Status Dates No Primary Care Physician Primary Care Provider Active Dr. Joyce Parry MD Attending Provider Active Team Status: Active Member Role Status Dates RACHEL LUCIANO Primary Care Provider Active Team Status: Inactive Member Role Status Dates No Primary Care Physician Primary Care Provider, Refer ring Provider Active Marce Gregorio SEAMLESS HOSIERY KNITTER, SEAMLESS HOSIERY KNITTER-C Attending Provider Active Team Status: Inactive Member Role Status Dates No Primary Care Physician Primary Care Provider, Refer ring Provider Active Larissa Smith CNM Attending Provider Active Team Status: Inactive Member Role Status Dates No Primary Care Physician Primary Care Provider, Refer ring Provider Active Dr. Karin Banda DO Attending Provider Activ e Team Status: Inactive Member Role Status Dates No Primary Care Physician Referring Provider Active Marce Gregorio SEAMLESS HOSIERY KNITTER, SEAMLESS HOSIERY KNITTER-C Attending Provider Active SHIVANI MONTESINOS , SEAMLESS HOSIERY KNITTER-C Primary Care Provider Active Team Status: Inactive Member Role Status Dates No Primary Care Physician Primary Care Provider Active Dr. Joyce Parry MD Attending Provider, Referr ing Provider Active Team Status: Inactive Member Role Status Dates SHIVANI MONTESINOS , SEAMLESS HOSIERY KNITTER-C Primary Care Provider Active Dr. Joyce Parry MD Attending Provider, Referr ing Provider Active Team Status: Inactive Member Role Status Dates No Primary Care Physician Referring Provider Active SHIVANI MONTESINOS , SEAMLESS HOSIERY KNITTER-C Primary Care Provider Active Marce Gregorio SEAMLESS HOSIERY KNITTER, SEAMLESS HOSIERY KNITTER-C Attending Provider Active Team Status: Inactive Member Role Status Dates No Primary Care Physician Referring Provider Active Salma Willingham CNM Attending Provider Active SHIVANI MONTESINOS SEAMLESS HOSIERY KNITTER-C Primary Care Provider Active Team Status: Inactive Member Role Status Dates No Primary Care Physician Referring Provider Active Dr. Joyce Parry MD Attending Provider Active SHIVANI MONTESINOS , SEAMLESS HOSIERY KNITTER-C Primary Care Provider Active Team Status: Inactive Member Role Status Dates No Primary Care Physician Referring Provider Active Larissa Smith CNM Attending Provider Active SHIVANI MONTESINOS , SEAMLESS HOSIERY KNITTER-C Primary Care Provider Active Team Status: Inactive Member Role Status Dates No Primary Care Physician Referring Provider Active Dr. Karin Banda DO Attending Provider Activ e SHIVANI MONTESINOS , SEAMLESS HOSIERY KNITTER-C Primary Care Provider Active Team Status: Active Member Role Status Dates SHIVANI MONTESINOS , SEAMLESS HOSIERY KNITTER-C Primary Care Provider Active Larissa Smith CNM Admit Provider, Referring Provid er, Other Provider Active Salma Willingham CNM Attending Provider Active Team Status: Active Member Role Status Dates SHIVANI MONTESINOS , SEAMLESS HOSIERY KNITTER-C Primary Care Provider Active Larissa Smith CNM Admit Provider, Re ferring Provider, Other Provider Active Marce Gregorio SEAMLESS HOSIERY KNITTER, SEAMLESS HOSIERY KNITTER-C Attending Provider Active Team Status: Active Member Role Status Dates SHIVANI MONTESINOS , SEAMLESS HOSIERY KNITTER-C Primary Care Provider Active Larissa Smith CNM Admit Provider, Re ferring Provider, Other Provider Active Dr. Joyce Parry MD Attending Provider Active Team Status: Inactive Member Role Status Dates SHIVANI MONTESINOS NP-C Primary Care Provider Active Larissa Smith CNM Admit Provider, At tending Provider, Referring Provider Active Team Status: Inactive Member Role Status Dates SHIVANI MONTESINOS NP-C Primary Care Provider, Referring Provider Active Dr. Joyce Parry MD Attending Provider Active Team Status: Inactive Member Role Status Dates RACHEL LUCIANO Primary Care Provider Active Dr. Karin Banda DO Attending Provider, Refe rring Provider Active Sheeter Helper Relationship Specialty Start Date End Date Shivani Montesinos, LONG WALL SHEAR OPERATOR-ASSESSMENT EXPERT [address] [place] [address] PCP - General 09/26/21 Goals (unrecognized section and content) Goals may be documented in a n alternate sectionGoals may be documented in an alternate sectionGoals may be documented in an alternate section Reason for Visit (unrecogniz ed section and content) Reason Comments Annual Exam Hemorrhoids FOR RECORDS PERTAINING TO PATIENTS WHO ARE OR HAVE BEEN ENROLLED IN A CHEMICAL DEPENDENCY/SUBSTANCEABUSE PROGRAM, SOME INFORMATION MAY BE OMITTED. This clinical summary was aggregated from multiple sources. Caution should be exercised in using it in the provision of clinical care. This summary normalizes information from multiple sources, and as a consequence, information in this document may materially change the coding, format and clinical context of patient data. In addition, data may be omitted in some cases. CLINICAL DECISIONS SHOULD BE BASED ON THE PRIMARY CLINICAL RECORDS. [facility] [employer] provides no warranty or guarantee of the accuracy or completeness of information in this document.
== END | disposition home or self-care (01) ==
LOC: LABSPEC 16:07
PROVIDERS: PCP Nurse Practitioner Family; Visit Provider Advanced Practice Midwife
DX: O09.90 Supervision of high risk pregnancy, unspecified, unspecified trimester (principal); Z3A.00 Weeks of gestation of pregnancy not specified
CPT/HCPCS: 87086; 87491; 87591

== ENCOUNTER 2025-01-22 12:58 | Day surgery (SDC) | payer OTHER, SELFPAY ==
--- NOTE | 2025-01-21 16:41 | PAT.ANE_ITS ---
Pre-Assessment Diagnosis/Proposed Procedure Planned Operative Procedure(s): SUCTION, D&C Anesthesia History Anesthesia History - finishing lab technician: Anesthesia History - finishing lab technician Hx Hospitalization No 01/21/25 11:28 Any Problems With Anesthesia No 01/21/25 11:28 Cholinesterase deficiency No 01/21/25 11:28 You/Your Family Experience No 01/21/25 11:28 fever (hyperthermia) with Relationship Recent Exposure to Contagious Disease Does patient have nerve No 01/21/25 11:28 stimulator Patient instructed to have device shut off --Does patient have Pacemaker or ICD? When Was Last Pacemaker Check QUESTION #4 FULL TEXT: You/Your Family Experience fever (hyperthermia) with Anesthesia Last Oral Intake Last Oral intake: Last Oral Intake NPO since Meds taken in AM with sips of water? Meds patient instructed to take am of surgery PONV PONV - finishing lab technician: PONV - finishing lab technician Female Yes 01/21/25 11:28 HX of Motion Sickness Yes 01/21/25 11:28 HX of N/V After Surgery No 01/21/25 11:28 Non-Smoker Yes 01/21/25 11:28 Duration of Surgery greater No 01/21/25 11:28 than 60 minutes Number of Risk Factors 3 01/21/25 11:28 PONV Score Moderate Risk 01/21/25 11:28 Height & Weight Height & Weight: Anesthesia: Height & Weight Height 5 ft 4 in 01/20/25 12:57 Respiratory Assessment Respiratory Assessment - finishing lab technician: Respiratory Tract Infection Hx - finishing lab technician Hx Respiratory Tract Infection No 01/21/25 11:28 STOP Sleep Apnea STOP Sleep Apnea - finishing lab technician: STOP Sleep Apnea - finishing lab technician Hx Hypertension No 01/21/25 11:28 Hx Sleep Apnea No 01/21/25 11:28 CPAP BIPAP Do you snore loudly (louder No 01/21/25 11:28 than talking or can be heard Do you often feel tired/ No 01/21/25 11:28 fatigued/ sleepy during daytime? Has anyone observed you stop No 01/21/25 11:28 breathing during sleep? STOP Results Negative 01/21/25 11:28 QUESTION #5 FULL TEXT : Do you snore loudly (louder than talking or can be heard through closed doors)? Tobacco Use History Tobacco Use History - finishing lab technician: Tobacco Use History - finishing lab technician Tobacco Use Smoking Status Never smoker 01/21/25 11:28 Hx Tobacco Use No 01/21/25 11:28 Years Smoking Packs Smoked per Day Smoking Cessation Date was within the last 15 years Hx Smoking Cessation Date Hx Smoking Cessation Counseling Hematologic Medial History Hematologic Hx - finishing lab technician: Hematologic Medical Hx - wastewater technician Hx of Blood Transfusion No 01/21/25 11:28 Hx of Transfusion in last 3 No 01/21/25 11:28 Months Date of Last Transfusion (if within last 3 months) Ever experience any problems No 01/21/25 11:28 with transfusion(s)? Specify any problems Hx of Preganancy in last 3 N/A 01/21/25 11:28 Months Nurse Filling Out Transfusion NBUCHER 01/21/25 11:28 & Questions: Date: 01/21/25 01/21/25 11:28 Time: 11:29 01/21/25 11:28 Patient unable to answer at this time (ie. confused, unrespo /Reproduction History /Reproductive History - finishing lab technician: /Reproductive Hx- finishing lab technician Hx Now No 01/21/25 11:28 Gestational Age (in weeks): EDC: Hx Hx Para Hx Section SAB No 01/21/25 11:28 Does the father of the baby or his family experience fever w Father of the baby Malignant Hypertension history comment Active Medications Active Medications: Current Medications Generic Name Dose Route Start Last Admin Trade Name Freq PRN Reason Stop Dose Admin Doxycycline Monohydrate 200 mg 01/22/25 10:00 Doxycycline 100 Mg Capsule PO 01/22/25 10:01 X1 [facility] Medical History Wears glasses Wears contact lenses Anxiety Migraine headache Non-smoker History of echocardiogram History of stress test HSV (herpes simplex virus) infection Home Medications ?Medication ?Instructions ?Recorded ?Last Taken ?Type multivitamin no.47-iron fum 27 1 cap PO DAILY 04/26/22 12/11/22 History mg-folate no.1 1 mg-dha 300 mg capsule (PNV-DHA) magnesium 250 mg tablet 250 mg PO DAILY 09/18/22 History Allergy/AdvReac Type Severity Reaction Status Date / Time Sulfa (Sulfonamide AdvReac Vomiting Verified 01/21/25 11:27 Antibiotics) Family History Father A-fib CVA (cerebral vascular accident), Onset Age: 70 Surgical History History of colposcopy H/O LEEP Social History adopted: No household members: spouse and children housing: house number of children: 1 current occupational status: employed 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 current occupational exposures/hazards: No pets and animals: Yes (Litter box-) pets and animals: cat(s) and dog(s) history of recent travel: Yes (-October) out of state: Yes out of country: No sexually active: Yes Smoking Status: Never smoker Electronic Cigarette Use: not used alcohol intake: current alcohol intake frequency: holidays/special occasions only details: Not while substance use type: does not use well-balanced diet: daily or most days caffeine: No eating out: 1-3 times/week during the past year weight has: remained stable what type of physical activity do you participate in: walking and weight training frequency: 3-4 times per week duration: 30-45 minutes/day tita/temple: Lutheran seatbelt use: always do you feel safe at home: Yes 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
[2025-01-22] VITALS (8 sets, daily range): BP systolic 87–114; BP diastolic 59–77; PULSE 69–79; RESP 12–18; TEMP 36.1–36.7; O2SAT 99–100; BMI 26.9
[2025-01-22] MEDS: Lactated Ringers 1,000 ML 15 ML IV (13:47)
--- NOTE | 2025-01-22 14:00 | HP.PCM_ITS ---
History and Physical OFFICE VISIT Date of Service: 01/20/25 Provider: REBECA Willingham Intake Vital Signs 06/03/2513:44 01/21/2512:57 Height 5 ft 4 in 5 ft 4 in Weight: 157 lb 7 oz BMI 27.0 BP 116/75 Intake Visit Reasons: LMP 11/17 CHANTEL 08/24 Chief Complaint: New OB Menagerie Superintendent Required: No Is patient in pain?: No Allergies Sulfa (Sulfonamide Antibiotics) Adverse Reaction (Verified 01/20/25 13:02) Vomiting Medications ?Medication ?Instructions ?Recorded ?Confirmed ?Type multivitamin no.47-iron fum 27 cap PO 04/26/22 01/20/25 History mg-folate no.1 1 mg-dha 300 mg capsule (PNV-DHA) magnesium 250 mg tablet 250 mg PO DAILY 09/18/22 01/20/25 Histor y Last Menstrual Period: 11/17/24 : No Have you fallen in the past year?: No PFSH PFSH Medical History HSV (herpes simplex virus) infection Surgical History History of colposcopy H/O LEEP Family History Father A-fib CVA (cerebral vascular accident), Onset Age: 70 Social History adopted: No household members: spouse and children housing: house number of children: 1 current occupational status: employed 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 current occupational exposures/hazards: No pets and animals: Yes (Litter box-) pets and animals: cat(s) and dog(s) history of recent travel: Yes (-October) out of state: Yes out of country: No sexually active: Yes Smoking Status: Never smoker Electronic Cigarette Use: not used alcohol intake: current alcohol intake frequency: holidays/special occasions only details: Not while substance use type: does not use well-balanced diet: daily or most days caffeine: No eating out: 1-3 times/week during the past year weight has: remained stable what type of physical activity do you participate in: walking and weight training frequency: 3-4 times per week duration: 30-45 minutes/day tita/mu-ism: Holiness seatbelt use: always do you feel safe at home: Yes 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 Date Name GA/Weeks Outcome Route Bth Weight Gen Labor Lgth Anesthesia Del Locatn Provider FOB 12/12/22 Kaci 40 live - full term 7#6oz Fem dharmesh epidural WC Salma Willingham CNM Lm Delivery Date: 12/12/22 Last Updated by: Rayna Carbajal LPN see problem list for complications, and KW IAL Girl 40.1 HPI LMP 11/17 CHANTEL 08/24 Details: GURDEEP BROWN is a 29 year old who presents for New OB visit. OB Visit CHANTEL Calculator Estimated Delivery Date Method Current WG Current Estimate 08/24/25 LMP (Certain) 9w 1d Comments: HIV: Urine Culture: Sequential Screen: NIPT Screen: Estimated Due Date: 08/24/25 Expected Delivery Route/Plan Labor Preferences- CB/BF classes: [] labor support person: [] labor intervention preferences: [] pain management options preferred: [] cut cord/dad catch: [] : [] PP control planned: [] discussed possible routes of delivery and associated risks: [] special requests: [] Specific Issue/Plans Covid status: [] Flu vaccine: [] Tdap vaccine: [] Rhogam: [] LARC form signed: [] Problem list reviewed and updated with the most current plan of care details and appropriate orders placed. Relevant counseling for the gestational age provided. Continue routine care and follow up unless otherwise noted in visit notes/problem list details Initial Weight: 157 lb Date -?-?-?-?-?-?-?-?-?-?-?-?- EGA Weight BP Urine Prot -?-?-?-?-?-?-?-?-?-?-?-?- Glucose FHR FuHt Pres Dilation -?-?-?-?-?-?-?-?-?-?-?-?- Effaced St Visit Note 01/20/25-?-?-?-?-?-?-?-?-?-?-?-?- 9w 1d 157 lb 7 oz(+7 oz) 116/75 -?-?-?-?-?-?-?-?-?-?-?-?- -?-?-?-?-?-?-?-?-?-?-?-?- KW- CRL 2.06 measuring 8.5 weeks. FHT and color flow absent. KV also scanned- formal US ordered for today. Menstrual History Last Menstrual Period: 11/17/24 Reported LMP: definite Normal amount/duration: Yes Frequency in days: 32 On hormonal BC at conception: No hCG+: 12/15/24 Antepartum Record Genetic Screening: Congenital Heart Defect: Other, Neural Tube Defect: Other, Hemoglobinopathy Or Carrier: Other, Cystic Fibrosis: Other, Chromosome Abnormality: Other, Rivas-Sachs: Other, Hemophilia: Other, Intellectual Disability/Autism: Other, Recurrent Loss/Stillbirth: Other, Other Structural Defect: Other, Other Genetic Disease: Other and Maternal Metabolic Disorder: Other Infection History: Live with someone with TB or Exposed to TB: No, Patient or Partner has history of Genital Herpes: Yes (Pt- HSV 1 per pt), Rash or Viral illness since last mentrual period: No, Prior GBS-Infected child: No, History of STD: No ( ), HIV Infection: No, History of Hepatitis: No, Recent travel outside of [place]: No, Concern for hepatitis exposure: No, Varicella immune: Yes (immune- virus) and Covid Vaccinated: Yes (Pfizer, No Boosters) Medical History Medical History: Positive: Drug/latex allergies/reactions (sulfa), Civil Technician surgery (Colposcopy, LEEP), History of abnormal pap (06/03 FILIBERTO had LEEP, 06/06 nml) and Relevant family history and Negative: Diabetes, Hypertension, Heart disease, Auto-immune disorder, Kidney disease/UTI, Neurologic/epilepsy, Psychiatric, Depression/ depression, Hepatitis/liver disease, Varicosities/phlebitis, Thyroid dysfunction, Trauma/domestic violence, History of blood transfusions, D (Rh) Sensitized, Pulmonary (e.g.,TB,Asthma), Seasonal allergies, Breast, Operations/hospitalizations, Anesthetic complications, Uterine anomaly/woodrow, Infertility, Anti-retroviral treatment and Other ACOG First Trimester First Trimester: Desire for , Alcohol, Tobacco Cessation, Illicit/Recreational Drug/Substance Use, Intimate Partner Violence, Barriers to care, Unstable Housing, Communication Barriers, Environmental/Work Hazards, Anticipated Course of Care, Nurtrition and weight gain, Toxoplasmosis Precations, Use of Any medications, Sexual activity, Exercise, Dental Care, Sauna/Hot tub use, Seat Belt use, Childbirth classes/Hospital facilities, Travel, Indications for Ultrasound and Screening for Aneuploidy; Discussed Second Trimester Second Trimester: Signs and Symptoms of Labor, Selecting a care provider, Reproductive Life Planning & Contreception, Care Planning, Depression/Anxiety and Intimate Partner Violence; Discussed Tobacco Cessation Third Trimester Third Trimester: Pain Management Plans, Labor support person(s), Immediate Larc, Movement Monitoring, Signs and Symptoms of Preeclampsia, Infant Feeding No , [place] Education and Family Medical Leave or Disability Forms ROS Const Reports system reviewed and no additional complaints, except as documented, Denies fatigue, Denies headache(s) and Denies lethargy ENT Denies headache(s) Card Reports system reviewed and no additional complaints, except as documented Resp Reports system reviewed and no additional complaints, except as documented GI Reports system reviewed and no additional complaints, except as documented, Denies abdominal pain, Denies constipation, Denies cramping, Denies diarrhea and Denies dyspepsia Reports system reviewed and no additional complaints, except as documented, Denies abnormal vaginal bleeding, Denies difficulty voiding, Denies dyspareunia and Denies dysuria Musc Reports system reviewed and no additional complaints, except as documented Skin/Breast Reports system reviewed and no additional complaints, except as documented Neuro Yes system reviewed and no additional complaints, except as documented and No headache(s) Psych Reports system reviewed and no additional complaints, except as documented, Denies anhedonia and Denies anxiety Endo Reports system reviewed and no additional complaints, except as documented and Denies fatigue Exam Const General: cooperative, healthy appearing and comfortable Neck Neck: normal visual inspection and full ROM Chest Chest palpation & inspection: normal inspection of the chest Breast inspection: normal inspection of the breasts and normal inspection of the axillae Breast palpation: normal palpation of the breasts and normal palpation of the axillae Resp Effort & Inspection: normal respiratory effort and able to speak in complete sentences GI Inspection: normal to inspection Palpation: soft External Female Exam: normal external appearance and normal appearance of the urethra Urethra: normal appearance of the urethra Skin General: no rashes or lesions noted Neuro General: patient alert, patient awake and patient oriented x3 Extrem General: normal to inspection and full ROM Psych Appearance: grossly normal and well kempt Mental Status: mental status grossly normal Mood: congruent mood Affect: normal affect Speech and Movement: speech and movement normal Thought Process: normal Thought Content: normal Coding Level of Care Code Off vis,est,level 4 No bleeding or abdominal pain today. UPDATE- I have seen the patient and performed any clinically relevant updates to the history and physical exam. Salma Melo, DO Assessment & Plan Assessment/Plan (1) Missed : PLAN: formal US demonstrated no cardiac activity measuring 8 weeks proceed w/ D&C doxycycline 200mg PO pre-op anora testing
[2025-01-22 14:08] LABS: Hematocrit 34.5 % (37-47); Hemoglobin 11.6 g/dL (12.0-15.0); Mean Corp Hgb Conc 33.6 g/dL (32-36); Mean Corpuscular Volume 91.3 fL (81-99); Mean Platelet Vol. 9.6 fl (6.2-12.0); Platelet Count 258 K/mm3 (150-450); RBC Distribution Width CV 11.7 % (11.6-14.6); RBC Distribution Width SD 39.0 fl (35.1-43.9); Red Blood Count 3.78 M/mm3 (4.2-5.4); White Blood Count 10.6 K/mm3 (4.4-11.0)
--- NOTE | 2025-01-22 14:16 | PRE.ANES_ITS ---
ASA Classification* ASA Classification ASA Classification: 2 and E Assessment & Plan Anesthesia* Anesthesia Assessment Anesthesia Assessment: Discussed sedation and/or anesthesia options, risks, benefits, and alternatives with patient/parents/legal guardian/POA. Questions invited. The patient/parents/legal guardian/POA seems to understand and agrees to proceed with anesthesia plan. Reviewed the physical assessment, medical history, allergy history and patient home medications list prior to surgery/procedure/anesthetic and documented any changes. Performed airway and anesthesia risk assessments. Anesthesia Type Anesthesia Type: MAC History Source History Obtained from:: Patient and Chart Anesthesia Focused Assessment* Temperature: 98.1 F Pulse Rate: 75 Blood Pressure: 114/77 Respiratory Rate: 18 Pulse Ox: 100 Oxygen Delivery Method: Room Air Airway Assessment Mouth opens: >3 cm Mallampati Score: I Teeth Condition: Intact Neck Range of motion (ROM): Full ROM Labs Anesthesia Preop lab: CBC WBC, (4.4-11.0) 10.6 K/mm3 Today, 13:48 RBC, (4.2-5.4) 3.78 M/mm3 L Today, 13:48 Hgb, (12.0-15.0) 11.6 g/dL L Today, 13:48 Hct, (37-47) 34.5 % L Today, 13:48 Plt Count, (150-450) 258 K/mm3 Today, 13:48 CHEMISTRY COAG Pre-Assessment Diagnosis/Proposed Procedure Planned Operative Procedure(s): SUCTION, D&C Anesthesia History 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 When Was Last Pacemaker Check QUESTION #4 FULL TEXT: You/Your Family Experience fever (hyperthermia) with Anesthesia Last Oral Intake Last Oral intake: Last Oral Intake NPO since 11:30 01/22/25 13:33 Meds taken in AM with sips of water? Meds patient instructed to take am of surgery PONV PONV - diesel locomotive engineer: PONV - diesel locomotive engineer Female Yes 01/21/25 11:28 HX of Motion Sickness Yes 01/21/25 11:28 HX of N/V After Surgery No 01/21/25 11:28 Non-Smoker Yes 01/21/25 11:28 Duration of Surgery greater No 01/21/25 11:28 than 60 minutes Number of Risk Factors 3 01/21/25 11:28 PONV Score Moderate Risk 01/21/25 11:28 Height & Weight Height & Weight: Anesthesia: Height & Weight Height 5 ft 4 in 01/22/25 13:33 Weight: 71 kg 01/22/25 13:33 Body Mass Index (BMI) 26.9 01/22/25 13:33 Respiratory Assessment Respiratory Assessment - diesel locomotive engineer: Respiratory Tract Infection Hx - diesel locomotive engineer Hx Respiratory Tract Infection No 01/21/25 11:28 STOP Sleep Apnea STOP Sleep Apnea - diesel locomotive engineer: STOP Sleep Apnea - diesel locomotive engineer Hx Hypertension No 01/21/25 11:28 Hx Sleep Apnea No 01/21/25 11:28 CPAP BIPAP Do you snore loudly (louder No 01/21/25 11:28 than talking or can be heard Do you often feel tired/ No 01/21/25 11:28 fatigued/ sleepy during daytime? Has anyone observed you stop No 01/21/25 11:28 breathing during sleep? STOP Results Negative 01/21/25 11:28 QUESTION #5 FULL TEXT : Do you snore loudly (louder than talking or can be heard through closed doors)? 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 Specify any problems Hx of Preganancy in last 3 N/A 01/21/25 11:28 Months Nurse Filling Out Transfusion NBUCHER 01/21/25 11:28 & Questions: Date: 01/21/25 01/21/25 11:28 Time: 11:29 01/21/25 11:28 Patient unable to answer at this time (ie. confused, unrespo /Reproduction History /Reproductive History - diesel locomotive engineer: /Reproductive Hx- diesel locomotive engineer Hx Now No 01/21/25 11:28 Gestational Age (in weeks): EDC: Hx Hx Para Hx Section SAB No 01/21/25 11:28 Does the father of the baby or his family experience fever w Father of the baby Malignant Hypertension history comment Active Medications Active Medications: Current Medications Generic Name Dose Route Start Last Admin Trade Name Freq PRN Reason Stop Dose Admin Lactated Ringer's 1,000 mls @ 15 mls/hr 01/22/25 13:30 01/22/25 13:47 IV 15 mls/hr .Q48H RADHA Administration PFSH Medical History Wears glasses Wears contact lenses Anxiety Migraine headache Non-smoker History of echocardiogram History of stress test HSV (herpes simplex virus) infection Home Medications ?Medication ?Instructions ?Recorded ?Last Taken ?Type multivitamin no.47-iron fum 27 1 cap PO DAILY 04/26/22 12/11/22 History mg-folate no.1 1 mg-dha 300 mg capsule (PNV-DHA) magnesium 250 mg tablet 250 mg PO DAILY 09/18/22 History Allergy/AdvReac Type Severity Reaction Status Date / Time Sulfa (Sulfonamide AdvReac Vomiting Verified 01/22/25 13:32 Antibiotics) Family History Father A-fib CVA (cerebral vascular accident), Onset Age: 70 Surgical History History of colposcopy H/O LEEP Social History adopted: No household members: spouse and children housing: house number of children: 1 current occupational status: employed 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 current occupational exposures/hazards: No pets and animals: Yes (Litter box-) pets and animals: cat(s) and dog(s) history of recent travel: Yes (-October) out of state: Yes out of country: No sexually active: Yes Smoking Status: Never smoker Electronic Cigarette Use: not used alcohol intake: current alcohol intake frequency: holidays/special occasions only details: Not while substance use type: does not use well-balanced diet: daily or most days caffeine: No eating out: 1-3 times/week during the past year weight has: remained stable what type of physical activity do you participate in: walking and weight training frequency: 3-4 times per week duration: 30-45 minutes/day tita/mu-ism: Yarsanism seatbelt use: always do you feel safe at home: Yes 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
[2025-01-22] MEDS: Midazolam 2 MG/2 ML Syringe IV (14:39)
[2025-01-22] MEDS: fentaNYL 100 MCG/2 ML Ampul 50 MCG IV (14:47)
--- NOTE | 2025-01-22 15:01 | PCM.POST.ANE ---
Anesthesia: Postop Eval I Current Vital Signs Temperature: 98 F Pulse Rate: 72 Blood Pressure: 87/59 Respiratory Rate: 12 Pulse Ox: 99 Oxygen Delivery Method: Room Air Assessment Airway patent: Yes Spontaneous unlabored respirations: Yes Mental status: Awake and Calm nausea: No Vomiting: No Anesthesia Complication: No Fluid Hydration Crystalloid volume administer (ml): 900 Total IV fluid infused: 900 Progress Note Anesthesia document: Postop Eval 1 completed: Yes
--- NOTE | 2025-01-22 15:23 | EX.PCM.DISCH ---
Discharge Instructions Procedure D&C Diet Discharge Diet: No restrictions and Light diet - advance as tolerated Activity Discharge Activity: Return to Normal Activity and May Shower May resume sexual activity in: 1-2 weeks Weight Bearing Status: Weight bearing as tolerated Lifting Restrictions: none Dressing / Incision Call your doctor if you observe: Fever of 101 or Higher, Using more than 1 pad per hour, Shortness of breath and Uncontrolled pain Follow Up Care When: Call [phone] to schedule appointment. Test Results: Test results from this visit will be discussed in further detail at your follow-up appointment, if applicable. Discharge Plan Admission Primary Reason for Your Visit: D&C Attending Provider: Salma Melo Primary Care Provider: SHIVANI MONTESINOS Instructions Patient Instructions: Miscarriage Dc Print Language: Emirati Discharge Orders/Prescriptions Prescriptions: No Action PNV-DHA 27 mg iron-1 mg -300 mg capsule 1 cap PO DAILY magnesium 250 mg tablet 250 mg PO DAILY Referrals / Follow Up: SHIVANI MONTESINOS, [employer] TE[employer] [Primary Care Provider, Family Practice] Disposition Disposition (needs filled in before D/C Order can be placed): Home, Self Care
--- NOTE | 2025-01-22 15:31 | PCM.OPRPT ---
Operative Report (Standard) Operative Information Date of Procedure: 01/22/25 Pre-Operative Diagnosis: missed Post-Operative Diagnosis: same as pre-op Surgery/Procedure Performed: suction dilation and curettage, ANORA interactive web developer: No Type of Anesthesia: MAC RN Documented Start/Stop Times: Operation Date: 01/22/25 14:30 Case Time Into Pre-Op 01/22/25 13:16 Out of Pre-Op 01/22/25 14:27 Anesthesia Start 01/22/25 14:30 Into Room 01/22/25 14:30 Procedure Start 01/22/25 14:48 Procedure End 01/22/25 15:00 Anesthesia End 01/22/25 15:09 Out of Room 01/22/25 15:09 Into Recovery 01/22/25 15:11 Procedure Start Time: 14:48 Procedure Stop Time: 15:00 Select all DRAINS/GRAFTS/IMPLANTS that apply: None Estimated Blood Loss: 150 cc Specimen collected: Yes Description of specimen(s) removed: products of conception Description of surgery: Patient was taken to the operating room and placed under MAC local anesthesia. She was prepped and draped in the normal sterile fashion the dorsal lithotomy position. Bladder was drained of clear urine and anterior lip of the cervix was grasped and the uterus sounded to 9cm. Cervix was progressively dilated to allow passage of a 9 curved suction curette. Progressive passes were made removing the retained products of conception without complication. Sharp curettage confirmed complete removal of the retained products. All instruments were removed from the vagina and excellent hemostasis was noted and the patient was taken to recovery in stable condition. Surgical Findings: 8 week loss Complications Complications: No
[2025-01-22] MEDS: Ketorolac 30 MG/ML Syringe IV (15:55)
--- NOTE | 2025-01-22 21:07 | POSTOPAN2_ITS ---
Anesthesia Postop Eval I Sum Postop Eval Completion status Anesthesia document: Postop Eval 1 completed: Yes Anesthesia Postop Eval I Summary Anesthesia Postop Eval I Summary: Anesthesia Postop Eval I: Assessment Summary Airway patent Yes 01/22/25 15:02 DIGITAL DIRECTOR.MDOT Spontaneous unlabored Yes 01/22/25 15:02 DIGITAL DIRECTOR.MDOT respirations Mental status Awake,Calm 01/22/25 15:02 DIGITAL DIRECTOR.MDOT nausea No 01/22/25 15:02 DIGITAL DIRECTOR.MDOT Vomiting No 01/22/25 15:02 DIGITAL DIRECTOR.MDOT Anesthesia Postop Eval I: Fluid Summary Crystalloid volume administer 900 01/22/25 15:02 DIGITAL DIRECTOR.MDOT (ml) Colloids volume administered ( ml) Blood Product volume administered (ml) Total IV fluid infused 900 01/22/25 15:02 DIGITAL DIRECTOR.MDOT Anesthesia Postop Eval I: Summary Notes Anesthesia Complication No 01/22/25 15:02 DIGITAL DIRECTOR.MDOT Anesthesia Complication Comment: Post-operative progress note Anesthesia: Postop Eval II Evaluation Mental status: Awake and Calm Pain Level: 2 nausea: No Vomiting: No Complications Anesthesia Complication: No
--- NOTE | 2025-01-22 21:07 | PCM.POSTANE2 ---
Anesthesia Postop Eval I Sum Postop Eval Completion status Anesthesia document: Postop Eval 1 completed: Yes Anesthesia Postop Eval I Summary Anesthesia Postop Eval I Summary: Anesthesia Postop Eval I: Assessment Summary Airway patent Yes 01/22/25 15:02 WORKERS COMPENSATION LEGAL SECRETARY.MDOT Spontaneous unlabored Yes 01/22/25 15:02 WORKERS COMPENSATION LEGAL SECRETARY.MDOT respirations Mental status Awake,Calm 01/22/25 15:02 WORKERS COMPENSATION LEGAL SECRETARY.MDOT nausea No 01/22/25 15:02 WORKERS COMPENSATION LEGAL SECRETARY.MDOT Vomiting No 01/22/25 15:02 WORKERS COMPENSATION LEGAL SECRETARY.MDOT Anesthesia Postop Eval I: Fluid Summary Crystalloid volume administer 900 01/22/25 15:02 WORKERS COMPENSATION LEGAL SECRETARY.MDOT (ml) Colloids volume administered ( ml) Blood Product volume administered (ml) Total IV fluid infused 900 01/22/25 15:02 WORKERS COMPENSATION LEGAL SECRETARY.MDOT Anesthesia Postop Eval I: Summary Notes Anesthesia Complication No 01/22/25 15:02 WORKERS COMPENSATION LEGAL SECRETARY.MDOT Anesthesia Complication Comment: Post-operative progress note Anesthesia: Postop Eval II Evaluation Mental status: Awake and Calm Pain Level: 2 nausea: No Vomiting: No Complications Anesthesia Complication: No
[2025-01-26 08:19] LABS: Pathology Specimen OB SEE PATHOLOGY REPORT
== END 2025-01-22 16:17 | disposition home or self-care (01) ==
LOC: SDC 13:02 → AC 13:02
PROVIDERS: PCP Nurse Practitioner Family; Referring Provider Student in an Organized Health Care Education/Training Program; Visit Provider Student in an Organized Health Care Education/Training Program
PROC: (CPT 59820; principal; 2025-01-22 14:15)
DX: O02.1 Missed abortion (principal)
CPT/HCPCS: 59820; 01965; 85027; 86850; 86900; 86901; 88305; J2405

== ENCOUNTER → 2025-02-09 | Outpatient (CLI) | payer OTHER, SELFPAY ==
--- NOTE | 2025-02-09 16:09 | US_ITS ---
PROCEDURE: PELVIC W/ TRANSVAGINAL 02/09/2025 REASON FOR EXAM: STILL BLEEDING AFTER SUCTION D C TECHNIQUE: Procedure Code: [id number] Modality: US Procedure: PELVIC W/ TRANSVAGINAL COMPARISON: None. FINDINGS: The uterus measures 10.0 x 5.8 x 5.0 cm. There is no radiographic evidence of fibroids. The endometrium is heterogeneous, which may be normal after endometrial intervention. There is hyperemia of the endometrium. The cervix is unremarkable. The endometrial thickness is 16 mm. The right ovary measures 2.8 x 3.1 x 1.6 cm with no radiographic evidence of torsion. The left ovary measures 4.6 x 2.5 x 2.4 cm with no radiographic evidence of torsion. There are multiple follicles in the left ovary. There is no free fluid in the posterior cul-de-sac. US/Pelvic w/ Transvaginal IMPRESSION: Heterogeneous endometrium with increased vascularity, which may be normal after endometrial intervention. No radiographic evidence of ovarian torsion. Reading Location: [id number]
[2025-02-09 17:19] LABS: hCG Titer Quant., Serum 85 mIU/mL (<9 non-preg)
== END | disposition home or self-care (01) ==
LOC: US 15:58
PROVIDERS: Obstetrics & Gynecology; PCP Nurse Practitioner Family; Referring Provider Student in an Organized Health Care Education/Training Program; Visit Provider Student in an Organized Health Care Education/Training Program
DX: O02.1 Missed abortion (principal)
CPT/HCPCS: 36415; 76830; 76856; 84702